=== PATIENT | male | born 1940 | race Caucasian/White ===

== ENCOUNTER 2018-06-24 06:10 | Day surgery (SDC) | payer OTHER, MEDICARE ==
[2018-06-24] MEDS ORDERED: Ringers Lactate 1,000 ML IV ONE (06:39)
[2018-06-24] MEDS ORDERED: LIDOCAINE 1% MPF 2 ML AMPULE ONE (07:49)
[2018-06-24] MEDS ORDERED: PROPOFOL 200 MG/20 ML VIAL IV ONE (07:49)
--- NOTE | 2018-06-24 08:21 | ENDO RPT ---
[address], [address] COLONOSCOPY PROCEDURE REPORT EXAM DATE: 06/24/2018 PATIENT NAME: Jose David Rangel MR #: [id number] BIRTHDATE: 1940 ATTENDING: Yonathan Oro Dr STATUS: outpatient TOOL/DIE MAKER: Theresa Coleman and Abby Washington RN INDICATIONS: The patient is a 78 yr old Male here for a colonoscopy due to personal history of colon polyps PROCEDURE PERFORMED: Colonoscopy MEDICATIONS: Per Anesthesia. ESTIMATED BLOOD LOSS: None CONSENT: The patient understands the risks and benefits of the procedure and understands that these risks include, but are not limited to: sedation, allergic reaction, infection, perforation and/or bleeding. Alternative means of evaluation and treatment include, among others: physical exam, x-rays, and/or surgical intervention. The patient elects to proceed with this endoscopic procedure. DESCRIPTION OF PROCEDURE: During intra-op preparation period all mechanical medical equipment was checked for proper function. Hand hygiene and appropriate measures for infection prevention was taken. Procedure, possible complications, alternatives including, but not limited to possibility of bleeding, perforation, tear, infection, sepsis, need for surgery, need for blood transfusion, were explained to the patient. After the risks, benefits and alternatives of the procedure were thoroughly explained, Informed consent was verified, confirmed and timeout was successfully executed by the treatment team. The patient was placed in the left lateral position. A digital rectal exam was performed and revealed a possible small nodule on the right lobe of the prostate. After appropriate level of anesthesia, the scope was passed. The [id number] ([id number]) endoscope was introduced through the anus and advanced to the cecum. The quality of the prep was poor. The instrument was then slowly withdrawn as the colon was fully examined. Scope withdrawal time was 7 minutes. COLON FINDINGS: Small internal hemorrhoids were found. Retroflexed views revealed small hemorrhoids. The scope was then completely withdrawn from the patient and the procedure terminated. ADVERSE EVENTS: There were no complications. IMPRESSIONS: 1. Small internal hemorrhoids 2. Intubation to cecum 3. Possible small nodule on the right lobe of the prostate RECOMMENDATIONS: 1. fiber rich diet 2. urology f/u RECALL: None scheduled due to age (78 y.o.) Yonathan Oro Dr eSigned: Yonathan Oro Dr 06/24/2018 8:09 AM cc: CPT CODES: ICD9 CODES: 600.1 Nodular prostate PATIENT NAME: Jose David Rangel MR#: [id number]
--- OUTSIDE RECORDS SUMMARY | 2018-06-24 08:24 | XMS REPORT | Clinical Summary ---
:1940 Author Organization [facility] Address [address] [place] [address] Phone Care Team Providers Name Role Phone Unavailable Primary Care Provider Unavailable Allergies Active Allergy Reactions Severity Noted Date Comments Codeine 09/18/2016 Stomach cramps Current Medications Prescription Sig. Disp. Refills Start Date End Date Status clopidogrel (PLAVIX) 75 Take 75 mg by mouth Active mg tablet daily. digoxin (LANOXIN) 0.125 Take 125 mcg by Active MG tablet mouth daily. carvedilol (COREG) 6.25 Take 6.25 mg by Active MG tablet mouth 2 (two) times daily with breakfast and dinner. pravastatin (PRAVACHOL) Take 80 mg by mouth Active 80 MG tablet daily. sacubitril-valsartan Take 1 tablet by Active (ENTRESTO) 24-26 mg Tab mouth 2 (two) times daily. omeprazole (PRILOSEC) 20 Take 20 mg by mouth Active MG capsule daily. aspirin 81 MG EC tablet Take 81 mg by mouth Active daily. Active Problems Problem Noted Date Cardiomyopathy (HCC) 09/19/2016 Social History Tobacco Use Types Packs/Day Years Used Date Former Smoker Quit: 10/13/1973 Alcohol Use Drinks/Week oz/Week Comments No ocassional Sex Assigned at Date Recorded Not on file Last Filed Vital Signs Not on file Plan of Treatment Not on file Implants Implanted Type Area City Route Driver Device Expiration Model / Identifier Date Serial / Lot Lead [id number] Df4 Active Sc Sprint 55cm Pacemaker Lead N/A: MEDTRONIC [id number] / Implanted: Qty: 1 on 09/19/2016 by Sly Nieto MD Heart [id number] / [id number] Icd-Vr [id number] Visia Mri Af Us Df4 Pacemakers N/A: [employer]TRONIC 01/07/2018 [id number] / Implanted: Qty: 1 on 09/19/2016 by Sly Nieto MD Chest [id number] / Wall [id number] Results Not on fileafter 06/23/2017
== END 2018-06-24 08:41 | disposition home or self-care (01) ==
LOC: OR 06:10
PROVIDERS: ATTEND Internal Medicine Gastroenterology
PROC: 0DJD8ZZ Inspection of Lower Intestinal Tract, Via Natural or Artificial Opening Endoscopic (ICD-10-PCS; principal; 2018-06-24 07:30)
DX: K64.8 Other hemorrhoids (principal); Z86.010 Personal history of colon polyps; I10 Essential (primary) hypertension; I25.10 Atherosclerotic heart disease of native coronary artery without angina pectoris; K21.9 Gastro-esophageal reflux disease without esophagitis; Z91.011 Allergy to milk products; Z88.6 Allergy status to analgesic agent; Z95.810 Presence of automatic (implantable) cardiac defibrillator; Z95.1 Presence of aortocoronary bypass graft; Z87.891 Personal history of nicotine dependence; Z80.1 Family history of malignant neoplasm of trachea, bronchus and lung; Z80.51 Family history of malignant neoplasm of kidney; Z82.3 Family history of stroke
CPT/HCPCS: 45378; J2001

== ENCOUNTER 2018-12-11 14:56 | Emergency (ER) | payer OTHER, MEDICARE ==
--- OUTSIDE RECORDS SUMMARY | 2018-12-11 14:58 | XMS REPORT | Clinical Summary ---
:1940 Author Organization [facility] Address [address] [place] [address] Care Team Providers Name Role Phone Stuart Clemens MD Primary Care Provider Allergies Active Allergy Reactions Severity Noted Date Comments Codeine 09/18/2016 Stomach cramps Medications Medication Sig Dispensed Refills Start Date End Date Status clopidogrel (PLAVIX) Take 75 mg by mouth 0 Active 75 mg tablet daily. digoxin (LANOXIN) Take 125 mcg by 0 Active 0.125 MG tablet mouth daily. carvedilol (COREG) Take 6.25 mg by 0 Active 6.25 MG tablet mouth 2 (two) times daily with breakfast and dinner. pravastatin Take 80 mg by mouth 0 Active (PRAVACHOL) 80 MG daily. tablet sacubitril-valsartan Take 1 tablet by 0 Active (ENTRESTO) 24-26 mg mouth 2 (two) times Tab daily. omeprazole (PRILOSEC) Take 20 mg by mouth 0 Active 20 MG capsule daily. aspirin 81 MG EC Take 81 mg by mouth 0 Active tablet daily. Active Problems Problem Noted Date Cardiomyopathy 09/19/2016 Social History Tobacco Use Types Packs/Day Years Used Date Former Smoker Quit: 10/13/1973 Alcohol Use Drinks/Week oz/Week Comments No ocassional Sex Assigned at Date Recorded Not on file Job Start Date Occupation Industry Not on file Not on file Not on file Travel History Travel Start Travel End No recent travel history available. Last Filed Vital Signs Not on file Plan of Treatment Not on file Implants Implanted Type Area Operations Vice President Device Shelf Model / Identifier Expiration Serial / Date Lot Lead [id number] Df4 Active Sc Sprint 55cm Pacemaker Lead N/A: [employer] [id number] / Implanted: Qty: 1 on 09/19/2016 by Sly Nieto MD Heart [id number] / [id number] Icd-Vr [id number] Visia Mri Af Us Df4 Pacemakers N/A: [employer] 01/07/2018 [id number] / Implanted: Qty: 1 on 09/19/2016 by Sly Nieto MD Chest [id number] / Wall [id number] Results Not on fileafter 12/10/2017 Insurance Payer Benefit Plan / Group Subscriber ID Type Phone Address MEDICARE MEDICARE A B xxxxxxxxxx Medicare MCR SUPPLEMENT/INDIVIDUAL AARP/[facility] xxxxxxxxxxx [facility] [place] [address] Advance Directives For more information, please contact:[address] [phone] Code Status Date Activated Date Inactivated Comments Full Code 09/19/2016 10:28 AM 09/20/2016 1:24 PM This code status was determined by: Patient
[2018-12-11] MEDS ORDERED: SILVER NITRATE 1 APPL TOP ONE (15:40)
--- NOTE | 2018-12-11 15:47 | ER ---
Nurse's Notes [facility] Name: Jose David Rangel Age: 78 yrs Sex: Male : 1940 Arrival Date: 12/11/2018 Time: 14:59 Bed 25 Private MD: Stuart Clemens Diagnosis: Abrasion of left upper arm Presentation: 12/11 15:02 Presenting complaint: Patient states: i had a biopsy on my L upper arm and its still hj bleeding till today; reports taking blood thinners- aspirin 81 mg and plavix;. Transition of care: patient was not received from another setting of care. Onset of symptoms was December 11, 2018. Risk Assessment: Do you want to hurt yourself or someone else? Patient reports no desire to harm self or others. Initial Sepsis Screen: Does the patient meet any 2 criteria? No. Patient's initial sepsis screen is negative. Does the patient have a suspected source of infection? No. Patient's initial sepsis screen is negative. Care prior to arrival: None. 15:02 Method Of Arrival: Ambulatory 15:02 Acuity: ANALILIA 4 hj Triage Assessment: 15:05 General: Appears in no apparent distress. uncomfortable, Behavior is calm, cooperative, hj appropriate for age. Pain: Complains of pain in left bicep. Historical: - Allergies: 15:05 Codeine; hj - Home Meds: 15:05 Aspirin Oral [Active]; Plavix Oral [Active]; hj 15:05 Digoxin Oral [Active]; hj - PMHx: 15:05 Hypertension; Myocardial infarction; hj - PSHx: 15:05 CABG; Heart stents; Defibrillator; hj - Immunization history:: Adult Immunizations up to date. - Social history:: Smoking status: Patient/guardian denies using tobacco, Patient/guardian denies using alcohol. - Ebola Screening: : Patient negative for fever greater than or equal to 101.5 degrees Fahrenheit, and additional compatible Ebola Virus Disease symptoms Patient denies exposure to infectious person Patient denies travel to an Ebola-affected area in the 21 days before illness onset. Screenin:05 Abuse screen: Denies threats or abuse. Denies injuries from another. Nutritional hj screening: No deficits noted. Tuberculosis screening: No symptoms or risk factors identified. Fall Risk None identified. Assessment: 15:26 General: Appears in no apparent distress. comfortable, well groomed, well developed, tl3 well nourished, Behavior is calm, cooperative, appropriate for age. Pain: Denies pain. Neuro: Level of Consciousness is awake, alert, Oriented to person, place, time, situation, Appropriate for age. Cardiovascular: Patient's skin is warm and dry. Respiratory: Airway is patent Respiratory effort is even, unlabored, Respiratory pattern is regular, symmetrical. GI: No signs and/or symptoms were reported involving the gastrointestinal system. : No signs and/or symptoms were reported regarding the genitourinary system. EENT: No signs and/or symptoms were reported regarding the EENT system. Derm: Wound noted left arm and left bicep Other: pt had biopsy yesterday, site continues to bleed. 16:38 Reassessment: Patient appears in no apparent distress at this time. No changes from tl3 previously documented assessment. Patient and/or family updated on plan of care and expected duration. Pain level reassessed. Patient is alert, oriented x 3, equal unlabored respirations, skin warm/dry/pink. pt being discharged. Vital Signs: 15:06 BP 142 / 66; Pulse 72; Resp 18; Temp 98.6(O); Pulse Ox 96% on R/A; Weight 73.48 kg; Height 5 ft. 4 in. (162.56 cm); Pain 5/10; 16:38 BP 136 / 84; Pulse 76; Resp 18; Pulse Ox 100% on R/A; tl3 15:06 Body Mass Index 27.81 (73.48 kg, 162.56 cm) ED Course: 14:59 Patient arrived in ED. mr 15:00 Stuart Clemens DO is Private Physician. mr 15:04 Triage completed. hj 15:06 Arm band placed on right wrist. hj 15:06 Patient has correct armband on for positive identification. Bed in low position. Call light in reach. Side rails up X 1. Adult w/ patient. 15:24 Blanca Levine FNP is PHCP. nh 15:24 Samir Crane MD is Attending Physician. nh 15:26 Shannan Myles, RN is Primary Nurse. tl3 16:38 No provider procedures requiring assistance completed. Patient did not have IV access tl3 during this emergency room visit. Administered Medications: No medications were administered Outcome: 15:46 Discharge ordered by . wv 16:38 Discharged to home ambulatory. tl3 16:38 Condition: stable 16:38 Discharge instructions given to patient, Instructed on discharge instructions, follow up and referral plans. Demonstrated understanding of instructions, follow-up care. 16:41 Patient left the ED. tl3 Signatures: Blanca Levine, DATABASE MODELER DATABASE MODELER Tanya Walsh Neno Pena RN RN Shannan Myles RN RN tl3 Corrections: (The following items were deleted from the chart) 15:08 15:06 Pulse 72bpm; Resp 18bpm; Pulse Ox 96% RA; Temp 98.6F Oral; 73.48 kg; Height 5 ft. hj 4 in.; BMI: 27.8; Pain 5/10; hj
--- NOTE | 2018-12-11 15:47 | EDPHYS ---
Physician Documentation [facility] Name: Jose David Rangel Age: 78 yrs Sex: Male : 1940 Arrival Date: 12/11/2018 Time: 14:59 Bed 25 Private MD: Stuart Clemens ED Physician Samir Crane HPI: 12/11 15:40 This 78 yrs old Male presents to ER via Ambulatory with complaints of Wound nh bleeding. 15:40 Onset: The symptoms/episode began/occurred acutely, just prior to arrival. Modifying nh factors: The patient symptoms are alleviated by nothing, the patient symptoms are aggravated by nothing. The patient has not experienced similar symptoms in the past. Patient had biopsy yesterday and is on blood thinners. Wound will not stop bleeding. . Historical: - Allergies: 15:05 Codeine; hj - Home Meds: 15:05 Aspirin Oral [Active]; Plavix Oral [Active]; hj 15:05 Digoxin Oral [Active]; hj - PMHx: 15:05 Hypertension; Myocardial infarction; hj - PSHx: 15:05 CABG; Heart stents; Defibrillator; hj - Immunization history:: Adult Immunizations up to date. - Social history:: Smoking status: Patient/guardian denies using tobacco, Patient/guardian denies using alcohol. - Ebola Screening: : Patient negative for fever greater than or equal to 101.5 degrees Fahrenheit, and additional compatible Ebola Virus Disease symptoms Patient denies exposure to infectious person Patient denies travel to an Ebola-affected area in the 21 days before illness onset. ROS: 15:40 Constitutional: Negative for fever, chills, and weight loss, Eyes: Negative for injury, nh pain, redness, and discharge, ENT: Negative for injury, pain, and discharge, Neck: Negative for injury, pain, and swelling, Cardiovascular: Negative for chest pain, palpitations, and edema, Respiratory: Negative for shortness of breath, cough, wheezing, and pleuritic chest pain, Abdomen/GI: Negative for abdominal pain, nausea, vomiting, diarrhea, and constipation, Back: Negative for injury and pain, : Negative for injury, bleeding, discharge, and swelling, MS/Extremity: Negative for injury and deformity, Neuro: Negative for headache, weakness, numbness, tingling, and seizure. 15:40 Skin: Positive for bleeding. Exam: 15:40 Constitutional: This is a well developed, well nourished patient who is awake, alert, nh and in no acute distress. Head/Face: Normocephalic, atraumatic. Eyes: Pupils equal round and reactive to light, extra-ocular motions intact. Lids and lashes normal. Conjunctiva and sclera are non-icteric and not injected. Cornea within normal limits. Periorbital areas with no swelling, redness, or edema. ENT: Nares patent. No nasal discharge, no septal abnormalities noted. Tympanic membranes are normal and external auditory canals are clear. Oropharynx with no redness, swelling, or masses, exudates, or evidence of obstruction, uvula midline. Mucous membranes moist. Neck: Trachea midline, no thyromegaly or masses palpated, and no cervical lymphadenopathy. Supple, full range of motion without nuchal rigidity, or vertebral point tenderness. No Meningismus. Chest/axilla: Normal chest wall appearance and motion. Nontender with no deformity. No lesions are appreciated. Cardiovascular: Regular rate and rhythm with a normal S1 and S2. No gallops, murmurs, or rubs. Normal PMI, no JVD. No pulse deficits. Respiratory: Lungs have equal breath sounds bilaterally, clear to auscultation and percussion. No rales, rhonchi or wheezes noted. No increased work of breathing, no retractions or nasal flaring. Abdomen/GI: Soft, non-tender, with normal bowel sounds. No distension or tympany. No guarding or rebound. No evidence of tenderness throughout. Back: No spinal tenderness. No costovertebral tenderness. Full range of motion. MS/ Extremity: Pulses equal, no cyanosis. Neurovascular intact. Full, normal range of motion. Neuro: Awake and alert, GCS 15, oriented to person, place, time, and situation. Cranial nerves II-XII grossly intact. Motor strength 5/5 in all extremities. Sensory grossly intact. Cerebellar exam normal. Normal gait. Psych: Awake, alert, with orientation to person, place and time. Behavior, mood, and affect are within normal limits. 15:40 Skin: injury, Patient has wound to left upper arm from biopsy performed yesterday. It is still oozing blood. Vital Signs: 15:06 BP 142 / 66; Pulse 72; Resp 18; Temp 98.6(O); Pulse Ox 96% on R/A; Weight 73.48 kg; Height 5 ft. 4 in. (162.56 cm); Pain 5/10; 16:38 BP 136 / 84; Pulse 76; Resp 18; Pulse Ox 100% on R/A; tl3 15:06 Body Mass Index 27.81 (73.48 kg, 162.56 cm) MDM: 15:24 Patient medically screened. ne 15:40 Data reviewed: vital signs, nurses notes, I have discussed the patient's ne presentation/case with the attending Emergency Department Physician; and as a result, I will discharge patient. Counseling: I had a detailed discussion with the patient and/or guardian regarding: the historical points, exam findings, and any diagnostic results supporting the discharge/admit diagnosis, the need for outpatient follow up, to return to the emergency department if symptoms worsen or persist or if there are any questions or concerns that arise at home. Administered Medications: No medications were administered Disposition: 12/11/18 15:46 Discharged to Home. Impression: Abrasion of left upper arm. - Condition is Stable. - Discharge Instructions: Wound Care. - Medication Reconciliation Form, Thank You Letter, Antibiotic Education, Prescription Opioid Use form. - Follow up: Private Physician; When: 48 Hours; Reason: Recheck today's complaints. - Problem is new. - Symptoms are resolved. Signatures: Blanca Levine, GEOPHYSICAL DATA TECHNICIAN GEOPHYSICAL DATA TECHNICIAN ne Neno Pena RN RN Shannan Myles RN RN tl3 Corrections: (The following items were deleted from the chart) 16:41 15:46 12/11/2018 15:46 Discharged to Home. Impression: Abrasion of left upper arm. tl3 Condition is Stable. Forms are Medication Reconciliation Form, Thank You Letter, Antibiotic Education, Prescription Opioid Use. Follow up: Private Physician; When: 48 Hours; Reason: Recheck today's complaints. Problem is new. Symptoms are resolved. nh
== END 2018-12-11 16:41 | disposition home or self-care (01) ==
LOC: ER 14:56
DX: S40.812A Abrasion of left upper arm, initial encounter (principal); I10 Essential (primary) hypertension; I25.2 Old myocardial infarction; Z79.01 Long term (current) use of anticoagulants; Z79.82 Long term (current) use of aspirin; Z88.5 Allergy status to narcotic agent; Z95.1 Presence of aortocoronary bypass graft; Z95.810 Presence of automatic (implantable) cardiac defibrillator
CPT/HCPCS: 99281

== ENCOUNTER 2020-06-04 12:34 | Emergency (ER) | payer OTHER, MEDICARE ==
--- OUTSIDE RECORDS SUMMARY | 2020-06-04 12:36 | XMS REPORT | Clinical Summary ---
:1940 Author Organization [facility] Address [address] [place] [address] Care Team Providers Name Role Phone Jun Clemens MD Primary Care Provider Allergies Active [...] Packs/Day Years Used Date Former Smoker Quit: 10/13/18 75 Alcohol Use Drinks/Week oz/Week Comments No ocassional Sex Assigned at Date Recorded Not on file Job Start Date Occupation Industry Not on file Not on file Not on file Travel History Travel Start Travel End No recent travel history available. Last Filed Vital Signs Not on file Plan of Treatment Not on file Implants Implanted Type Area Csr Technician Device Shelf Model / Identifier Expiration Serial / Date Lot Lead [id number] Df4 Active Sc Sprint 55cm Pacemaker Lead N/A: [employer] 2018 [id number] / Implanted: Qty: 1 on 09/19/2016 by Sly Nieto MD art [id number] / [id number] Icd-Vr [id number] Visia Mri Af Us Df4 Pacemakers N/A: [employer] 01/07/2018 [id number] / Implanted: Qty: 1 on 09/19/2016 by Sly Nieto MD est [id number] / Wall [id number] Results Not on fileafter 06/04/2019 Insurance Payer Benefit Plan / Group Subscriber ID Type Phone A ddress MEDICARE MEDICARE A B xxxxxxxxxx Medicare MCR SUPPLEMENT/INDIVIDUAL AARP/[facility] xxxxxxxxxxx [facility] Advance Directives For more information, please contact:[address] [phone] Code Status Date Activated Date Inactivated Comments Full Code 09/19/2016 10:28 AM 09/20/2016 1:24 PM This code status was determined by: Patient
--- NOTE | 2020-06-04 15:06 | RAD REPORT ---
EXAM DESCRIPTION: RAD - Chest Single View - 06/04/2020 2:20 pm CLINICAL HISTORY: Cough;SOB COMPARISON: October 2017 TECHNIQUE: AP portable chest image was obtained 06/04/2020 2:20 pm . FINDINGS: Interstitial thickening is present. There are scattered patchy alveolar opacities present. No focal dense consolidation or mass. Cardiomegaly is present. Vascular engorgement in place. Defibr illator remains in place. CABG surgical changes seen. No measurable pleural effusion and no pneumotho rax. No acute bony abnormality seen. No acute aortic findings suspected. IMPRESSION: Mild to moderate CHF/volume overload pattern.
[2020-06-04 15:07] LABS: Protime INR 1.92
[2020-06-04 15:16] LABS: Absolute Lymphocytes (CBC) 0.9 K/uL (0.7-4.9); Basophils % 0.4 % (0-1.3); Hematocrit 38.6 % (39.6-49.0); Lymphocytes % 12.9 % (15.3-44.8); MPV 11.1 fL (7.6-11.3); RBC Red Blood Cell Count 3.99 M/uL (4.33-5.43)
[2020-06-04 15:20] LABS: Albumin 3.6 g/dL (3.4-5.0); Bilirubin Direct 0.4 mg/dL (0-0.2); Potassium 4.3 mmol/L (3.5-5.1); Protein, Total 6.9 g/dL (6.4-8.2); Troponin (Emerg Dept Use Only) 0.03 ng/mL (0.0-0.045)
--- NOTE | 2020-06-04 16:01 | EDPHYS ---
Physician Documentation [facility] Name: Jose David Rangel Age: 80 yrs Sex: Male : 1940 Arrival Date: 06/04/2020 Time: 12:35 Bed 6 Private MD: ED Physician Everton Guy HPI: 06/04 13:59 This 80 yrs old Male presents to ER via Wheelchair with complaints of pm1 Breathing Difficulty. 13:59 The patient has shortness of breath with light activity. Onset: The symptoms/episode pm1 began/occurred 3 week(s) ago. Duration: The symptoms are continuous. The patient's shortness of breath is aggravated by light activity, is alleviated by rest. Associated signs and symptoms: Pertinent positives: productive cough, Pertinent negatives: chest pain, dizziness, fever, nausea, vomiting. The patient has been recently seen by a physician: Seen by his six sigma black belt engineer for the same complaint. 15:36 Patient is not currently taking any diuretics and has been drinking 6 bottled beaver pm1 per day. Historical: - Allergies: 13:00 Codeine; jl7 - Home Meds: 13:00 Digoxin Oral [Active]; Aspirin Oral [Active]; Eliquis oral oral [Active]; pravastatin jl7 oral oral [Active]; carvedilol oral oral [Active]; - PMHx: 13:00 Hypertension; Myocardial infarction; Hyperlipidemia; jl7 - PSHx: 13:00 CABG; Heart stents; Defibrillator; jl7 - Immunization history:: Adult Immunizations up to date. - Social history:: Smoking status: Patient denies any tobacco usage or history of. ROS: 13:59 Constitutional: Negative for fever, chills, and weight loss, Eyes: Negative for injury, pm1 pain, redness, and discharge, ENT: Negative for injury, pain, and discharge, Neck: Negative for injury, pain, and swelling, Cardiovascular: Negative for chest pain, palpitations, and edema. 13:59 Abdomen/GI: Negative for abdominal pain, nausea, vomiting, diarrhea, and constipation, Back: Negative for injury and pain, MS/Extremity: Negative for injury and deformity, Skin: Negative for injury, rash, and discoloration, Neuro: Negative for headache, weakness, numbness, tingling, and seizure. 13:59 Respiratory: Positive for cough, shortness of breath, Negative for wheezing. Exam: 13:59 Constitutional: This is a well developed, well nourished patient who is awake, alert, pm1 and in no acute distress. Head/Face: Normocephalic, atraumatic. Eyes: Pupils equal round and reactive to light, extra-ocular motions intact. Lids and lashes normal. Conjunctiva and sclera are non-icteric and not injected. Cornea within normal limits. Periorbital areas with no swelling, redness, or edema. ENT: Nares patent. No nasal discharge, no septal abnormalities noted. Tympanic membranes are normal and external auditory canals are clear. Oropharynx with no redness, swelling, or masses, exudates, or evidence of obstruction, uvula midline. Mucous membranes moist. Neck: Trachea midline, no thyromegaly or masses palpated, and no cervical lymphadenopathy. Supple, full range of motion without nuchal rigidity, or vertebral point tenderness. No Meningismus. Chest/axilla: Normal chest wall appearance and motion. Nontender with no deformity. No lesions are appreciated. Cardiovascular: Regular rate and rhythm with a normal S1 and S2. No gallops, murmurs, or rubs. Normal PMI, no JVD. No pulse deficits. 13:59 Back: No spinal tenderness. No costovertebral tenderness. Full range of motion. 13:59 Skin: Warm, dry with normal turgor. Normal color with no rashes, no lesions, and no evidence of cellulitis. MS/ Extremity: Pulses equal, no cyanosis. Neurovascular intact. Full, normal range of motion. 13:59 Respiratory: the patient does not display signs of respiratory distress, Respirations: normal, Breath sounds: decreased breath sounds, are located in both bases. 13:59 Abdomen/GI: Inspection: abdomen appears normal, Palpation: abdomen is soft and non-tender, in all quadrants. 13:59 Neuro: Exam negative for acute changes, Orientation: is normal, Mentation: is normal, Motor: is normal, moves all fours, Gait: is steady, at a normal pace, without difficulty. Vital Signs: 12:55 BP 147 / 86; Pulse 73; Resp 17; Temp 98; Pulse Ox 98% ; jl7 14:00 BP 136 / 82; Pulse 82; Resp 17; Pulse Ox 97% ; bp 15:00 BP 143 / 80; Pulse 60; Resp 16; Pulse Ox 96% ; bp 16:00 BP 143 / 67; Pulse 72; Resp 16; Pulse Ox 99% ; bp MDM: 13:57 Refusal of service: The patient/guardian displays adequate decision making capability pm1 and despite a detailed discussion of alternatives, benefits, risks, and consequences refuses: patient refuses covid swab, flu, swab, strep swab, blood work and ECG. He does not want any swabs, especially any in the nose. He refused the EKG and blood work because he said that he just got them done with his six sigma black belt engineer. He just wants a chest x-ray. 14:17 Data reviewed: vital signs. Data interpreted: Pulse oximetry: on room air is 98 %. pm1 Interpretation: normal. 15:46 Physician consultation: Raghav Delgado MD was called at 15:46. pm1 15:57 Physician consultation: Dynamics Ax Developer Miguel Covering for Dr. Raghav Delgado. Informed pm1 that the patient does not want to stay in the hospital and would rather be treated outpatient. Patient is not currently taking any diuretics. Agrees with plan to discharge the patient home with Lasix and can follow up with him in 2-3 days in the office. 15:57 Counseling: I had a detailed discussion with the patient and/or guardian regarding: the pm1 historical points, exam findings, and any diagnostic results supporting the discharge/admit diagnosis, lab results, radiology results, the need for outpatient follow up, to return to the emergency department if symptoms worsen or persist or if there are any questions or concerns that arise at home. 06/04 14:38 Order name: Basic Metabolic Panel; Complete Time: 15:36 pm1 06/04 14:38 Order name: CBC with Diff pm1 06/04 14:38 Order name: LFT's; Complete Time: 15:36 pm1 06/04 14:38 Order name: Magnesium; Complete Time: 15:36 pm1 06/04 14:38 Order name: NT PRO-BNP; Complete Time: 15:36 pm1 06/04 14:38 Order name: PT-INR; Complete Time: 15:36 pm1 06/04 13:57 Order name: Chest Single View XRAY; Complete Time: 15:11 pm1 06/04 14:38 Order name: Troponin (emerg Dept Use Only); Complete Time: 15:36 pm1 06/04 14:38 Order name: EKG; Complete Time: 14:39 pm1 06/04 14:38 Order name: Cardiac monitoring; Complete Time: 14:59 pm1 06/04 14:38 Order name: EKG - Nurse/Tech; Complete Time: 14:59 pm1 06/04 14:38 Order name: IV Saline Lock; Complete Time: 14:59 pm1 06/04 14:38 Order name: Labs collected and sent; Complete Time: 14:59 pm1 06/04 14:38 Order name: O2 Per Protocol; Complete Time: 14:44 pm1 06/04 14:38 Order name: O2 Sat Monitoring; Complete Time: 14:44 pm1 Administered Medications: 16:00 Drug: Lasix 20 mg Route: IVP; Site: right antecubital; bp Disposition: 06/05 12:03 Co-signature as Attending Physician, Everton Guy MD I agree with the assessment and libra plan of care. Disposition: 06/04/20 16:01 Discharged to Home. Impression: Congestive heart failure, Volume overload. - Condition is Stable. - Discharge Instructions: Heart Failure. - Prescriptions for Lasix 20 mg Oral Tablet - take 1 tablet by ORAL route once daily; 20 tablet. - Medication Reconciliation Form, Thank You Letter, Antibiotic Education, Prescription Opioid Use form. - Follow up: Emergency Department; When: As needed; Reason: Worsening of condition. Follow up: Private Physician; When: 2 - 3 days; Reason: Recheck today's complaints, Continuance of care, Re-evaluation by your physician. - Problem is new. - Symptoms have improved. Signatures: Dispatcher [employer] Everton Almanza MD MD cha Calderon, Audri, RN RN aa5 Tomas Apodaca, MAYE SHANK STITCHER pm1 Brittanie Morgan RN RN jl7 Jostin Ge RN RN bp Corrections: (The following items were deleted from the chart) 06/04 13:59 13:46 Patient medically screened. pm1 pm1 16:31 16:01 06/04/2020 16:01 Discharged to Home. Impression: Congestive heart failureVolume aa5 overload. Condition is Stable. Forms are Medication Reconciliation Form, Thank You Letter, Antibiotic Education, Prescription Opioid Use. Follow up: Emergency Department; When: As needed; Reason: Worsening of condition. Follow up: Private Physician; When: 2 - 3 days; Reason: Recheck today's complaints, Continuance of care, Re-evaluation by your physician. Problem is new. Symptoms have improved. pm1
--- NOTE | 2020-06-04 16:01 | ER ---
Nurse's Notes [facility] Name: Jose David Rangel Age: 80 yrs Sex: Male : 1940 Arrival Date: 06/04/2020 Time: 12:35 Bed 6 Private MD: Diagnosis: Volume overload;Congestive heart failure Presentation: 06/04 12:55 Chief complaint: Chief complaint: Patient states: Worsening shortness of breath x 3 jl7 weeks, denies fever, denies cough. Coronavirus screen: Client denies travel out of the [place] in the last 14 days. shortness of breath, Client presents with at least one sign or symptom that may indicate coronavirus-19. Standard/surgical mask placed on the client. Provider contacted for isolation considerations. Ebola Screen: No symptoms or risks identified at this time. Initial Sepsis Screen: Does the patient meet any 2 criteria? No. Patient's initial sepsis screen is negative. Does the patient have a suspected source of infection? No. Patient's initial sepsis screen is negative. Risk Assessment: Do you want to hurt yourself or someone else? Patient reports no desire to harm self or others. Onset of symptoms was May 13, 2020. Care prior to arrival: None. Transition of care: patient was not received from another setting of care. 12:55 Method Of Arrival: Wheelchair jl7 12:55 Acuity: ANALILIA 3 jl7 Triage Assessment: 13:00 General: Appears in no apparent distress. uncomfortable, Behavior is calm, cooperative, jl7 appropriate for age. Pain: Denies pain. Neuro: Level of Consciousness is awake, alert, obeys commands, Oriented to person, place, time, situation. Cardiovascular: Patient's skin is warm and dry. Respiratory: Reports shortness of breath at rest Airway is patent Respiratory effort is even, unlabored, Respiratory pattern is regular, symmetrical, Onset: The symptoms/episode began/occurred gradually, the patient has mild shortness of breath. Derm: Skin is pink, warm \T\ dry. Historical: - Allergies: 13:00 Codeine; jl7 - Home Meds: 13:00 Digoxin Oral [Active]; Aspirin Oral [Active]; Eliquis oral oral [Active]; pravastatin jl7 oral oral [Active]; carvedilol oral oral [Active]; - PMHx: 13:00 Hypertension; Myocardial infarction; Hyperlipidemia; jl7 - PSHx: 13:00 CABG; Heart stents; Defibrillator; jl7 - Immunization history:: Adult Immunizations up to date. - Social history:: Smoking status: Patient denies any tobacco usage or history of. Screenin:05 Abuse screen: Denies threats or abuse. Denies injuries from another. Nutritional bp screening: No deficits noted. Tuberculosis screening: No symptoms or risk factors identified. Fall Risk None identified. Assessment: 13:00 General: SEE TRIAGE NOTE. bp 13:00 Cardiovascular: Rhythm is sinus rhythm. Respiratory: Airway is patent Breath sounds are bp coarse bilaterally. 14:30 Reassessment: PT NOW REQUESTING PREVIOUSLY DECLINED W/U. bp 16:00 Reassessment: PT DIURESING WELL. VS STABLE. bp 16:30 Reassessment: Patient is alert, oriented x 3, equal unlabored respirations, skin aa5 warm/dry/pink. Vital Signs: 12:55 BP 147 / 86; Pulse 73; Resp 17; Temp 98; Pulse Ox 98% ; jl7 14:00 BP 136 / 82; Pulse 82; Resp 17; Pulse Ox 97% ; bp 15:00 BP 143 / 80; Pulse 60; Resp 16; Pulse Ox 96% ; bp 16:00 BP 143 / 67; Pulse 72; Resp 16; Pulse Ox 99% ; bp ED Course: 12:35 Patient arrived in ED. ag5 12:57 Triage completed. jl7 13:00 Arm band placed on right wrist. Patient placed in waiting room, in a wheelchair, in jl7 view of staff members, Patient notified of wait time. 13:43 Tomas Apodaca NP is PHCP. pm1 13:43 Everton Guy MD is Attending Physician. pm1 14:04 Jostin Ge, MINNA is Primary Nurse. bp 14:05 Patient has correct armband on for positive identification. Bed in low position. Call bp light in reach. Side rails up X2. 14:20 Chest Single View XRAY In Process Unspecified. EDMS 14:55 Initial lab(s) drawn, by me, sent to lab. Inserted saline lock: 20 gauge in right kj1 antecubital area, using aseptic technique. Blood collected. 16:30 No provider procedures requiring assistance completed. IV discontinued, intact, aa5 bleeding controlled, No redness/swelling at site. Pressure dressing applied. Administered Medications: 16:00 Drug: Lasix 20 mg Route: IVP; Site: right antecubital; bp Outcome: 16:01 Discharge ordered by . pm1 16:30 Discharged to home ambulatory, with significant other. aa5 16:30 Condition: stable 16:30 Discharge instructions given to patient, Instructed on discharge instructions, follow up and referral plans. medication usage, Demonstrated understanding of instructions, follow-up care, medications, Prescriptions given X 1. 16:31 Patient left the ED. aa5 Signatures: Dispatcher [employer] EDMS Jessica Smith RN RN aa5 Tomas Apodaca, MAYE ASIAN STUDIES PROGRAM CHAIR pm1 Brittanie Morgan RN RN jl7 Jostin Ge RN RN Dilshad House ag5 Ibeth Kenney kj1
[2020-06-04] MEDS ORDERED: FUROSEMIDE 20 MG/ 2ML VIAL ONE (16:18)
[2020-06-04 17:08] LABS: Platelet Estimate DECR; Urine White Blood Cell Casts OK
[2020-06-04 17:09] LABS: Blood Morphology Comment NOT SEEN (NOT SEEN)
== END 2020-06-04 16:31 | disposition home or self-care (01) ==
LOC: ER 12:34
DX: I50.9 Heart failure, unspecified (principal); E87.70 Fluid overload, unspecified; I10 Essential (primary) hypertension; E78.5 Hyperlipidemia, unspecified; Z95.1 Presence of aortocoronary bypass graft; Z95.818 Presence of other cardiac implants and grafts; Z79.01 Long term (current) use of anticoagulants; Z79.82 Long term (current) use of aspirin; Z88.5 Allergy status to narcotic agent
CPT/HCPCS: 85025; 80048; 36415; 83735; 85610; 80076; 84484; 83880; 71045; J1940; 96374; 99284

== ENCOUNTER 2020-07-03 01:22 | Emergency (ER) | payer OTHER, MEDICARE ==
--- OUTSIDE RECORDS SUMMARY | 2020-07-03 01:23 | XMS REPORT | Clinical Summary ---
:1940 Author Organization [facility] Address [address] [place] [address] Care Team Providers Name Role Phone Jun [...] Not on file Implants Implanted Type Area Engine Designer Device Shelf Model / Identifier Expiration Serial / Date Lot Lead [id number] Df4 Active Sc Sprint 55cm Pacemaker Lead N/A: MEDT RONIC 2018 [id number] / Implanted: Qty: 1 on 09/19/2016 by Sly Nieto MD art [id number] / [id number] Icd-Vr [id number] Visia Mri Af Us Df4 Pacemakers N/A: MED[employer]ONIC 01/07/2018 [id number] / Implanted: Qty: 1 on 09/19/2016 by Sly Nieto MD est [id number] / Wall [id number] Results Not on fileafter 07/03/2019 Insurance Payer Benefit Plan / Group Subscriber ID Type Phone A ddress MEDICARE MEDICARE A B xxxxxxxxxx Medicare MCR SUPPLEMENT/INDIVIDUAL AARP/[facility] xxxxxxxxxxx [facility] Advance Directives For more information, please contact:[address] [phone] Code Status Date Activated Date Inactivated Comments Full Code 09/19/2016 10:28 AM 09/20/2016 1:24 PM This code status was determined by: Patient
[2020-07-03] MEDS ORDERED: PANTOPRAZOLE 40 MG INJ ONE ×2 (01:58→05:05)
[2020-07-03 02:02] LABS: Absolute Lymphocytes (CBC) 1.2 K/uL (0.7-4.9); Basophils % 0.5 % (0-1.3); Lymphocytes % 14.2 % (15.3-44.8); MPV 10.7 fL (7.6-11.3); RBC Red Blood Cell Count 1.65 M/uL (4.33-5.43)
[2020-07-03 02:05] LABS: Hematocrit 15.3 % (39.6-49.0)
[2020-07-03 02:06] LABS: Protime INR 2.43
[2020-07-03 02:16] LABS: Albumin 3.1 g/dL (3.4-5.0); Bilirubin Direct 0.2 mg/dL (0-0.2); Bilirubin Total 0.6 mg/dL (0.2-1.0); Potassium 3.9 mmol/L (3.5-5.1); Protein, Total 5.8 g/dL (6.4-8.2); Troponin (Emerg Dept Use Only) 0.06 ng/mL (0.0-0.045)
[2020-07-03] MEDS ORDERED: NA CHLORIDE 0.9% 500 ML ONE (03:51)
[2020-07-03] MEDS ORDERED: NA CHLORIDE 0.9% 250 ML ONE (05:05)
--- NOTE | 2020-07-03 06:05 | EDPHYS ---
Physician Documentation [facility] Name: Jose David Rangel Age: 80 yrs Sex: Male : 1940 Arrival Date: 07/03/2020 Time: 01:25 Bed 4 Private MD: Stuart Clemens ED Physician Kendall Gifford HPI: 07/03 01:57 This 80 yrs old Male presents to ER via EMS with complaints of Rectal mh7 Bleeding. 01:57 The patient presents to the emergency department with bleeding from the rectum/anus, mh7 that is moderate. Onset: The symptoms/episode began/occurred 1 week(s) ago. Context: the patient none. Modifying factors: The symptoms are alleviated by nothing, The symptoms are aggravated by bowel movement. Associate signs and symptoms: Pertinent positives: abdominal pain in the suprapubic area, lower GI bleeding, bright red, vomiting, Pertinent negatives: constipation, diarrhea, dysuria, fever. Historical: - Allergies: 01:25 Codeine; jb4 - Home Meds: 01:25 Aspirin Oral [Active]; Aspirin Oral [Active]; carvedilol Oral [Active]; Digoxin Oral jb4 [Active]; Eliquis Oral [Active]; Plavix Oral [Active]; pravastatin Oral [Active]; - PMHx: 01:25 Hyperlipidemia; Hypertension; Myocardial infarction; jb4 - PSHx: 01:25 CABG; Heart stents; Defibrillator; jb4 - Immunization history:: Adult Immunizations up to date. - Social history:: Smoking status: Patient denies any tobacco usage or history of. Patient/guardian denies using alcohol, street drugs. ROS: 01:57 Constitutional: Negative for fever, chills, and weight loss, Eyes: Negative for injury, mh7 pain, redness, and discharge, ENT: Negative for injury, pain, and discharge, Neck: Negative for injury, pain, and swelling, Cardiovascular: Negative for chest pain, palpitations, and edema, Respiratory: Negative for shortness of breath, cough, wheezing, and pleuritic chest pain, Back: Negative for injury and pain, : Negative for injury, bleeding, discharge, and swelling, MS/Extremity: Negative for injury and deformity, Skin: Negative for injury, rash, and discoloration, Neuro: Negative for headache, weakness, numbness, tingling, and seizure, Psych: Negative for depression, anxiety, suicide ideation, homicidal ideation, and hallucinations, Allergy/Immunology: Negative for hives, rash, and allergies, Endocrine: Negative for neck swelling, polydipsia, polyuria, polyphagia, and marked weight changes, Hematologic/Lymphatic: Negative for swollen nodes, abnormal bleeding, and unusual bruising. Exam: 01:57 Head/Face: Normocephalic, atraumatic. mh7 01:57 Neck: Trachea midline, no thyromegaly or masses palpated, and no cervical lymphadenopathy. Supple, full range of motion without nuchal rigidity, or vertebral point tenderness. No Meningismus. Chest/axilla: Normal chest wall appearance and motion. Nontender with no deformity. No lesions are appreciated. Cardiovascular: Regular rate and rhythm with a normal S1 and S2. No gallops, murmurs, or rubs. Normal PMI, no JVD. No pulse deficits. Respiratory: Lungs have equal breath sounds bilaterally, clear to auscultation and percussion. No rales, rhonchi or wheezes noted. No increased work of breathing, no retractions or nasal flaring. 01:57 Back: No spinal tenderness. No costovertebral tenderness. Full range of motion. 01:57 MS/ Extremity: Pulses equal, no cyanosis. Neurovascular intact. Full, normal range of motion. Neuro: Awake and alert, GCS 15, oriented to person, place, time, and situation. Cranial nerves II-XII grossly intact. Motor strength 5/5 in all extremities. Sensory grossly intact. Cerebellar exam normal. Normal gait. Psych: Awake, alert, with orientation to person, place and time. Behavior, mood, and affect are within normal limits. 01:57 Constitutional: The patient appears in no acute distress, alert, awake, uncomfortable. 01:57 Eyes: Periorbital structures: appear normal, Pupils: equal, round, and reactive to light and accomodation, Extraocular movements: intact throughout, Conjunctiva: pale, bilaterally, Corneas: Sclera: no appreciated abnormality, Lids and lashes: appear normal. 01:57 Abdomen/GI: Inspection: abdomen appears normal, Bowel sounds: normal, in all quadrants, Palpation: abdomen is soft and non-tender, in all quadrants, Rectal exam: rectal tone normal, Stool: grossly bloody, guaiac positive, hemorrhoid(s), are not appreciated, mass, is not appreciated, swelling, is not appreciated, tenderness, is not appreciated, Indicators: McBurney's point is not tender, Almonte's sign is negative, Rovsing's sign is negative, Obturator sign is negative, Psoas sign is negative, Liver: no appreciated palpable abnormalities, Hernia: not appreciated. 01:57 Skin: pale. Vital Signs: 01:25 BP 111 / 58; Pulse 74; Resp 16; Temp 98.0(TE); Pulse Ox 100% on R/A; Weight 72.57 kg jb4 (R); Height 5 ft. 4 in. (162.56 cm) (R); Pain 9/10; 02:00 BP 117 / 75; Pulse 71; Resp 18; Pulse Ox 100% on R/A; mg2 03:43 BP 105 / 53; Pulse 73; Resp 18; Pulse Ox 100% on R/A; mg2 04:45 BP 113 / 52; Pulse 72; Resp 18; Pulse Ox 100% on R/A; sg 05:30 BP 120 / 43; Pulse 73; Resp 18; Pulse Ox 100% on R/A; sg 06:02 BP 121 / 90; Pulse 72; Resp 18; Pulse Ox 100% on R/A; mg2 06:15 BP 123 / 73; Pulse 75; Resp 18; Temp 98.2; Pulse Ox 100% on R/A; sg 07:00 BP 127 / 61; Pulse 77; Resp 13; Temp 98.2; Pulse Ox 100% ; bp 01:25 Body Mass Index 27.46 (72.57 kg, 162.56 cm) [facility] MDM: 01:[address] [facility] 06:01 Differential diagnosis: hemorrhoids, fissure, Rectal Bleeding, GI Bleeding. Data [facility] reviewed: vital signs, nurses notes, EMS record, lab test result(s), cardiac enzymes, CBC, electrolytes, urinalysis, EKG, radiologic studies, CT scan, plain films. Data interpreted: Pulse oximetry: on room air is 100 %. Interpretation: normal. Counseling: I had a detailed discussion with the patient and/or guardian regarding: the historical points, exam findings, and any diagnostic results supporting the discharge/admit diagnosis, lab results, radiology results, the need to transfer to another facility, for higher level of care, [facility] does not immediately have the required specialist. Response to treatment: the patient's symptoms have markedly improved after treatment. 07/03 01:43 Order name: CBC with Diff; Complete Time: 02:10 [facility] 07/03 01:43 Order name: Basic Metabolic Panel; Complete Time: 02:29 [facility] 07/03 01:43 Order name: Protime (+inr); Complete Time: 02: [facility] 07/03 01:43 Order name: Ptt, Activated; Complete Time: 02: [facility] 07/03 01:43 Order name: LFT's; Complete Time: 02:29 [facility] 07/03 01:43 Order name: Troponin (emerg Dept Use Only); Complete Time: 02: [facility] 07/03 01:43 Order name: Type And Screen [facility] 07/03 02:35 Order name: Packed RBC Leukored [facility] 07/03 03:28 Order name: ABO/RH no charge; Complete Time: 03:31 [facility] 07/03 05:59 Order name: SARS-COV-2 RT PCR [facility] 07/03 01:43 Order name: EKG - Nurse/Tech; Complete Time: 01:51 [facility] 07/03 01:44 Order name: Saline Lock; Complete Time: 01:46 [facility] 07/03 02:10 Order name: Transfuse; Complete Time: 04:48 [facility] 07/03 02:14 Order name: CT Abd/Pelvis - Without Contrast [facility] 07/03 02:29 Order name: Chest Single View XRAY [facility] 07/03 07:32 Order name: EKG Electrocardiogram [facility] 07/03 07:32 Order name: EKG Electrocardiogram [facility] Administered Medications: 01:59 Drug: ProTONIX 80 mg Route: IVP; Site: right wrist; mg2 02:25 Follow up: Response: No adverse reaction jb4 05:17 Drug: ProTONIX 8 mg/hr Route: IV; Rate: 25 ml/hr; Site: right wrist; mg2 07:23 Follow up: IV Status: Infusion continued upon transfer bp Disposition: 07/03/20 06:04 Transfer ordered to [facility]. Diagnosis is Lower Gastrointestinal Bleeding. - Reason for transfer: Higher level of care. - Accepting physician is Dr. Bowling. - Condition is Serious. - Problem is new. - Symptoms have improved. Signatures: Dispatcher [employer] EDUT Javier Renteria, RN RN Braulio Guerra RN RN jb4 Tripp Zhao RN RN [facility] [place] Kendall Gifford MD MD 7 Jostin Ge RN bp Corrections: (The following items were deleted from the chart) 02:35 02:10 PACKED RBC LEUKORED -1+BB.LAB.BRZ ordered. EDMS EDMS 02:35 02:11 ABO/RH typing ordered. EDMS EDMS 02:35 02:11 Antibody Screen ordered. EDMS EDMS 05:59 04:57 CORONAVIRUS ordered. EDMS EDMS 07:57 06:04 07/03/2020 06:04 Transfer ordered to [facility]. Diagnosis is Lower em Gastrointestinal Bleeding. Reason for transfer: Higher level of care. Accepting physician is Dr. Bowling. Condition is Serious. Problem is new. Symptoms have improved. mh7
--- NOTE | 2020-07-03 06:05 | ER ---
Nurse's Notes [facility] Name: Jose David Rangel Age: 80 yrs Sex: Male : 1940 Arrival Date: 07/03/2020 Time: 01:25 Bed 4 Private MD: Stuart Clemens Diagnosis: Lower Gastrointestinal Bleeding Presentation: 07/03 01:25 Chief complaint: EMS states: PT reports bright bloody bowel movements for 1 week. Is jb4 currently taking Eliquis. Also reports vomiting and abdominal pain below the umbilicus that is 9/10. 01:25 Coronavirus screen: Client denies travel out of the [place] in the last 14 days. At this jb4 time, the client does not indicate any symptoms associated with coronavirus-19. Ebola Screen: No symptoms or risks identified at this time. Initial Sepsis Screen: Does the patient meet any 2 criteria? No. Patient's initial sepsis screen is negative. Does the patient have a suspected source of infection? No. Patient's initial sepsis screen is negative. Risk Assessment: Do you want to hurt yourself or someone else? Patient reports no desire to harm self or others. Onset of symptoms was July 03, 2020. Transition of care: patient was not received from another setting of care. 01:25 Method Of Arrival: EMS: [facility] 4 01:25 Acuity: ANALILIA 3 jb4 Historical: - Allergies: :25 Codeine; jb4 - Home Meds: 01:25 Aspirin Oral [Active]; Aspirin Oral [Active]; carvedilol Oral [Active]; Digoxin Oral jb4 [Active]; Eliquis Oral [Active]; Plavix Oral [Active]; pravastatin Oral [Active]; - PMHx: 01:25 Hyperlipidemia; Hypertension; Myocardial infarction; jb4 - PSHx: 01:25 CABG; Heart stents; Defibrillator; jb4 - Immunization history:: Adult Immunizations up to date. - Social history:: Smoking status: Patient denies any tobacco usage or history of. Patient/guardian denies using alcohol, street drugs. Screenin:00 Abuse screen: Denies threats or abuse. Denies injuries from another. Nutritional mg2 screening: No deficits noted. Tuberculosis screening: No symptoms or risk factors identified. Fall Risk IV access (20 points). Assessment: 02:00 General: Appears in no apparent distress. comfortable, Behavior is calm, cooperative. mg2 Pain: Complains of pain in abdomen. Neuro: Level of Consciousness is awake, alert, obeys commands, Oriented to person, place, time, situation. Cardiovascular: Capillary refill < 3 seconds Patient's skin is warm and dry. Respiratory: Airway is patent Respiratory effort is even, unlabored, Respiratory pattern is regular, symmetrical. GI: Rectal exam: Bleeding noted. : No signs and/or symptoms were reported regarding the genitourinary system. EENT: No signs and/or symptoms were reported regarding the EENT system. Derm: Skin is intact, is healthy with good turgor, Skin is normal, pale. Musculoskeletal: Circulation, motion, and sensation intact. Capillary refill < 3 seconds. 03:00 Reassessment: Patient appears in no apparent distress at this time. Patient and/or mg2 family updated on plan of care and expected duration. Pain level reassessed. 03:43 Reassessment: Patient appears in no apparent distress at this time. signed the [facility] informed consent for blood transfusion. 04:00 Reassessment: Patient appears in no apparent distress at this time. Patient and/or mg2 family updated on plan of care and expected duration. Pain level reassessed. 06:00 Reassessment: 2nd unit of PRBC infusing at this time. sg 06:19 Reassessment: Reassessment: patient has to be transferred to [facility]. mg2 06:31 Reassessment: report given to MINNA Moore of [facility] -ICU 7. mg2 06:34 Reassessment: [id number] (Lolly). mg2 07:00 Reassessment: RECD REPORT FROM YANNICK BUITRAGO. 80YO WM P/W RECTAL BLEEDING, TRANSFER IN bp PROCESS FOR CLEAR GUEVARA 2/2 GIB. 07:22 Reassessment: [facility] FOR TRANSPORT. bp Vital Signs: 01:25 BP 111 / 58; Pulse 74; Resp 16; Temp 98.0(TE); Pulse Ox 100% on R/A; Weight 72.57 kg jb4 (R); Height 5 ft. 4 in. (162.56 cm) (R); Pain 9/10; 02:00 BP 117 / 75; Pulse 71; Resp 18; Pulse Ox 100% on R/A; mg2 03:43 BP 105 / 53; Pulse 73; Resp 18; Pulse Ox 100% on R/A; mg2 04:45 BP 113 / 52; Pulse 72; Resp 18; Pulse Ox 100% on R/A; sg 05:30 BP 120 / 43; Pulse 73; Resp 18; Pulse Ox 100% on R/A; sg 06:02 BP 121 / 90; Pulse 72; Resp 18; Pulse Ox 100% on R/A; mg2 06:15 BP 123 / 73; Pulse 75; Resp 18; Temp 98.2; Pulse Ox 100% on R/A; sg 07:00 BP 127 / 61; Pulse 77; Resp 13; Temp 98.2; Pulse Ox 100% ; bp 01:25 Body Mass Index 27.46 (72.57 kg, 162.56 cm) jb4 ED Course: 01:25 Patient arrived in ED. jb4 01:25 Stuart Clemens DO is Private Physician. jb4 01:25 Arm band placed on right wrist. jb4 01:32 Kendall Gifford MD is Attending Physician. mh7 01:33 Triage completed. jb4 01:48 Braulio Brian, MINNA is Primary Nurse. jb4 01:59 No provider procedures requiring assistance completed. Maintain EMS IV. Site clean \T\ mg2 dry. Gauge \T\ site: 20 \T\ R wrist. 02:01 Patient has correct armband on for positive identification. mg2 02:05 Notified ED physician of a critical lab result(s). HGB 4.8, HCT 15.3 Dr Gifford notified.bb 02:27 Tripp Zhao, RN is Primary Nurse. mg2 02:43 CT Abd/Pelvis - Without Contrast In Process Unspecified. EDMS 02:54 Chest Single View XRAY In Process Unspecified. EDMS 03:16 Initiated transfer to [facility]. Spoke with Shari Cordero pt. diagnosis GI ar5 Bleed needing GI and ICU bed. 03:24 Inserted saline lock: 20 gauge in left hand, using aseptic technique. Blood collected. mg2 04:16 Dr. Gifford spoke with hospitalist \T\ [facility]. ar5 04:42 per Shari Cordero declined pt. [facility] and all other phelps do not have bed ar5 availability. 04:45 Initiated transfer to [facility] with Irene Snow. ar5 04:59 COVID 19 swab sent to lab per hospital policy, pt tolerated swab well. sg 05:10 Pt. declined \T\ [facility] due to bed availability per Desi Snow. ar5 05:12 Initiated transfer to [facility] spoke with Heather. ar5 05:15 Pt. declined \T\ [facility] due to bed availability per Heather. ar5 05:19 Initiated transfer to [facility] spoke with Hannah. ar5 05:52 Dr. Gifford spoke with Intisivist Dr. Bowling. ar5 06:13 Acceptance given by Hannah Granda. Accepting physician Dr. Bowling. Pt going to [facility] Clear ar5 [place] ICU 4C 4046. Call report [phone]. 06:20 [facility] will be here in 45 minutes to an hour. ar5 06:31 Patient transferred, IV remains in place. mg2 Administered Medications: 01:59 Drug: ProTONIX 80 mg Route: IVP; Site: right wrist; mg2 02:25 Follow up: Response: No adverse reaction jb4 05:17 Drug: ProTONIX 8 mg/hr Route: IV; Rate: 25 ml/hr; Site: right wrist; mg2 07:23 Follow up: IV Status: Infusion continued upon transfer bp Outcome: 06:04 ER care complete, transfer ordered by . [facility] 07:22 [facility] Transfer form bp completed. 07:22 Condition: stable 07:22 Instructed on the need for transfer. 07:57 Patient left the ED. em Signatures: Dispatcher [employer] Lj Mariscal RN RN sg Javier Renteria, RN RN em Jessica Booker RN RN Braulio Light RN RN jb4 Jostin Ge RN RN bp Tripp Zhao, MINNA BUITRAGO mg2 Apple Ferrara ar5 Kendall Gifford MD MD 7 Corrections: (The following items were deleted from the chart) 03:45 02:00 Derm: Skin is intact, is healthy with good turgor, Skin is pink, warm \T\ dry. mg2 normal, mg2 05:48 05:27 Initiated transfer to [facility]. Spoke with Shari Cordero pt. diagnosis ar5 GI Bleed needing GI and ICU bed ar5 06:12 05:57 Pt. declined \T\ [facility] due to bed availability per Heather ar5 ar5 06:20 06:19 Reassessment: mg2 mg2 07:21 07:00 BP 127 / 61; Pulse 77bpm; Resp 31bpm; Pulse Ox 100%; Temp 98.2F; bp bp
[2020-07-03 08:16] VITALS: O2SAT 100
[2020-07-03 08:24] VITALS: TEMP 98.2
[2020-07-03 08:25] VITALS: BP 127/61
--- NOTE | 2020-07-03 08:32 | RAD REPORT ---
EXAM DESCRIPTION: RAD - Chest Single View - 07/03/2020 2:54 am CLINICAL HISTORY: CONGESTION Chest pain. COMPARISON: Chest Single View dated 06/04/2020; Chest Pa And Lat (2 Views) dated 10/28/2017; CHEST SIN GLE VIEW dated 01/09/2010; CHEST PA AND LAT 2 VIEW dated 07/22/2005 FINDINGS: Portable technique limits examination quality. The lungs are grossly clear. The heart is significantly enlarged with changes of a prior CABG noted. Single lead pacer/defibrillator device is present.
--- NOTE | 2020-07-03 14:58 | RAD REPORT ---
EXAM DESCRIPTION: Abdomen Pelvis Wo Contrast CLINICAL HISTORY: ABD PAIN COMPARISON: None. TECHNIQUE: CT ABDOMEN PELVIS WITHOUT IV CONTRAST on 07/03/2020 2:14 AM CDT This exam was performed according to our departmental dose-optimization program, which includes autom ated exposure control, adjustment of the mA and/or kV according to patient size and/or use of iterati ve reconstruction technique. FINDINGS: The heart is enlarged. Abdomen: The liver is normal in appearance. There is no biliary dilatation. There are multiple gallst ones in the gallbladder. The pancreas and spleen are normal in appearance. There is a punctate mid po le right renal calculus without hydronephrosis. Adrenal glands are normal. There are several tiny cys ts in the left kidney along with a punctate lower pole calculus. Abdominal aorta is densely calcified without aneurysm. There is no free air. There is no retroperiton eal adenopathy. Pelvis: There is no bowel obstruction. Urinary bladder wall is thickened measuring 9 mm. There is no free fluid. Appendix is not clearly seen. Skeleton: There are no acute osseous findings. No suspicious bony lesions. IMPRESSION: Minimal bilateral nephrolithiasis without hydronephrosis. No definite acute inflammatory process. Electronically signed by: Thomas Sarabia MD 07/03/2020 2:57 AM CDT Due to temporary technical issues with the PACS/Fluency reporting system, reports are being signed by the in house radiologist without review as a courtesy to ensure prompt reporting. The interpreting r adiologist is fully responsible for the content of the report.
== END 2020-07-03 07:57 | disposition short-term general hospital (02) ==
LOC: ER 01:22
DX: K92.2 Gastrointestinal hemorrhage, unspecified (principal); Z88.6 Allergy status to analgesic agent; E78.5 Hyperlipidemia, unspecified; I10 Essential (primary) hypertension; I25.2 Old myocardial infarction; Z20.828 Contact with and (suspected) exposure to other viral communicable diseases
CPT/HCPCS: 96365; 93005 ×2; 85025; 80048; 36415; 86900; 86850; 85610; 86901; 80076; 85730; 84484; 74176; 71045; 99285; 96366; U0003; C9113 ×2; P9016 ×2; J7050 ×2

== ENCOUNTER 2021-06-18 11:06 | Emergency (ER) | payer OTHER, MEDICARE ==
--- OUTSIDE RECORDS SUMMARY | 2021-06-18 11:08 | XMS REPORT | Continuity of Care Document ---
:1940 Author Organization [facility] t Address [address] [place] [address] Care Team Providers Name Role Phone Sarath KELLEY, Jun Primary Care Physician Payers Payer Name Policy Type Policy Number Effective Date Expiration Date S ource Problems Condition Condition Condition Status Onset Resolution Last Treating Co mments Source Name Details Category Date Date Treatment Clinician Date Cardiomyop Cardiomyop Disease Active 2015-[address] [facility] 11[facility]20 [facility] Allergies, Adverse Reactions, Alerts Allergy Allergy Status Severity Reaction(s) Onset Inactive Treating Comm ents Source Name Type Date Date Clinician Gabriela Tai Active 2015-[address] [facility] ty to 2-07 cramps [facility] - adverse 00:00: [facility] reaction 00 Center s Social History Social Habit Start Date Stop Date Quantity Comments Source Sex Assigned At [facility] Alcohol intake 2016-09-20 2016-09-20 Current [facility] es - 00:00:00 00:00:00 non-drinker of Medical Ce nter alcohol (finding) Alcohol Comment 2016-09-19 2016-09-19 ocassional [facility] - 00:00:00 00:00:00 [facility] History of 1973-10-13 Current smoker [facility] es - tobacco use 00:00:00 [facility] Smoking Status Start Date Stop Date Source Former smoker 2016-09-20 00:00:00 2016-09-20 00:00:[address] [facility] Medications Ordered Filled Start Stop Current Ordering Indication Dosage Frequency Signature Comments Components Source Medication Medication Date Date Medication? Clinician (SIG) Name Name clopidogrel 2015-10 Yes 75mg QD Take [address] (PLAVIX) 75 2-09 by mouth [facility] - mg tablet 11:24: daily. Medica l [address] [place] digoxin 2015-10 Yes 125ug QD Take 125 [facility] (LANOXIN) 2-09 mcg by [facility] - 0.125 MG 11:24: mouth Medical tablet 20 daily. [place] carvedilol 2015-10 Yes 6.25mg Take 6.[address] (COREG) 2-09 mg by [facility] - 6.25 MG 11:24: mouth 2 Medical tablet 20 (two) Center times daily with breakfast and dinner. pravastatin 2015-10 Yes 80mg QD Take [address] (PRAVACHOL) 2-09 by [facility] - 80 MG 11:24: daily. Medical tablet [address] [place] sacubitril- 2015-10 Yes 1{tbl} Q.5D Take [address] valsartan 2-09 tablet by kes - (ENTRESTO) 11:24: mouth 2 Medi alexandra 24-26 mg 20 (two) Center Tab times daily. omeprazole 2015-10 Yes 20mg QD Take [address] (PRILOSEC) 2-09 by mouth [facility] - 20 MG 11:24: daily. Medical capsule [address] [place] aspirin 81 2015-10 Yes 81mg QD Take [address] MG EC 2-09 by mouth [facility] - tablet 11:24: daily. [address] Procedures This patient has no known procedures. Encounters Start End Encounter Admission Attending Care Care Encounter Source Date/Time Date/Time Type Type Clinicians Facility Department ID 2020-07-03 [facility] [id number] [facility] 00:00:00 Encounter [facility] Results This patient has no known results.
[2021-06-18] MEDS ORDERED: LIDOCAINE 1% 20 ML MDV ONE (12:56)
[2021-06-18] MEDS ORDERED: MORPHINE 4 MG/ML SYR ONE (13:11)
[2021-06-18] MEDS ORDERED: TETANUS & DIPHTHERIA TOX,ADULT 0.5 ML VIAL ONE (13:12)
[2021-06-18] MEDS ORDERED: ONDANSETRON 4 MG (ODT) TAB ONE (13:12)
[2021-06-18] MEDS ORDERED: BUPIVACAINE 0.5% PF 10 ML VIAL ONE (13:23)
--- NOTE | 2021-06-18 13:33 | RAD REPORT ---
EXAM DESCRIPTION: RAD - Hand Right 3 View - 06/18/2021 1:24 pm CLINICAL HISTORY: Laceration COMPARISON: No comparisons FINDINGS: Soft tissue swelling is present affecting the second through fourth fingers. No acute frac ture or foreign body is seen.
[2021-06-18] MEDS ORDERED: DERMABOND SKIN ADHESIVE TOP ONE ×2 (14:30→14:49)
--- NOTE | 2021-06-18 14:40 | ER ---
Nurse's Notes [facility] Name: Jose David Rangel Age: 81 yrs Sex: Male : 1940 Arrival Date: 06/18/2021 Time: 11:08 Bed 26 Private MD: Diagnosis: Laceration without foreign body of right middle finger without damage to nail;Laceration without foreign body of right ring finger without damage to nail Presentation: 06/18 11:33 Chief complaint: Patient states: Edger rolled over R hand 3rd, 4th, and 5th digits. 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 Bleeding controlled with napkin. Coronavirus screen: Vaccine status: Patient reports receiving the 1st dose of the Covid vaccine. At this time, the client does not indicate any symptoms associated with coronavirus-19. Ebola Screen: Patient denies travel to an Ebola-affected area in the 21 days before illness onset. Complicating Factors: There are no complicating factors for this patient. Initial Sepsis Screen: Does the patient meet any 2 criteria? No. Patient's initial sepsis screen is negative. Does the patient have a suspected source of infection? Yes: Skin breakdown/wound. Risk Assessment: Do you want to hurt yourself or someone else? Patient reports no desire to harm self or others. Onset of symptoms was June 18, 2021. 11:33 Method Of Arrival: Ambulatory ll1 11:33 Acuity: ANALILIA 3 ll1 Historical: - Allergies: 11:35 Codeine; ll1 - PMHx: 11:35 Hyperlipidemia; Hypertension; Myocardial infarction; ll1 - PSHx: 11:35 colonscopy; ll1 - Immunization history:: Client reports receiving the Chon \T\ Chon single-dose vaccine. Last tetanus immunization: unknown, Flu vaccine is up to date. - Social history:: Smoking status: Patient denies any tobacco usage or history of. Screenin:20 Abuse screen: Denies threats or abuse. Denies injuries from another. Nutritional ld1 screening: No deficits noted. Tuberculosis screening: No symptoms or risk factors identified. Fall Risk None identified. Assessment: 12:20 General: Appears in no apparent distress. comfortable, Behavior is calm, cooperative, ld1 appropriate for age. 12:20 Pain: Complains of pain in right hand Pain does not radiate. Pain currently is 8 out of ld1 10 on a pain scale. Quality of pain is described as stabbing, Pain began 4 hours ago. Is continuous. Neuro: Level of Consciousness is awake, alert, obeys commands, Oriented to person, place, time, situation, Appropriate for age. Cardiovascular: Capillary refill < 3 seconds Patient's skin is warm and dry. Respiratory: Airway is patent Respiratory effort is even, unlabored, Respiratory pattern is regular, symmetrical. GI: Abdomen is flat, non-distended. : No signs and/or symptoms were reported regarding the genitourinary system. EENT: No signs and/or symptoms were reported regarding the EENT system. Derm: No signs and/or symptoms reported regarding the dermatologic system. Musculoskeletal: No signs and/or symptoms reported regarding the musculoskeletal system. Injury Description: Laceration sustained to right hand is clean, bleeding moderately. Vital Signs: 11:33 Resp 16; Temp 97.9; Weight 74.84 kg; Height 5 ft. 4 in. (162.56 cm); Pain 8/10; ll1 11:37 BP 147 / 63; ll1 11:39 Pulse Ox 97% ; ll1 12:20 BP 152 / 71; Pulse 69; Resp 18; Pulse Ox 97% on R/A; ld1 14:08 BP 154 / 74; Pulse 67; Resp 18; Pulse Ox 97% on R/A; ld1 11:33 Body Mass Index 28.32 (74.84 kg, 162.56 cm) ll1 ED Course: 11:08 Patient arrived in ED. as 11:35 Triage completed. ll1 11:36 Arm band placed on. ll1 12:20 Patient has correct armband on for positive identification. Bed in low position. Call ld1 light in reach. Side rails up X2. Pulse ox on. NIBP on. Door closed. Noise minimized. Warm blanket given. 12:20 Assist provider with laceration repair on right hand using sutures. Set up tray. ld1 Performed by Tomas Apodaca NP Patient tolerated well. 12:36 Tomas Apodaca NP is PHCP. pm1 12:36 Everton Guy MD is Attending Physician. pm1 13:24 Hand Right 3 View XRAY In Process Unspecified. EDMS 14:32 Erendira Strickland RN is Primary Nurse. ld1 14:39 Tarun Celis MD is Referral Physician. pm1 15:03 Patient did not have IV access during this emergency room visit. ld1 Administered Medications: 12:59 Drug: Tetanus-Diphtheria Toxoid Adult 0.5 ml {Personal Development Mentor: [employer]. Exp: ld1 03/18/2022. Lot #: [id number]. } Route: IM; Site: left deltoid; 13:01 Follow up: Response: No adverse reaction ld1 13:01 Drug: morphine 4 mg Route: IM; Site: right deltoid; ld1 13:01 Follow up: Response: No adverse reaction ld1 13:01 Drug: Ondansetron 4 mg Route: PO; ld1 13:01 Follow up: Response: No adverse reaction ld1 14:30 Drug: Lidocaine (1 %) 5 ml {Note: by PA. Braulio} Volume: 5 ml; Route: ld1 Infiltration; 14:30 Drug: Marcaine (bupivacaine) (0.25 %) 5 ml {Note: by PA. Braulio} Route: ld1 Infiltration; Outcome: 14:40 Discharge ordered by MD. pm1 15:03 Discharged to home via wheelchair, with family. ld1 15:03 Condition: stable 15:03 Discharge instructions given to patient, Instructed on discharge instructions, follow up and referral plans. medication usage, Demonstrated understanding of instructions, follow-up care, medications. 15:03 Patient left the ED. ld1 Signatures: Dispatcher [employer] EDMS Zhanna Valdez Patrick, NP CHIEF SUBSTATION OPERATOR pm1 Yashira Steele RN RN 1 Erendira Strickland RN RN ld1 Corrections: (The following items were deleted from the chart) 11:36 11:35 PSHx: None; ll1 ll1
--- NOTE | 2021-06-18 14:40 | EDPHYS ---
Physician Documentation [facility] Name: Jose David Rangel Age: 81 yrs Sex: Male : 1940 Arrival Date: 06/18/2021 Time: 11:08 Bed 26 Private MD: ED Physician Everton Guy HPI: 06/18 12:41 This 81 yrs old Male presents to ER via Ambulatory with complaints of pm1 Laceration - fingers. 12:41 The patient or guardian reports a laceration. The complaints affect the right little pm1 finger, right ring finger and right middle finger. Context: The problem was sustained at home, outdoors, resulted from Laceration from edger. Onset: The symptoms/episode began/occurred just prior to arrival. Modifying factors: The symptoms are alleviated by pressure to area. Associated signs and symptoms: Pertinent negatives: cyanosis distally, decreased sensation distally, numbness distally, tingling distally. Severity of symptoms: in the emergency department the symptoms have improved. The patient has not experienced similar symptoms in the past. The patient has not recently seen a physician. Patient was edging the lawn. He taped the safety to have it run continuously. He bent down to remove a weed with his right hand while the edger was behind him, and the edger came up behind him and cut his right hand. Historical: - Allergies: 11:35 Codeine; ll1 - PMHx: 11:35 Hyperlipidemia; Hypertension; Myocardial infarction; ll1 - PSHx: 11:35 colonscopy; ll1 - Immunization history:: Client reports receiving the Chon \T\ Chon single-dose vaccine. Last tetanus immunization: unknown, Flu vaccine is up to date. - Social history:: Smoking status: Patient denies any tobacco usage or history of. ROS: 12:41 Constitutional: Negative for fever, chills, and weight loss, Cardiovascular: Negative pm1 for chest pain, palpitations, and edema, Respiratory: Negative for shortness of breath, cough, wheezing, and pleuritic chest pain, Abdomen/GI: Negative for abdominal pain, nausea, vomiting, diarrhea, and constipation. 12:41 MS/extremity: Positive for laceration, of the right middle finger and right ring finger and right little finger, Negative for decreased range of motion, deformity. 12:41 Skin: Positive for laceration(s), of the right middle finger and right ring finger and right little finger. 12:41 Neuro: Negative for numbness, tingling, weakness. 12:41 All other systems are negative. Exam: 12:41 Constitutional: This is a well developed, well nourished patient who is awake, alert, pm1 and in no acute distress. Head/Face: Normocephalic, atraumatic. 12:41 Cardiovascular: Exam negative for acute changes, Rate: normal, Rhythm: regular, Pulses: no pulse deficits are appreciated. 12:41 Respiratory: Exam negative for acute changes, respiratory distress, shortness of breath. 12:41 Musculoskeletal/extremity: Extremities: grossly normal except: Laceration to right hand. 12:41 Skin: Appearance: normal except for affected area, injury, laceration(s), that can be pm1 described as 1.5 cm linear laceration to right middle finger distal palmar aspect. 2 cm irregularly shaped laceration to right ring finger distal palmar aspect. 1 cm superficial abrasion present to palmar aspect distal right pinky finger. 12:41 Neuro: Exam negative for acute changes, Orientation: is normal, Mentation: is normal, Motor: moves all fours, Full range of motion intact to right hand and fingers. Vital Signs: 11:33 Resp 16; Temp 97.9; Weight 74.84 kg; Height 5 ft. 4 in. (162.56 cm); Pain 8/10; ll1 11:37 BP 147 / 63; ll1 11:39 Pulse Ox 97% ; ll1 12:20 BP 152 / 71; Pulse 69; Resp 18; Pulse Ox 97% on R/A; ld1 14:08 BP 154 / 74; Pulse 67; Resp 18; Pulse Ox 97% on R/A; ld1 11:33 Body Mass Index 28.32 (74.84 kg, 162.56 cm) ll1 Laceration: 14:34 Wound Repair of 1.5cm ( 0.6in ) subcutaneous laceration to palmar aspect of distal pm1 phalanx of right middle finger. Linear shaped.. Distal neuro/vascular/tendon intact. Anesthesia: Digital block administered with 2 mls of Lido/Marcaine. Wound prep: Extensive cleansing with betadine with hibiclenz by me, Wound irrigation with saline by me, Wound explored extensively, Copious irrigation. Skin closed with 4 4-0 Prolene using simple sutures and sterile technique. Dressed with 4x4's. Patient tolerated well. 14:34 Wound Repair of 2cm ( 0.8in ) subcutaneous laceration to palmar aspect of distal pm1 phalanx of right ring finger. Irregularly shaped.. Distal neuro/vascular/tendon intact. Anesthesia: Local anesthetic administered with 2 mls of Lido/Marcaine. Wound prep: Extensive cleansing with betadine with hibiclenz by me, Wound irrigation with saline by me, Wound explored extensively, Copious irrigation. Skin closed with 6 4-0 Prolene using simple sutures and sterile technique. Dressed with 4x4's. Patient tolerated well. MDM: 12:36 Patient medically screened. pm1 14:38 Data reviewed: vital signs. Data interpreted: Pulse oximetry: on room air is 97 %. pm1 Interpretation: normal. Counseling: I had a detailed discussion with the patient and/or guardian regarding: the historical points, exam findings, and any diagnostic results supporting the discharge/admit diagnosis, radiology results, the need for outpatient follow up, a hand specialist, to return to the emergency department if symptoms worsen or persist or if there are any questions or concerns that arise at home. 06/18 12:41 Order name: Hand Right 3 View XRAY; Complete Time: 14:34 pm1 06/18 12:42 Order name: Dressing - Wound; Complete Time: 15:02 pm1 06/18 12:42 Order name: Gloves, Sterile; Complete Time: 13:01 pm1 06/18 12:42 Order name: Prolene, Sutures; Complete Time: 13:01 pm1 06/18 12:42 Order name: Setup Suture Tray; Complete Time: 13:01 pm1 Administered Medications: 12:59 Drug: Tetanus-Diphtheria Toxoid Adult 0.5 ml {[employer]: [employer]. Exp: ld1 03/18/2022. Lot #: [id number]. } Route: IM; Site: left deltoid; 13:01 Follow up: Response: No adverse reaction ld1 13:01 Drug: morphine 4 mg Route: IM; Site: right deltoid; ld1 13:01 Follow up: Response: No adverse reaction ld1 13:01 Drug: Ondansetron 4 mg Route: PO; ld1 13:01 Follow up: Response: No adverse reaction ld1 14:30 Drug: Lidocaine (1 %) 5 ml {Note: by PA. Braulio} Volume: 5 ml; Route: ld1 Infiltration; 14:30 Drug: Marcaine (bupivacaine) (0.25 %) 5 ml {Note: by PA. Braulio} Route: ld1 Infiltration; Disposition: 15:12 Co-signature as Attending Physician, Everton Guy MD I agree with the assessment and libra plan of care. Disposition Summary: 06/18/21 14:40 Discharge Ordered Location: Home pm1 Problem: new pm1 Symptoms: have improved pm1 Condition: Stable pm1 Diagnosis - Laceration without foreign body of right middle finger without damage to nail pm1 - Laceration without foreign body of right ring finger without damage to nail pm1 Followup: pm1 - With: Emergency Department - When: As needed - Reason: Worsening of condition Followup: pm1 - With: Tarun Celis MD - When: 2 - 3 days - Reason: Recheck today's complaints, Continuance of care, Re-evaluation by your physician Discharge Instructions: - Discharge Summary Sheet pm1 - Laceration Care, Adult pm1 Forms: - Medication Reconciliation Form pm1 - Thank You Letter pm1 - Antibiotic Education pm1 - Prescription Opioid Use pm1 Prescriptions: - Cephalexin 500 mg Oral Capsule - take 1 capsule by ORAL route every 8 hours for 10 days; 30 capsule; Refills: 0, pm1 Product Selection Permitted Signatures: Dispatcher [employer] Everton Almanza MD MD cha Marinas, Patrick, MAYE CASE FITTER pm1 Yashira Steele RN RN ll1 Erendira Strickland RN RN ld1 Corrections: (The following items were deleted from the chart) 11:36 11:35 PSHx: None; ll1 ll1
[2021-06-18 15:10] VITALS: TEMP 97.9
[2021-06-18 15:11] VITALS: O2SAT 97
[2021-06-18 15:14] VITALS: BP 154/74
== END 2021-06-18 15:03 | disposition home or self-care (01) ==
LOC: ER 11:06
PROC: 0JQJ0ZZ Repair Right Hand Subcutaneous Tissue and Fascia, Open Approach (ICD-10-PCS; principal; 2021-06-18)
DX: S61.212A Laceration without foreign body of right middle finger without damage to nail, initial encounter (principal); S61.214A Laceration without foreign body of right ring finger without damage to nail, initial encounter; W29.3XXA Contact with powered garden and outdoor hand tools and machinery, initial encounter; Y93.89 Activity, other specified; Z23 Encounter for immunization; Z88.5 Allergy status to narcotic agent; I10 Essential (primary) hypertension
CPT/HCPCS: 90471; 90714; 96372; 99284

== ENCOUNTER 2022-04-01 14:57 | Emergency (ER) | payer OTHER, MEDICARE ==
--- OUTSIDE RECORDS SUMMARY | 2022-04-01 15:03 | XMS REPORT | Continuity of Care Document ---
:1940 Author Organization [facility] t Address [address] [place] [address] Care Team Providers Name Role Phone Jun Clemens MD Primary Care Physician Papi Attending Clinician Unavailable CARLINE Attending Clinician Unavailable Doctor Unassigned, Name Attending Clinician Unavailable Homar BUITRAGO Attending Clinician Unavailable Seema KELLEY Attending Clinician Иван Shirley MD Attending Clinician Carline KELLEY Attending Clinician CARYN Attending Clinician Unavailable SEEMA Admitting Clinician Unavailable Seema KELLEY Admitting Clinician CARYN Admitting Clinician Unavailable Payers Payer Name Policy Type Policy Number Effective Date Expiration Date S sammy MEDICARE PART A \\T\\ [id number] 2001 B 00:00:00 [facility] [id number] 2019 MEDICARE SUPPLEMENT 00:00:00 [place]ICARE B-[place]: [id number] 2001 [employer] 00:00:00 [facility] [id number] 2006 OPTION - PLAN E 00:00:00 (MEDICARE SUPPLEMENT) Problems Condition Condition Condition Status Onset Resolution Last Treating Co mments Source Name Details Category Date Date Treatment Clinician Date Gastric Gastric Disease Active Univers bleeding bleeding 07-03 ity of 00:00: [place] 00 Medical Branch GI bleed GI bleed Disease Active Unive rs 9 ity of 00:00: [place] 00 Medical Branch Cardiomyop Cardiomyop Disease Active 2015-[address] [facility] Allergies, Adverse Reactions, Alerts Allergy Allergy Status Severity Reaction(s) Onset Inactive Treating Comm ents Source Name Type Date Date Clinician CODEINE DRUG Active Other-Cmnt 2015-10 Unive rs INGREDI 2- ity of 00:00: [place] 00 Medical Branch Codeine Propensi Active Other - See 2015-10 Stomach U nivers ty to comments 11-19 cramps ity of adverse 00:00: [place] reaction 00 Medical s Branch CODEINE Allergy Active 2015-[address] [facility] Social History Social Habit Start Date Stop Date Quantity Comments Source Sex Assigned [facility] [place] [facility] Tobacco use and 2020-07-05 2020-07-05 Current user Univers ity of exposure 00:00:00 00:00:00 [place] [facility] History SDOH 2020-07-03 2020-07-03 2 University o f Transport Non-Med 00:00:00 00:00:00 [place] [facility] Tobacco Comment 2020-07-03 2020-07-03 Quit smoking Univers ity of 00:00:00 00:00:00 1973, current [place] Medic al daily chewing Branch tobacco user History SDMI 2020-07-03 2020-07-03 21 University o f Education 00:00:00 00:00:00 [place] [facility] History SDOH 2020-07-03 2020-07-03 5 University o f Financial 00:00:00 00:00:00 [place] [facility] History SDMI Food 2020-07-03 2020-07-03 1 Univers ity of Worry 00:00:00 00:00:00 [place] [facility] History SDMI Food 2020-07-03 2020-07-03 1 Univers ity of Scarcity 00:00:00 00:00:00 [place] [facility] History SDOH 2020-07-03 2020-07-03 2 University o f Transport Med 00:00:00 00:00:00 [place] [facility] Alcohol intake 2016-09-20 2016-09-[address] [facility] 00:[facility] 00:00:00 non-drinker of Medical Ce nter alcohol (finding) Alcohol Comment 2016-09-19 2016-09-[address] [facility] 00:[facility]00 00[facility]00[facility]00 Medical Center History of 1973-10-[address] [address] [facility] Status Start Date Stop Date Source Former smoker 2020-07-05 00:00:00 2020-07-05 00:00:00 [facility] Medical Branch Medications Ordered Filled Start Stop Current Ordering Indication Dosage Frequency Signature Comments Components Source Medication Medication Date Date Medication? Clinician (SIG) Name Name digoxin 125 2020-0 Yes 125ug Take 125 U nivers mcg (0.125 9-23 mcg by ity of mg) tablet 22:53: mouth [place] [address] daily. Medical Branch carvediloL 2020-0 Yes 25mg Take 25 mg U nivers 6.25 mg 9-23 by mouth 2 ity of tablet 22:53: (two) [place] [address] times Medical daily with Branch meals. omeprazole 2020-0 Yes 20mg Take 20 mg U nivers 20 mg 9-23 by mouth ity of capsule 22:53: daily. [address] Branch pravastatin 2020-0 Yes 80mg Take 80 mg Univers 80 mg 9-23 by mouth ity of tablet 22:53: at [place] [address] bedtime. Medical Branch furosemide 2020-0 Yes 40mg Take 40 mg U nivers (LASIX) 40 9-23 by mouth ity o f mg tablet 22:53: daily. [place] [address] Medical Branch digoxin 125 2020-0 Yes 125ug Take 125 U nivers mcg (0.125 9-23 mcg by ity of mg) tablet 22:53: mouth [place] 13 daily. Medical Branch carvediloL 2020-0 Yes 25mg Take 25 mg U nivers 6.25 mg 9-23 by mouth 2 ity of tablet 22:53: (two) [place] [address] times Medical daily with Branch meals. omeprazole 2020-0 Yes 20mg Take 20 mg U nivers 20 mg 9-23 by mouth ity of capsule 22:53: daily. [address] Branch pravastatin 2020-0 Yes 80mg Take 80 mg Univers 80 mg 9-23 by mouth ity of tablet 22:53: at [place] [address] bedtime. Medical Branch furosemide 2020-0 Yes 40mg Take 40 mg U nivers (LASIX) 40 9-23 by mouth ity o f mg tablet 22:53: daily. [place] [address] Medical Branch digoxin 125 2020-0 Yes 125ug Take 125 U nivers mcg (0.125 9-23 mcg by ity of mg) tablet 22:53: mouth [place] 13 daily. Medical Branch carvediloL 2020-0 Yes 25mg Take 25 mg U nivers 6.25 mg 9-23 by mouth 2 ity of tablet 22:53: (two) [place] [address] times Medical daily with Branch meals. omeprazole 2020-0 Yes 20mg Take 20 mg U nivers 20 mg 9-23 by mouth ity of capsule 22:53: daily. [address] Branch pravastatin 2020-0 Yes 80mg Take 80 mg Univers 80 mg -23 by mouth ity of tablet 22:53: at [place] [address] bedtime. Medical Branch furosemide 2020-0 Yes 40mg Take 40 mg U nivers (LASIX) 40 9-23 by mouth ity o f mg tablet 22:53: daily. [address] Branch aspirin 81 2020-0 2020- No 81mg Take 81 mg Univers mg EC -07-05 by mouth ity of tablet 17:07: 00:00 daily. [place] 27 :00 [facility] Branch apixaban 5 2020-0 2020- No 5mg Take 5 mg U nivers mg tablet 07-05 by mouth 2 ity of 17:07: 00:00 (two) [place] 27 :00 times Medical daily. Branch apixaban 5 2020-0 Yes 1358 5mg Take 1 Unive rs mg tablet - tablet by ity o f 00:00: mouth 2 [place] 00 (two) Medical [facility] daily. Resume in 3 days Indication s: atrial fibrillati on aspirin 81 2020-0 Yes 81mg Take 1 Unive rs mg EC 9-23 tablet by ity of tablet 00:00: mouth [place] 00 daily. Medical Resume in Branch 3 days apixaban 5 2020-0 Yes 1358 5mg Take 1 Unive rs mg tablet 9-23 tablet by ity o f 00:00: mouth 2 [place] 00 (two) Medical times [place] daily. Resume in 3 days Indication s: atrial fibrillati on aspirin 81 2020-0 Yes 81mg Take 1 Unive rs mg EC 9-23 tablet by ity of tablet 00:00: mouth [place] 00 daily. Medical Resume in Branch 3 days apixaban 5 2020-0 Yes 1358 5mg Take 1 Unive rs mg tablet 9-23 tablet by ity o f 00:00: mouth 2 [place] 00 (two) Medical times Branch daily. Resume in 3 days Indication s: atrial fibrillati on aspirin 81 2020-0 Yes 81mg Take 1 Unive rs mg EC 9-23 tablet by ity of tablet 00:00: mouth 00 daily. Medical Resume in Branch 3 days simethicone 2020-0 Yes PRN, Univer s (GAS RELIEF 07-04 Starting ity of (SIMETHICON 15:08: Tue [place] E)) 40 00 07/04/20 at Medical mg/0.6 mL 1008, Branch drops Until Discontinu ed, Routine, Intra-op phytonadion 2019-0 2020- No 10mg 10 mg, IV Univers e (VITAMIN 07-04 Piggyback, it y of K) 10 mg in 03:17: 04:42 ONCE, 1 [place] NaCl 0.9% 00 :00 dose, Mon Medic al (NS) 07/03/20 at Branch piggyback 2230, 50 mL pravastatin 2020-0 Yes 40mg 40 mg, [facility] [place] [facility] ers (PRAVACHOL) 07-04 Oral, QHS, it y of tablet 40 02:00: First dose [place] mg 00 on [facility] Medical 07/03/20 at Branch 2100, Until Discontinu ed, Routine peg-electro 2019-0 2020- No 4000mL 4,000 mL, Univers lyte soln 07-03 Oral, ity of (GOLYTELY) 21:00: 22:17 ONCE, 1 [place] as 236-22.74-6 00 :00 dose, Mon Med ical .74 -5.86 07/03/20 at Bran ch gram 1600, solution Routine 4,000 mL NaCl 0.9% 2019-0 2020- No 1000mL at 75 Univ ers (NS) IV 07-03 mL/hr, IV ity of infusion 21:00: 20:05 Infusion, [place] as 1,000 mL 00 :00 ONCE, 1 Medical dose, [facility] 07/03/20 at 1600, Routine pantoprazol 2019-0 2020- No 40mg 40 mg, IV Univers e 9-21 09-22 Piggyback, ity of (PROTONIX) 15:45: 19:09 Q12H, [place] 40 mg in 00 :12 First dose Medic al NaCl 0.9% on Fri Branch (NS) 100 mL 07/03/20 at MINI-BAG 1045, Until Discontinu ed, 100 mL glucagon 2020-0 Yes 1mg 1 mg, Univers (GLUCAGEN 07-03 Intramuscu ity of DIAGNOSTIC 15:25: lar, PRN, [place] KIT) 16 Starting Medical injection 1 Mon Branch mg 07/03/20 at 1025, Until Discontinu ed, AMITA, Blood Glucose < or = 70 mg/dL and patient is unable to swallow or has mental changes. dextrose 50 2020-0 Yes 25mL 25 mL, Univ ers % in water 07-03 Slow IV ity of (D50W) 15:25: Push, PRN, [place] injection 16 Starting Medica l 25 mL Mon Branch 07/03/20 at 1025, Until Discontinu ed, AMITA, Blood Glucose < or = 70 mg/dL and patient is unable to swallow or has mental status changes. clopidogrel 2015-10 Yes 75mg QD Take [address] (PLAVIX) 75 2-09 by mouth Luke s mg tablet 11:24: daily. Medica l 20 [place] digoxin 2015-10 Yes 125ug QD Take 125 [facility] (LANOXIN) 2-09 mcg by [facility]ukes 0.125 MG 11:24: mouth Medical tablet 20 daily. [place] carvedilol 2015-10 Yes 6.25mg Take 6.[address] (COREG) 2-09 mg by [facility]ukes 6.25 MG 11:24: mouth 2 Medical tablet 20 (two) Center times daily with breakfast and dinner. pravastatin 2015-10 Yes 80mg QD Take [address] (PRAVACHOL) 2-09 by mouth Luke s 80 MG 11:24: daily. Medical tablet 20 [place] sacubitril- 2015-10 Yes 1{tbl} Q.5D Take [address] valsartan 2-09 tablet by [facility]ukes (ENTRESTO) 11:24: mouth 2 Medi alexandra 24-26 mg 20 (two) Center Tab times daily. omeprazole 2015-10 Yes 20mg QD Take [address] (PRILOSEC) 2-09 by mouth [facility] 20 MG 11:24: daily. [address] aspirin 81 2015-10 Yes 81mg QD Take [address] MG EC 11-21 by mouth [facility] tablet 11:24: daily. [address] Vital Signs Vital Name Observation Time Observation Value Comments Source Respiratory rate 2020-07-05 16:47:00 19 /min [facility] Oxygen saturation in 2020-07-05 16:47:00 97 /min [facility] Arterial blood by [facility] Pulse oximetry Branch Systolic blood 2020-07-05 16:47:00 134 mm[Hg] [facility] [place] [facility] pressure [facility] Diastolic blood 2020-07-05 16:47:00 55 mm[Hg] [facility] [place] [facility] 2020-07-05 16:47:00 83 /min [facility] Body temperature 2020-07-05 16:47:00 36.44 [facility] Body weight 2020-07-04 17:00:00 67.4 kg [facility] BMI 2020-07-04 17:00:00 25.51 kg/m2 [facility] Body height 2020-07-03 15:30:00 162.6 cm [facility] Procedures Procedure Date / Time Performing Source Performed Clinician EXTERNAL PROVIDER RECORDS 2020-07-12 Doctor [facility] of 05:01:00 Unassigned, No [facility] CBC WITHOUT DIFF 2020-07-05 [facility] 10:00:00 [facility] [place] CBC WITHOUT DIFF 2020-07-04 [facility] 20:21:00 [facility] [place] COLONOSCOPY (ENDO) 2020-07-04 [facility] 15:50:27 [facility] ESOPHAGOGASTRODUODENOSCOPY 2020-07-04 Grzegorz Tony [facility] [place] [facility] ersity of 15:30:00 [facility] COLONOSCOPY 2020-07-04 Grzegorz [facility] 15:30:00 [facility] EGD (ENDO) 2020[facility]07[facility] 15:04:07 [facility] TRANSFUSE PACKED RBC 2020-07-04 [facility] 12:08:47 Emran [facility] MAGNESIUM 2020-07-04 [facility] 11:04:00 [facility] [place] [facility] BASIC METABOLIC PANEL (NA, K, CL, 2020-07-04 [facility] CO2, GLUCOSE, BUN, CREATININE, CA) 11:04:00 [facility] [place] [facility] CBC WITHOUT DIFF 2020-07-04 [facility] 11:04:00 [facility] [place] PREPARE PACKED RBC 2020-07-04 [facility] 07:46:55 [facility] [place] [facility] TRANSFUSE PACKED RBC 2020-07-04 [facility] 06:45:13 [facility] [place] [facility] CBC WITHOUT DIFF 2020-07-04 [facility] 03:02:00 [facility] [place] CBC WITHOUT DIFF 2020-07-03 [facility] 20:06:00 [facility] [place] LACTIC ACID WHOLE BLOOD 2020-07-03 [facility] ty of 17:22:00 [facility] [place] ABORH CONFIRMATION 2020-07-03 Se[facility] [place] 16:11:00 [facility] HB ABO GROUPING 2020-07-03 [facility] 16:00:00 [facility] [place] XR CHEST 1 VW 2020-07-03 [facility] 15:43:46 [facility] [place] LACTIC ACID WHOLE BLOOD 2020-07-03 [facility] of 14:50:00 [facility] [place] PHOSPHORUS 2020-07-03 [facility] 14:49:00 [facility] [place] MAGNESIUM 2020-07-03 [facility] 14:49:00 [facility] [place] COMP. METABOLIC PANEL (64676) 2020-07-03 Oatestripp Shirley iversity of 14:49:00 [facility] [place] CBC WITH DIFF 2020-07-03 [facility] of 14:49:00 [facility] [place] PROTHROMBIN TIME / INR 2020-07-03 [facility] 14:49:00 [facility] [place] ACTIVATED PARTIAL THRMPLAS LISBETH 2020-07-03 Oates randi U niversity of 14:49:00 [facility] [place] FIBRINOGEN 2020-07-03 [facility] of 14:49:00 [facility] [place] MRSA / MSSA SCREEN BY PCR, ANGELITO 2020-07-03 Oates [facility] of 14:49:00 [facility] [place] EXTERNAL CORONAVIRUS COVID-19 2020-07-03 Doctor Un iversity of 11:54:00 Unassigned, No [facility] Encounters Start End Encounter Admission Attending Care Care Encounter Source Date/Time Date/Time Type Type Clinicians Facility Department ID 2022-03-29 Outpatient MEAGAN Turpin [facility] [id number] Common 08:22:02 Dorie [facility] 2021-12-31 Outpatient MEAGAN Turpin [facility] [id number] Common 07:56:00 Dorie [address] [facility] 2020-07-03 Inpatient U CARLINE NYTRA CALDERON [id number] Univers 09:17:00 GILBERTO rushing of [facility] 2020-07-03 [facility] [id number] [facility] 00:00:00 Encounter [facility] 2021-12-31 2021-12-31 ambulatory [facility] [id number] Common 00:00:00 00:00:00 [facility] 2020-07-12 2020-07-12 Orders Doctor MERVAT [id number] Univers 00:00:00 00:00:00 Only Unassigned, DEYANIRA [id number] ity of [place] [facility] [id number] Darius as [phone] [facility] 009 Branch 2020-07-06 2020-07-06 Transition Heather Graf [id number] Univers 00:00:00 00:00:00 of Care Blanca Matos [id number] it y of [place] 4[place].2.686 [place] [id number] [facility] 403 Branch 2020-07-03 2020-07-05 Hospital Abe Bowling [facility] [id number] Univers 09:17:00 15:50:00 Encounter Jelani Castañeda [facility] [id number] .10 ity of Gilberto Crow[place] [id number] [place] [phone] [facility] 113 Branch ([facility]) 2016-09-03 2016-09-03 Outpatient CANNMEDARDO_J [facility] [id number] [place] 03:16:00 03:16:00 918 [facility] Results Test Description Test Time Test Comments Results Result Comments Source CBC WITHOUT DIFF 2020-07-05 10:47:00 Test Item Value Reference Range Interpretation Comme nts WBC (test code = 6690-2) See_Comment [A utomated message] The system which generated this result transmitted ref erence range: 4.20 - 10.70 10 *3/?L. The reference range was not used to interpret this result as normal/abnormal . RBC (test code = 789-8) See_Comment L [Au tomated message] The system which generated this result transmitted ref erence range: 4.26 - 5.52 10* 6/?L. The reference range was not used to interpret this result as normal/abnormal . HGB (test code = 718-7) 8.3 g/dL 12.2-16.4 L HCT (test code = 4544-3) 26.4 % 38.4-49.3 L MCH (test code = 785-6) 27.9 pg 26.1-32.7 MCV (test code = 787-2) 88.9 fL 81.7-95.6 MCHC (test code = 786-4) 31.4 g/dL 31.2-35 PLT (test code = 777-3) See_Comment L [Au tomated message] The system which generated this result transmitted ref erence range: 150 - 328 10*3/ ?L. The reference range was not used to interpret this result as normal/abnormal . MPV (test code = 80716-6) 11.8 fL 9.8-13 RDW-CV (test code = 788-0) 16.2 % 12.1-15.4 H RDW-SD (test code = 27200-6) 52.5 fL 38.5-51.6 H NRBC x10^3 (test code = See_Comment [Au tomated message] The system [id number]) which generated this result transmitted ref erence range: 10*3/?L. The re ference range was not used to interpret this result as kirill l/abnormal. NRBC/100 WBC (test code = See_Comment [ Automated message] The system [id number]) which generated this result transmitted ref erence range: 0.0 - 10.0 /100 WBCs. The reference range was not used to interpret this result as normal/abnormal . IPF % (test code = 3475996023) 8.5 % 1.2-10.7 Platelet count measured by fluorescence me thod. Lab Interpretation (test code Abnormal = 03513-2) [facility] WITHOUT [id number] 20:37:00 Test Item Value Reference Range Interpretation Comments WBC (test code = See_Comment [Automated message] 6690-2) The system [employer] generated this result transmitted ref erence range: 4.20 - 1 0.70 10*3/?L. The reference range was not used to int erpret this result as normal/abnormal . RBC (test code = 789-8) See_Comment L [Au tomated message] The system [employer] generated this result transmitted ref erence range: 4.26 - 5 .52 10*6/?L. The reference range was not used to int erpret this result as normal/abnormal . HGB (test code = 718-7) 8.7 g/dL 12.2-16.4 L HCT (test code = 27.5 % 38.4-49.3 L 4544-3) MCH (test code = 785-6) 29.1 pg 26.1-32.7 MCV (test code = 787-2) 92.0 fL 81.7-95.6 MCHC (test code = 31.6 g/dL 31.2-35 786-4) PLT (test code = 777-3) See_Comment L [Au tomated message] The system [employer] generated this result transmitted ref erence range: 150 - 32 8 10*3/?L. The reference range was not used to int erpret this result as normal/abnormal . MPV (test code = 11.8 fL 9.8-13 08397-1) RDW-CV (test code = 16.2 % 12.1-15.4 H 788-0) RDW-SD (test code = 53.8 fL 38.5-51.6 H 06989-5) NRBC x10^3 (test code = See_Comment [Au tomated message] [id number]) The system [employer] generated this result transmitted ref erence range: 10*3/?L. The reference range was not used to int erpret this result as normal/abnormal . NRBC/100 WBC (test code See_Comment [Au tomated message] = 8631686003) The system [employer] generated this result transmitted ref erence range: 0.0 - 10 .0 /100 WBCs. The reference range was not used to int erpret this result as normal/abnormal . IPF % (test code = 9.3 % 1.2-10.7 Platelet count [id number]) measured by fluorescence me thod. Lab Interpretation Abnormal (test code = 94878-9) [facility] SCREEN BY PCR, [id number] 15:49:00 Test Item Value Reference Range Interpretation Comments MSSA Screen by PCRAngelito (test code Negative Negative = 24342-2) MRSA/MSSA Positive? (test code = No No [id number]) Lab Interpretation (test code = Normal 71140-7) [facility] WITHOUT [id number] 11:37:00 Test Item Value Reference Range Interpretation Comments WBC (test code = See_Comment [Automated message] 6690-2) The system [employer] generated this result transmitted ref erence range: 4.20 - 1 0.70 10*3/?L. The reference range was not used to int erpret this result as normal/abnormal . RBC (test code = 789-8) See_Comment L [Au tomated message] The system [employer] generated this result transmitted ref erence range: 4.26 - 5 .52 10*6/?L. The reference range was not used to int erpret this result as normal/abnormal . HGB (test code = 718-7) 8.3 g/dL 12.2-16.4 L HCT (test code = 25.3 % 38.4-49.3 L 4544-3) MCH (test code = 785-6) 29.2 pg 26.1-32.7 MCV (test code = 787-2) 89.1 fL 81.7-95.6 MCHC (test code = 32.8 g/dL 31.2-35 786-4) PLT (test code = 777-3) See_Comment L [Au tomated message] The system [employer] generated this result transmitted ref erence range: 150 - 32 8 10*3/?L. The reference range was not used to int erpret this result as normal/abnormal . MPV (test code = 12.0 fL 9.8-13 12507-5) RDW-CV (test code = 15.9 % 12.1-15.4 H 788-0) RDW-SD (test code = 51.8 fL 38.5-51.6 H 29504-6) NRBC x10^3 (test code = See_Comment [Au tomated message] [id number]) The system [employer] generated this result transmitted ref erence range: 10*3/?L. The reference range was not used to int erpret this result as normal/abnormal . NRBC/100 WBC (test code See_Comment [Au tomated message] = 5283018033) The system [employer] generated this result transmitted ref erence range: 0.0 - 10 .0 /100 WBCs. The reference range was not used to int erpret this result as normal/abnormal . IPF % (test code = 8.0 % 1.2-10.7 Platelet count [id number]) measured by fluorescence me thod. Lab Interpretation Abnormal (test code = 78344-1) [facility] METABOLIC PANEL (NA, K, CL, CO2, GLUCOSE, BUN, CREATININE, CA)2020-07-04 11:20:00 Test Item Value Reference Range Interpretation Comments NA (test code = 139 mmol/L 135-145 4529745350) K (test code = 3.7 mmol/L 3.5-5 3432035872) CL (test code = 109 mmol/L 98-108 H 9243559064) CO2 TOTAL (test code = 27 mmol/L 23-31 2019886572) AGAP (test code = 2-16 1652069827) BUN (test code = 30 mg/dL 7-23 H 2442400263) GLUCOSE (test code = 93 mg/dL 70-110 6688545519) CREATININE (test code = 1.00 mg/dL 0.6-1.25 4193838242) CALCIUM (test code = 7.7 mg/dL 8.6-10.6 L 1490473260) eGFR Calculation mL/min/1.73m2 (Non-) (test code = 8148566657) eGFR Calculation mL/min/1.73m2 () (test code = 9771861511) INNA (test code = INNA) Association of Glomerular Filtration Rate (GFR) and Staging of Kidney Disease* + --+ --+ ------+| GFR (mL/min/1.73 m2) ?| With Kidney Damage ?| ?Without Kidney Damage+ --------+ --------+ +| ?>90 ?| ?Stage one ?| ? Normal ?+ ---+ ---+ -------+| ?60-89 ?| ?Stage two ?| ? Decreased GFR ? + --+ --+ ------+| ?30-59 ?| ?Stage three ?| ? Stage three ? + --+ --+ ------+| ?15-29 ?| ?Stage four ? | ? Stage four ?+ ---+ ---+ -------+| ?<15 (or dialysis) ? ?| ?Stage five ? | ? Stage five ?+ ---+ ---+ -------+ *Each stage assumes the associated GFR level has been in effect for at least three months. ?Stages 1 to 5, with or without kidney disease, indicate chronic kidney disease. Notes: Determination of stages one and two (with eGFR >59mL/min/1.73 m2) requires estimation of kidney damage for at least three months as defined by structural or functional abnormalities of the kidney, manifested by either:Pathological abnormalities or Markers of kidney damage (including abnormalities in the composition of the blood or urine or abnormalities in imaging tests). Lab Interpretation Abnormal (test code = 29970-6) [facility] 11:20:00 Test Item Value Reference Range Interpretation Comments MAGNESIUM (test code = 8540774962) 2.1 mg/dL 1.7-2.4 Lab Interpretation (test code = Normal 65077-5) [facility] Packed RBC (in units), 2 Units 2020-07-04 07:46:55 Test Item Value Reference Range Interpretation Comments Cross Match Result Compatible (test code = 4409) ISBT Blood Type Code (test code = 264098) Unit Blood Type (test O Pos code = 4410) Unit Number (test [id number] code = 4411) Blood Expiration Date & Time (test code = 401264) Status Information Issued (test code = 4412) Product Red Blood Cells Identification (test code = 4413) Product Code (test E0969U08 Performed at [facility] code = 4414) Laboratory Services - [facility] Blood [address] [place] [id number] Free: [phone] A No. [id number] [facility] WITHOUT [id number] 03:11:00 Test Item Value Reference Range Interpretation Comments WBC (test code = 6690-2) See_Comment [A utomated message] The system [employer] generated this result transmit teja reference range : 4.20 - 10.70 10*3/?L. The reference range was not used to interpret this result as normal/abnormal . RBC (test code = 789-8) See_Comment L [Au tomated message] The system [employer] generated this result transmit teja reference range : 4.26 - 5.52 10* 6/?L. The reference r sae was not used to interpret this result as normal/abnormal . HGB (test code = 718-7) 6.4 g/dL 12.2-16.4 L HCT (test code = 4544-3) 20.2 % 38.4-49.3 L MCH (test code = 785-6) 29.0 pg 26.1-32.7 MCV (test code = 787-2) 91.4 fL 81.7-95.6 MCHC (test code = 786-4) 31.7 g/dL 31.2-35 PLT (test code = 777-3) See_Comment L [Au tomated message] The system [employer] generated this result transmit teja reference range : 150 - 328 10*3/?L. The reference range was not used to interpret this result as normal/abnormal . MPV (test code = 11.6 fL 9.8-13 78397-2) RDW-CV (test code = 17.1 % 12.1-15.4 H 788-0) RDW-SD (test code = 56.9 fL 38.5-51.6 H 36528-8) NRBC x10^3 (test code = See_Comment [Au tomated message] [id number]) The system [employer] generated this result transmit teja reference range : 10*3/?L. The reference range was not used to interpret this result as normal/abnormal . NRBC/100 WBC (test code See_Comment [Au tomated message] = 7318520661) The system [facility] generated this result transmit teja reference range : 0.0 - 10.0 /100 WBC s. The reference r sae was not used to interpret this result as normal/abnormal . IPF % (test code = 7759879999) Lab Interpretation (test Abnormal code = 81104-2) [facility] WITHOUT [id number] 20:26:00 Test Item Value Reference Range Interpretation Comments WBC (test code = 6690-2) See_Comment [A utomated message] The system [employer] generated this result transmit teja reference range : 4.20 - 10.70 10*3/?L. The reference range was not used to interpret this result as normal/abnormal . RBC (test code = 789-8) See_Comment L [Au tomated message] The system [employer] generated this result transmit teja reference range : 4.26 - 5.52 10* 6/?L. The reference r sae was not used to interpret this result as normal/abnormal . HGB (test code = 718-7) 7.0 g/dL 12.2-16.4 L HCT (test code = 4544-3) 21.8 % 38.4-49.3 L MCH (test code = 785-6) 28.5 pg 26.1-32.7 MCV (test code = 787-2) 88.6 fL 81.7-95.6 MCHC (test code = 786-4) 32.1 g/dL 31.2-35 PLT (test code = 777-3) See_Comment L [Au tomated message] The system [facility] generated this result transmit teja reference range : 150 - 328 10*3/?L. The reference range was not used to interpret this result as normal/abnormal . MPV (test code = 12.2 fL 9.8-13 83848-2) RDW-CV (test code = 17.1 % 12.1-15.4 H 788-0) RDW-SD (test code = 55.0 fL 38.5-51.6 H 38738-9) NRBC x10^3 (test code = See_Comment [Au tomated message] 8975889317) The system [employer] generated this result transmit teja reference range : 10*3/?L. The reference range was not used to interpret this result as normal/abnormal . NRBC/100 WBC (test code See_Comment [Au tomated message] = 9208726567) The system [employer] generated this result transmit teja reference range : 0.0 - 10.0 /100 WBC s. The reference r sae was not used to interpret this result as normal/abnormal . IPF % (test code = 3127769562) Lab Interpretation (test Abnormal code = 84447-2) [facility] Whole [id number] 17:33:00 Test Item Value Reference Range Interpretation Comments LACTIC ACID (test code = 2.07 mmol/L 6057713869) [facility]cosType and Screen - ONCE [id number] 16:33:10 Test Item Value Reference Range Interpretation Comments ABO & RH (test code O Positive Performe d at [facility] = 20) Laboratory [facility] [employer] [facility] [place] [phone] 4Toll Free: [phone] 266CLIA No. [id number] IAT (test code = Negative Performed a t [facility] 1185) Laboratory [facility] [employer] [facility] [phone] 4Toll Free: [phone] 266CLIA No. [id number] [facility] MarcosABORH [id number] 16:22:27 Test Item Value Reference Range Interpretation Comments ABO & RH (test code O Positive Performe d at [facility] = 20) Laboratory [facility] [employer] [facility] [place], [place] [address] 4Toll Free: [phone] 266CLIA No. [id number] [facility] 1 [id number] 16:06:46EXAM: XR CHEST 1 VW HISTORY: s/p cabg COMPARISON: None. FINDINGS: The heart is slightly enlarged but the mediastinal structures are normal inappearance. The tip of the single pacemaker electrode is inthe apex of theright ventricle. The lungs are well expanded and clear. ? [facility], Radiant Results Inft User - 07/03/2020 11:07 AM CDTEXAM: XR CHEST 1 VWHISTORY: s/p cabg COMPARISON: None.FINDINGS:The heart is slightly enlarged but the mediastinal structures are normal inappearance. The tip of the single pacemaker electrode is in the apex of theright ventricle. The lungs are well expanded and clear.[facility] MarcosaPTT2020-09-21 15:21:00 Test Item Value Reference Range Interpretation Comments APTT Patient (test code See_Comment L [Au tomated message] = 3173-2) The system [employer] generated this result transmitted ref erence range: 26 - 36 Seconds. The reference range was not used to int erpret this result as normal/abnormal . Lab Interpretation (test Abnormal code = 84748-0) [facility] MarcosPROTHROMBIN TIME / [id number] 15:21:00 Test Item Value Reference Range Interpretation Comments PROTIME PATIENT (test See_Comment H [Auto mated message] code = 5964-2) The system [employer] generated this result transmitted ref erence range: 10.1 - 1 2.6 Seconds. The reference range was not used to int erpret this result as normal/abnormal . INR (test code = 6301-6) Nor mal INR <1.1; Warfarin Therap eutic range 2.0 to 3. 0 or 2.5 to 3.5, dep ending upon the indica tions. Lab Interpretation (test Abnormal code = 32849-5) [facility] MarcosFIBRINOGEN2020-09-21 15:21:00 Test Item Value Reference Range Interpretation Comments Fibrinogen (test code = 2108318164) 220 mg/dL 167-453 Lab Interpretation (test code = Normal 93696-0) [facility]cosMAGNESIUM2020-09-21 15:19:00 Test Item Value Reference Range Interpretation Comments MAGNESIUM (test code = 9296662019) 2.1 mg/dL 1.7-2.4 Lab Interpretation (test code = Normal 66817-1) [facility]cosPHOSPHORUS2020-09-21 15:19:00 Test Item Value Reference Range Interpretation Comments PHOSPHORUS (test code = 2814120849) 4.1 mg/dL 2.5-5 Lab Interpretation (test code = Normal 51666-6) [facility] MarcosCOMP. METABOLIC PANEL (40601)2020-07-03 15:19:00 Test Item Value Reference Range Interpretation Comments NA (test code = 138 mmol/L 135-145 8944477203) K (test code = 4.0 mmol/L 3.5-5 5112501677) CL (test code = 102 mmol/L 98-108 3307923461) CO2 TOTAL (test code = 26 mmol/L 23-31 0268959370) AGAP (test code = 2-16 0028166539) BUN (test code = 36 mg/dL 7-23 H 6716766158) GLUCOSE (test code = 144 mg/dL 70-110 H 2140183113) CREATININE (test code = 1.14 mg/dL 0.6-1.25 6628207506) TOTAL BILI (test code = 1.2 mg/dL 0.1-1.1 H 1633343176) CALCIUM (test code = 8.4 mg/dL 8.6-10.6 L 2759480276) T PROTEIN (test code = 5.9 g/dL 6.3-8.2 L 3311970316) ALBUMIN (test code = 3.6 g/dL 3.5-5 6316974842) ALK PHOS (test code = 27 U/L 34-122 L 7312468576) ALTv (test code = 13 U/L 5-50 1742-6) AST(SGOT) (test code = 20 U/L 13-40 7161317290) eGFR Calculation mL/min/1.73m2 (Non-) (test code = 3737976023) eGFR Calculation mL/min/1.73m2 () (test code = 8705901962) INNA (test code = INNA) Association of Glomerular Filtration Rate (GFR) and Staging of Kidney Disease* + --+ --+ ------+| GFR (mL/min/1.73 m2) ?| With Kidney Damage ?| ?Without Kidney Damage+ --------+ --------+ +| ?>90 ?| ?Stage one ?| ? Normal ?+ ---+ ---+ -------+| ?60-89 ?| ?Stage two ?| ? Decreased GFR ? + --+ --+ ------+| ?30-59 ?| ?Stage three ?| ? Stage three ? + --+ --+ ------+| ?15-29 ?| ?Stage four ? | ? Stage four ?+ ---+ ---+ -------+| ?<15 (or dialysis) ? ?| ?Stage five ? | ? Stage five ?+ ---+ ---+ -------+ *Each stage assumes the associated GFR level has been in effect for at least three months. ?Stages 1 to 5, with or without kidney disease, indicate chronic kidney disease. Notes: Determination of stages one and two (with eGFR >59mL/min/1.73 m2) requires estimation of kidney damage for at least three months as defined by structural or functional abnormalities of the kidney, manifested by either:Pathological abnormalities or Markers of kidney damage (including abnormalities in the composition of the blood or urine or abnormalities in imaging tests). Lab Interpretation Abnormal (test code = 70069-1) [facility] WITH [id number] 15:13:00 Test Item Value Reference Range Interpretation Comments WBC (test code = See_Comment [Automated 0890-2) message] The sy stem which generated this result transmitted reference range : 4.20 - 10.70 10*3/?L. The reference range was not used to interpret this result as normal/abnormal . RBC (test code = See_Comment L [Automated 929-8) message] The sy stem which generated this result transmitted reference range : 4.26 - 5.52 10*6/?L. The reference range was not used to interpret this result as normal/abnormal . HGB (test code = 7.1 g/dL 12.2-16.4 L 718-7) HCT (test code = 22.4 % 38.4-49.3 L 4544-3) MCV (test code = 91.1 fL 81.7-95.6 787-2) MCH (test code = 28.9 pg 26.1-32.7 785-6) MCHC (test code = 31.7 g/dL 31.2-35 786-4) RDW-SD (test code = 54.9 fL 38.5-51.6 H 83528-2) RDW-CV (test code = 16.6 % 12.1-15.4 H 788-0) PLT (test code = See_Comment L [Automated 777-3) message] The sy stem which generated this result transmitted reference range : 150 - 328 10*3/ ?L. The reference r sae was not used to interpret this result as normal/abnormal . MPV (test code = 11.8 fL 9.8-13 92979-2) NRBC/100 WBC (test See_Comment [Automat ed code = 7055667289) message] The system which generated this result transmitted reference range : 0.0 - 10.0 /100 WBCs. The refer ence range was not u sed to interpret th is result as normal/abnormal . NRBC x10^3 (test code See_Comment [Auto mated = 4228657681) message] The s ystem which generated this result transmitted reference range : 10*3/?L. The reference range was not used to interpret this result as normal/abnormal . GRAN MAT (NEUT) % 77.2 % (test code = 770-8) IMM GRAN % (test code 0.80 % = 9229799944) LYMPH % (test code = 9.3 % 736-9) MONO % (test code = 12.1 % 5905-5) EOS % (test code = 0.4 % 713-8) BASO % (test code = 0.2 % 706-2) GRAN MAT x10^3(ANC) 6.45 10*3/uL 1.99-6.95 (test code = 6776644295) IMM GRAN x10^3 (test 0.07 10*3/uL 0-0.06 H code = 8613243487) LYMPH x10^3 (test code 0.78 10*3/uL 1.09-3.23 L = 731-0) MONO x10^3 (test code 1.01 10*3/uL 0.36-1.02 = 742-7) EOS x10^3 (test code = 0.03 10*3/uL 0.06-0.53 L 711-2) BASO x10^3 (test code <0.03 0.01-0.09 = 704-7) Lab Interpretation Abnormal (test code = 81953-0) [facility]cosL[facility] Acid Whole [id number] 15:00:00 Test Item Value Reference Range Interpretation Comments LACTIC ACID (test code = 2.86 mmol/L 5109285388) [facility] MarcosEXTERNAL CORONAVIRUS [id number] 12:19:00 Test Item Value Reference Range Interpretation Comments External CORONAVIRUS Not Detected Not Detected [facility] COVID-19 (test code = Yue fishman 7038963510) [facility]"
[2022-04-01] MEDS ORDERED: dexAMETHasone 4 MG TAB ONE (15:58)
[2022-04-01] MEDS ORDERED: HYDROCODONE/CHLORPHEN 5 ML/OSYR ONE (15:58)
--- NOTE | 2022-04-01 16:27 | RAD REPORT ---
EXAM DESCRIPTION: RAD - Chest Pa And Lat (2 Views) - 04/01/2022 4:05 pm CLINICAL HISTORY: COUGH COMPARISON: Chest Single View dated 07/03/2020; Chest Single View dated 06/04/2020; Chest Pa And Lat ( 2 Views) dated 10/28/2017; CHEST SINGLE VIEW dated 01/09/2010 FINDINGS: Lines: ICD. Lungs: No evidence of edema or pneumonia. Pleural: No significant pleural effusions or pneumothorax. Cardiac: Cardiomegaly. Sternotomy. Bones: No acute fractures. Other: IMPRESSION: No acute cardiopulmonary disease.
--- NOTE | 2022-04-01 18:22 | ER ---
Nurse's Notes [facility] Name: Jose David Rangel Age: 81 yrs Sex: Male : 1940 Arrival Date: 04/01/2022 Time: 14:59 Bed 12 Private MD: Dorie Turpin Diagnosis: Acute upper respiratory infection, unspecified Presentation: 04/01 15:45 Chief complaint: Patient states: cough and congestion x 1 week ago, states "I think I aa5 have bronchitis". Coronavirus screen: congestion, cough unrelated to allergies. Ebola Screen: No symptoms or risks identified at this time. Initial Sepsis Screen: Does the patient meet any 2 criteria? No. Patient's initial sepsis screen is negative. Does the patient have a suspected source of infection? No. Patient's initial sepsis screen is negative. Risk Assessment: Do you want to hurt yourself or someone else? Patient reports no desire to harm self or others. Onset of symptoms was March 2022. 15:45 Acuity: ANALILIA 3 aa5 15:45 Method Of Arrival: Ambulatory aa5 Triage Assessment: 18:39 General: Appears in no apparent distress. comfortable, Behavior is calm, cooperative, ld1 appropriate for age. Historical: - Allergies: 15:11 Codeine; aa5 - PMHx: 15:11 Hyperlipidemia; Hypertension; Myocardial infarction; aa5 - PSHx: 15:11 colonscopy; aa5 - Immunization history:: Adult Immunizations up to date, Client reports having NOT received the Covid vaccine. - Social history:: Smoking status: Patient denies any tobacco usage or history of. Patient/guardian denies using alcohol. Screenin:50 Abuse screen: Denies threats or abuse. Denies injuries from another. Nutritional ld1 screening: No deficits noted. Tuberculosis screening: No symptoms or risk factors identified. Fall Risk None identified. Assessment: 17:50 Reassessment: Patient appears in no apparent distress at this time. Patient is alert, ld1 oriented x 3, equal unlabored respirations, skin warm/dry/pink. Pain: Denies pain. Vital Signs: 15:45 BP 134 / 66; Pulse 74; Resp 18 S; Temp 98.8(TE); Pulse Ox 96% on R/A; aa5 17:50 BP 142 / 78; Pulse 70; Resp 18; Pulse Ox 96% on R/A; ld1 ED Course: 14:59 Patient arrived in ED. as 14:59 Dorie Turpin is Private Physician. as 15:45 Arm band placed on. aa5 15:46 Triage completed. aa5 15:49 Tomas Apodaca NP is PHCP. pm1 15:49 Everton Guy MD is Attending Physician. pm1 15:52 Strep Sent. mb7 15:52 COVID-19 SARS RT PCR (Document "Date of Onset" if Symptomatic) Sent. mb7 15:52 Flu Sent. mb7 16:07 Chest Pa And Lat (2 Views) XRAY In Process Unspecified. EDMS 17:50 Erendira Strickland, RN is Primary Nurse. ld1 17:50 Patient has correct armband on for positive identification. Placed in gown. Bed in low ld1 position. Call light in reach. Side rails up X2. potline monitor on. Pulse ox on. NIBP on. Door closed. Noise minimized. Warm blanket given. 17:50 No provider procedures requiring assistance completed. Patient did not have IV access ld1 during this emergency room visit. Administered Medications: 15:53 Drug: Tussionex Pennkinetic ER (chlorpheniramine-hydrocodone) Suspension 5 ml Route: PO;aa5 15:54 Drug: Decadron (dexamethasone) 10 mg Route: PO; aa5 Medication: 17:50 VIS not applicable for this client. ld1 Outcome: 18:21 Discharge ordered by . pm1 18:39 Discharged to home ambulatory, with family. ld1 18:39 Condition: stable 18:39 Discharge instructions given to patient, Instructed on discharge instructions, follow up and referral plans. medication usage, Demonstrated understanding of instructions, follow-up care, medications, Prescriptions given X 3. 18:40 Patient left the ED. ld1 Signatures: Dispatcher [employer] EDMS Zhanna Valdez Audri RN RN aa5 Tomas Apodaca, MAYE CUSTOM BOW MAKER pm1 Erendira Strickland, MINNA RN ld1 Luisrachel Tanya mb7
--- NOTE | 2022-04-01 18:22 | EDPHYS ---
Physician Documentation [facility] Name: Jose David Rangel Age: 81 yrs Sex: Male : 1940 Arrival Date: 04/01/2022 Time: 14:59 Bed 12 Private MD: Dorie Turpin ED Physician Everton Guy HPI: 04/01 15:49 This 81 yrs old Male presents to ER via Ambulatory with complaints of Cough, Chest pm1 Congestion. 15:49 The patient or guardian reports cough, with productive sputum, that is white. Onset: pm1 The symptoms/episode began/occurred 1 week(s) ago. Severity of symptoms: in the emergency department the symptoms have improved. Modifying factors: The symptoms are alleviated by OTC cold preparation, the symptoms are aggravated by nothing. Associated signs and symptoms: Pertinent negatives: chest pain, fever, Shortness of breath. The patient has not recently seen a physician. Historical: - Allergies: 15:11 Codeine; aa5 - PMHx: 15:11 Hyperlipidemia; Hypertension; Myocardial infarction; aa5 - PSHx: 15:11 colonscopy; aa5 - Immunization history:: Adult Immunizations up to date, Client reports having NOT received the Covid vaccine. - Social history:: Smoking status: Patient denies any tobacco usage or history of. Patient/guardian denies using alcohol. ROS: 15:49 Constitutional: Negative for fever, chills, and weight loss, Cardiovascular: Negative pm1 for chest pain, palpitations, and edema. 15:49 Abdomen/GI: Negative for abdominal pain, nausea, vomiting, diarrhea, and constipation, Back: Negative for injury and pain, MS/Extremity: Negative for injury and deformity, Skin: Negative for injury, rash, and discoloration, Neuro: Negative for headache, weakness, numbness, tingling, and seizure. 15:49 Respiratory: Positive for cough, Negative for shortness of breath, wheezing. 15:49 All other systems are negative. pm1 Exam: 15:49 Constitutional: This is a well developed, well nourished patient who is awake, alert, pm1 and in no acute distress. Head/Face: Normocephalic, atraumatic. 15:49 Back: No spinal tenderness. No costovertebral tenderness. Full range of motion. Skin: Warm, dry with normal turgor. Normal color with no rashes, no lesions, and no evidence of cellulitis. MS/ Extremity: Pulses equal, no cyanosis. Neurovascular intact. Full, normal range of motion. 15:49 ENT: Exam is negative for acute changes, Mouth: no acute changes, Lips: normal, moist, Oral mucosa: normal, pink and intact, moist, Posterior pharynx: no acute changes. 15:49 Cardiovascular: Exam negative for acute changes, Rate: normal, Rhythm: regular, Pulses: no pulse deficits are appreciated, Heart sounds: normal, normal S1and S2. 15:49 Respiratory: Exam negative for acute changes, respiratory distress, shortness of breath, Breath sounds: are clear throughout. 15:49 Neuro: Exam negative for acute changes, Orientation: is normal, Mentation: is normal, Motor: is normal, moves all fours. Vital Signs: 15:45 BP 134 / 66; Pulse 74; Resp 18 S; Temp 98.8(TE); Pulse Ox 96% on R/A; aa5 17:50 BP 142 / 78; Pulse 70; Resp 18; Pulse Ox 96% on R/A; ld1 MDM: 15:57 Patient medically screened. pm1 18:20 Data reviewed: vital signs. Data interpreted: Pulse oximetry: on room air is 96 %. pm1 Interpretation: normal. Counseling: I had a detailed discussion with the patient and/or guardian regarding: the historical points, exam findings, and any diagnostic results supporting the discharge/admit diagnosis, lab results, radiology results, the need for outpatient follow up, to return to the emergency department if symptoms worsen or persist or if there are any questions or concerns that arise at home. 04/01 15:49 Order name: Flu; Complete Time: 17:43 aa5 04/01 15:49 Order name: Strep; Complete Time: 17:43 aa5 04/01 15:49 Order name: Chest Pa And Lat (2 Views) XRAY; Complete Time: 17:43 pm1 04/01 15:49 Order name: COVID-19 SARS RT PCR (Document "Date of Onset" if Symptomatic); Complete aa5 Time: 17:43 04/01 16:42 Order name: Throat Culture EDMS Administered Medications: 15:53 Drug: Tussionex Pennkinetic ER (chlorpheniramine-hydrocodone) Suspension 5 ml Route: PO;aa5 15:54 Drug: Decadron (dexamethasone) 10 mg Route: PO; aa5 Disposition Summary: 04/01/22 18:21 Discharge Ordered Location: Home pm1 Problem: new pm1 Symptoms: have improved pm1 Condition: Stable pm1 Diagnosis - Acute upper respiratory infection, unspecified pm1 Followup: pm1 - With: Emergency Department - When: As needed - Reason: Worsening of condition Followup: pm1 - With: Private Physician - When: 2 - 3 days - Reason: Recheck today's complaints, Continuance of care, Re-evaluation by your physician Discharge Instructions: - Discharge Summary Sheet pm1 - Upper Respiratory Infection, Adult pm1 Forms: - Medication Reconciliation Form pm1 - Thank You Letter pm1 - Antibiotic Education pm1 - Prescription Opioid Use pm1 Prescriptions: - Ventolin HFA 90 mcg/actuation Inhalation HFA aerosol inhaler - inhale 1 puff by INHALATION route every 4-6 hours As needed; 1 Inhaler; pm1 Refills: 0, Product Selection Permitted - Tessalon Perles 100 mg Oral Capsule - take 1 capsule by ORAL route every 8 hours As needed; 15 capsule; Refills: 0, pm1 Product Selection Permitted - Medrol (Allan) 4 mg Oral Tablets, Dose Pack - take 1 tablet by ORAL route as directed - follow package instructions; 1 pm1 packet; Refills: 0, Product Selection Permitted Signatures: Dispatcher [employer] Jessica Perez RN RN aa5 Tomas Apodaca NP BUSINESS MGR pm1 Erendira Strickland RN RN ld1
[2022-04-01 18:50] VITALS: TEMP 98.8; O2SAT 96
[2022-04-01 18:52] VITALS: BP 142/78
== END 2022-04-01 18:40 | disposition home or self-care (01) ==
LOC: ER 14:57
DX: J06.9 Acute upper respiratory infection, unspecified (principal); I10 Essential (primary) hypertension; Z20.822 Contact with and (suspected) exposure to COVID-19; Z88.5 Allergy status to narcotic agent
CPT/HCPCS: 87070; 87081; 87804 ×2; 71046; U0003; J8540; 99284

== ENCOUNTER 2023-02-12 11:18 | Emergency (ER) | payer MEDICARE, OTHER ==
--- OUTSIDE RECORDS SUMMARY | 2023-02-12 11:22 | XMS REPORT | Continuity of Care Document ---
:1940 Author Organization [facility] t Address [address] [place] [address] Care Team Providers Name Role Phone Sarath KELLEY, Stuart Barahona Primary Care Physician [phone] Dorie Turpin Attending Clinician Unavailable GILBERTO CROWLEY Attending Clinician Unavailable Doctor Unassigned, Verdel Attending Clinician Unavailable Blanca Graf RN Attending Clinician Unavailable Geraldine Stephenson MD Attending Clinician Jelani Castañeda MD Attending Clinician Gilberto Crowley MD Attending Clinician CARYN Attending Clinician Unavailable GERALDINE STEPHENSON Admitting Clinician Unavailable Aria Stephenson MDiaz Admitting Clinician CARYN Admitting Clinician Unavailable Payers Payer Name Policy Type Policy Number Effective Date Expiration Date S ource MEDICARE PART A \\T\\ [id number] 2001 B 00:00:00 [facility] [id number] 2019 MEDICARE SUPPLEMENT 00:00:00 [place]ICARE B-[place]: [id number] 2001 [employer] 00:00:00 [facility] [id number] 2006 OPTION - PLAN E 00:00:00 (MEDICARE SUPPLEMENT) Problems Condition Condition Condition Status Onset Resolution Last Treating Co mments Source Name Details Category Date Date Treatment Clinician Date Gastric Gastric Disease Active Univers bleeding bleeding 07-03 ity of 00:00: [place] [address] Medical Branch GI bleed GI bleed Disease Active Unive rs 9 ity of 00:00: [address] Branch Cardiomyop Cardiomyop Disease Recurre 2015-10 [facility] athy athy nce 11-20 [facility] 00:00: Medical 00 [place] [id number] Thrombocyt Problem Active Co mmon openia Spirit [facility] [id number] 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 - [facility] n internal cardiac [facility] defibrilla Medica l tor (ICD) Center and pacemaker [id number] Type O Problem Active Common blood, Rh Spirit positive [facility] 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 Spirit lumbosacra bunny disc - CH I l disease), St interverte lumbosacra Valeria kes bral disc l [facility] Center [id number] Erectile Problem Active Comm on disorder Spirit due to - [facility] medical [facility] in male Medical Center 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 Spir it sterolemia [facility] 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 , Spirit toxic peripheral - [facility] neuropathy [facility] Vitamin D Vitamin D Problem Active Com mon deficiency deficiency Sp aden [facility] Essential Benign Problem Active Common hypertensi essential Spi rit on HTN [facility] Benign BPH Problem Active Common prostatic (benign Spirit hypertroph prostatic - C HI y with hypertroph St outflow y) with [facility] obstructio urinary Medic al n obstructio Center n [id number] Tobacco Problem Active Commo n use Spirit disorder [facility] Congestive CHF Problem Active Commo n heart (congestiv Spirit failure e heart - CHI failure) [facility] [id number] Environmen Problem Active Co mmon mars Spirit allergies [facility] Osteoarthr Osteoarthr Problem Active C ommon itis itis Spirit [facility] Drug Drug Problem Active Common therapy therapy [facility] [id number] Chronic Problem Active Comm on instabilit Spirit y of right - [facility] knee [facility] [id number] Primary Problem Active Common insomnia [facility] [id number] 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 Allergies, Adverse Reactions, Alerts Allergy Allergy Status Severity Reaction(s) Onset Inactive Treating Comm ents Source Name Type Date Date Clinician Codeine Propensi Active 2015-[address] ty to 11-19 cramps [facility] adverse 00:00: Medical reaction 00 Center s CODEINE Allergy Active 2015-[address] 11-19 [facility] 00:00: Medical 00 Center CODEINE DRUG Active Other-Cmnt 2015-10 Unive rs INGREDI 11-19 ity of 00:00: [place] 00 Medical Branch codeine codeine Active abdominal Commo n pain [facility] Social History Social Habit Start Date Stop Date Quantity Comments Source History of Common [facility] - Tobacco Use [facility] Tobacco use and 2020-07-05 2020-07-05 Current user Univers ity of exposure 00:00:00 00:00:00 [place] [facility] History SDDE 2020-07-03 2020-07-03 2 University o f Transport Non-Med 00:00:00 00:00:00 [place] M edical Branch Tobacco Comment 2020-07-03 2020-07-03 Quit smoking Univers ity of 00:00:00 00:00:00 1973, current [place] Medic al daily chewing Branch tobacco user History SDDE 2020-07-03 2020-07-03 21 University o f Education 00:00:00 00:00:00 [place] [facility] History SDOH 2020-07-03 2020-07-03 5 University o f Financial 00:00:00 00:00:00 [place] [facility] History SDDE Food 2020-07-03 2020-07-03 1 Univers ity of Worry 00:00:00 00:00:00 [place] [facility] History SDDE Food 2020-07-03 2020-07-03 1 Univers ity of Scarcity 00:00:00 00:00:00 [place] [facility] History SDDE 2020-07-03 2020-07-03 2 University o f Transport Med 00:00:00 00:00:00 [place] Medic al Branch Alcohol intake 2016-09-20 2016-09-20 Current [place]ON [place] es 00:00:00 00:00:00 non-drinker of Medical Ce nter alcohol (finding) Alcohol Comment 2016-09-19 2016-09-19 ocassional HAROON Huffman 00:00:00 00:00:00 [facility] Sex Assigned At [birth year] HAROON Huffman 00:00:00 00:00:00 Medical Center Smoking Status Start Date Stop Date Source Never Smoker [facility] - [facility] Former smoker 2020-07-05 00:00:00 2020-07-05 00:00:00 [facility] Medical [place] Medications Ordered Filled Start Stop Current Ordering Indication Dosage Frequency Signature Comments Components Source Medication Medication Date Date Medication? Clinician (SIG) Name Name omeprazole 2020-0 Yes 20mg Take 20 mg U nivers 20 mg 9-23 by mouth ity of capsule 22:53: daily. [place] [address] Medical Branch pravastatin 2020-0 Yes 80mg Take 80 mg Univers 80 mg 9-23 by mouth ity of tablet 22:53: at [place] [address] bedtime. Medical Branch furosemide 2020-0 Yes 40mg Take 40 mg U nivers (LASIX) 40 9-23 by mouth ity o f mg tablet 22:53: daily. [address] Branch digoxin 125 2020-0 Yes 125ug Take 125 U nivers mcg (0.125 9-23 mcg by ity of mg) tablet 22:53: mouth [place] [address] daily. Medical Branch carvediloL 2020-0 Yes 25mg Take 25 mg U nivers 6.25 mg 9-23 by mouth 2 ity of tablet 22:53: (two) [place] [address] times [facility] daily with Branch meals. omeprazole 2020-0 Yes 20mg Take 20 mg U nivers 20 mg 9-23 by mouth ity of capsule 22:53: daily. [address] pravastatin 2020-0 Yes 80mg Take 80 mg Univers 80 mg 9-23 by mouth ity of tablet 22:53: at [place] [address] bedtime. Medical Branch furosemide 2020-0 Yes 40mg Take 40 mg U nivers (LASIX) 40 9-23 by mouth ity o f mg tablet 22:53: daily. [address] digoxin 125 2020-0 Yes 125ug Take 125 U nivers mcg (0.125 9-23 mcg by ity of mg) tablet 22:53: mouth [place] [address] daily. Medical Branch carvediloL 2020-0 Yes 25mg Take 25 mg U nivers 6.25 mg -23 by mouth 2 ity of tablet 22:53: (two) [place] [address] times Medical daily with Branch meals. omeprazole 2020-0 Yes 20mg Take 20 mg U nivers 20 mg 9-23 by mouth ity of capsule 22:53: daily. [place] [address] Medical Branch pravastatin 2020-0 Yes 80mg Take 80 mg Univers 80 mg 9-23 by mouth ity of tablet 22:53: at [place] [address] bedtime. Medical Branch furosemide 2020-0 Yes 40mg Take 40 mg U nivers (LASIX) 40 9-23 by mouth ity o f mg tablet 22:53: daily. [place] [address] Medical Branch digoxin 125 2020-0 Yes 125ug Take 125 U nivers mcg (0.125 9-23 mcg by ity of mg) tablet 22:53: mouth [place] 13 daily. Medical Branch carvediloL 2020-0 Yes 25mg Take 25 mg U nivers 6.25 mg - by mouth 2 ity of tablet 22:53: (two) [place] [address] times Medical daily with Branch meals. aspirin 81 2020-0 2020- No 81mg Take 81 mg Univers mg EC 07-05 by mouth ity of tablet 17:07: 00:00 daily. [place] 27 :00 Medical Branch apixaban 5 2020-0 2020- No 5mg Take 5 mg U nivers mg tablet 07-05 by mouth 2 ity of 17:07: 00:00 (two) [place] 27 :00 times Medical daily. Branch apixaban 5 2020-0 Yes 1358 5mg Take 1 Unive rs mg tablet - tablet by ity o f 00:00: mouth 2 [place] [address] (two) Medical [facility] daily. Resume in 3 days Indication s: atrial fibrillati on aspirin 81 2020-0 Yes 81mg Take 1 Unive rs mg EC 9-23 tablet by ity of tablet 00:00: mouth [place] 00 daily. Medical Resume in Branch 3 days apixaban 5 2020-0 Yes 1358 5mg Take 1 Unive rs mg tablet -23 tablet by ity o f 00:00: mouth 2 [place] 00 (two) Medical times [place] daily. Resume in 3 days Indication s: [...] mouth 2 [place] 00 (two) Medical times [place] daily. Resume in 3 days Indication s: [...] mL pravastatin 2020-0 Yes 40mg 40 mg, [facility] ers (PRAVACHOL) 07-04 Oral, QHS, it y of tablet 40 02:00: [place] dose [place] mg 00 on [facility] Medical 07/03/20 at Branch 2100, Until Discontinu ed, Routine peg-electro 2019-0 2020- No 4000mL 4,000 mL, Univers lyte soln 07-03 Oral, ity of (GOLYTELY) 21:00: 22:17 ONCE, 1 [place] as 236-22.74-6 00 :00 dose, Mon Med ical .74 -5.86 07/03/20 at Bran ch gram 1600, solution Routine 4,000 mL NaCl 0.9% 2020-0 2020- No 1000mL at 75 Univ ers (NS) IV 07-03 mL/hr, IV ity of infusion 21:00: 20:05 Infusion, [place] as 1,000 mL 00 :00 ONCE, 1 Medical dose, [facility] 9/21/20 at 1600, Routine pantoprazol 2020-0 2020- No 40mg 40 mg, IV Univers e 07-03 Piggyback, ity of (PROTONIX) 15:45: 19:09 Q12H, [place] 40 mg in 00 :12 First dose Medic al NaCl 0.9% on Mon Branch (NS) 100 mL 07/03/20 at MINI-BAG 1045, Until Discontinu ed, 100 mL glucagon 2019-0 Yes 1mg 1 mg, Univers (GLUCAGEN 07-03 Intramuscu ity of DIAGNOSTIC 15:25: lar, PRN, [place] KIT) 16 Starting Medical injection 1 Mon Branch mg 07/03/20 at 1025, Until Discontinu ed, AMITA, Blood Glucose < or = 70 mg/dL and patient is unable to swallow or has mental changes. dextrose 50 2019-0 Yes 25mL 25 mL, Univ ers % in water 07-03 Slow IV ity of (D50W) 15:25: Push, PRN, [place] injection 16 Starting Medica l 25 mL Mon Branch 07/03/20 at 1025, Until Discontinu ed, AMITA, Blood Glucose < or = 70 mg/dL and patient is unable to swallow or has mental status changes. Carvedilol Carvedilol 2018-10 No 1{table BID Carvedilol 25 MG 25 MG 0-22 t} 25 MG 00:00: 00 clopidogrel 2015-10 Yes 75mg QD Take [address] (PLAVIX) 75 2-09 by mouth Luke s mg tablet 11:24: daily. Medica l 20 [place] digoxin 2015-10 Yes 125ug QD Take 125 [facility] t (LANOXIN) 2-09 mcg by [facility]ukes 0.125 MG 11:24: mouth Medical tablet 20 daily. [place] carvedilol 2015-10 Yes 6.25mg Take 6.[address] (COREG) 2-09 mg by [facility]ukes 6.25 MG 11:24: mouth 2 Medical tablet 20 (two) Center times daily with breakfast and dinner. pravastatin 2015-10 Yes 80mg QD Take [address] (PRAVACHOL) 2-09 by mouth Luke s 80 MG 11:24: daily. Medical tablet 20 [place] sacubitril- 2015-10 Yes 1{tbl} Q.5D Take [address] valsartan 2-09 tablet by [facility]ukes (ENTRESTO) 11:24: mouth 2 Medi alexandra 24-26 mg 20 (two) Center Tab times daily. omeprazole 2015-10 Yes 20mg QD Take [address] (PRILOSEC) 2-09 by mouth Lukes 20 MG 11:24: daily. Medical capsule 20 [place] aspirin 81 2015-10 Yes 81mg QD Take [address] MG EC 2-09 by mouth [facility]ukes tablet 11:24: daily. [address] clopidogrel 2015-10 Yes 75mg QD Take [address] (PLAVIX) 75 2-09 by mouth Luke s mg tablet 11:24: daily. Medica l [address] [place] [address] digoxin 2015-10 Yes 125ug QD Take 125 [facility] t (LANOXIN) 2-09 mcg by Lukes 0.125 MG 11:24: mouth Medical tablet 20 daily. [place] carvedilol 2015-10 Yes 6.25mg Take 6.[address] (COREG) 2-09 mg by Lukes 6.25 MG 11:24: mouth 2 Medical tablet 20 (two) Center times daily with breakfast and dinner. pravastatin 2015-10 Yes 80mg QD Take [address] (PRAVACHOL) 2-09 by mouth Luke s 80 MG 11:24: daily. Medical tablet [address] [place] [address] sacubitril- 2015-10 Yes 1{tbl} Q.5D Take [address] valsartan 2-09 tablet by [facility]ukes (ENTRESTO) 11:24: mouth 2 Medi alexandra 24-26 mg 20 (two) Center Tab times daily. omeprazole 2015-10 Yes 20mg QD Take [address] (PRILOSEC) 2-09 by mouth Lukes 20 MG 11:24: daily. Medical capsule 20 [place] aspirin 81 2015-10 Yes 81mg QD Take [address] MG EC 2-09 by mouth [facility]ukes tablet 11:24: daily. [address] Omeprazole Omeprazole No QD Omeprazole 20 MG 20 MG 20 MG Digoxin 125 Digoxin 125 No Digoxin MCG MCG 125 MCG Eliquis 5 Eliquis 5 No Eliquis 5 MG MG MG Furosemide Furosemide No Furosemide 40 MG 40 MG 40 MG Pravastatin Pravastatin No 1{table QD Pravastati Sodium 80 Sodium 80 t} n Sodium MG MG 80 MG Immunizations Ordered Immunization Filled Immunization Date Status Commen ts Source Name Name FLUZONE HIGH DOSE FLUZONE HIGH DOSE 2021-07-11 Completed [facility] OVER 65 OVER 65 08:56:00 - [facility] Td Td 2021-06-18 Completed [facility] 09:04:00 [facility] COVID-19 Vaccine COVID-19 Vaccine 2020-12-26 Completed Co mmon Spirit (Lady) (Lday) 15:16:00 [facility] Prevnar 13 (PCV13) Prevnar 13 (PCV13) 2020-07-07 Completed [facility] 15:17:00 [facility] FLUZONE HIGH DOSE FLUZONE HIGH DOSE 2020-07-07 Completed [facility] OVER 65 OVER 65 15:00:00 [facility] Vital Signs Vital Name Observation Time Observation Value Comments Source height 2021-12-31 08:00:00 64.5 [in_i] [facility] weight 2021-12-31 08:00:00 171 [lb_av] [facility] temperature 2021-12-31 08:00:00 98.1 [degF] [facility] bmi 2021-12-31 08:00:00 28.9 kg/m2 [facility] oximetry 2021-12-31 08:00:00 95 % [facility] respiratory rate 2021-12-31 08:00:00 16 /min Comm on [facility] blood pressure 2021-12-31 08:00:00 138 mm[Hg] Common [facility] - systolic [facility] blood pressure 2021-12-31 08:00:00 82 mm[Hg] [facility] - diastolic [facility] Systolic blood 2020-07-05 16:47:00 134 mm[Hg] Univer sity of pressure [facility] Diastolic blood 2020-07-05 16:47:00 55 mm[Hg] Unive rsity of [facility] Heart rate 2020-07-05 16:47:00 83 /min [facility] Body temperature 2020-07-05 16:47:00 36.44 Rukhsana Univ ers[facility] Respiratory rate 2020-07-05 16:47:00 19 /min [facility] Oxygen saturation in 2020-07-05 16:47:00 97 /min [facility] Arterial blood by [facility] Pulse oximetry [place] Body weight 2020-07-04 17:00:00 67.4 kg [facility] BMI 2020-07-04 17:00:00 25.51 kg/m2 [facility] Body height 2020-07-03 15:30:00 162.6 cm [facility] Procedures Procedure Date / Time Performing Source Performed Clinician EXTERNAL PROVIDER RECORDS 2020-07-12 [facility] 05:01[facility]00 Unassigned, No [facility] CBC WITHOUT DIFF 2020-07-05 [facility] 10[facility]00[facility]00 [facility] CBC WITHOUT DIFF 2020-07-04 Иван [facility] 20:21:00 [facility] COLONOSCOPY (ENDO) 2020-07-04 Carline [facility] 15:50:27 [facility] ESOPHAGOGASTRODUODENOSCOPY 2020-07-04 Grzegorz Tony [facility] ersity of 15:30:00 [facility] COLONOSCOPY 2020-07-04 [facility] 15:30:00 [facility] EGD (ENDO) 2020-07-04 Carline [facility] 15:04:07 [facility] TRANSFUSE PACKED RBC 2020-07-04 [facility] 12:08:[address] [facility] [place] MAGNESIUM 2020-07-04 [facility] 11:04:[address] [facility] BASIC METABOLIC PANEL (NA, K, CL, 2020-07-04 [facility] CO2, GLUCOSE, BUN, CREATININE, CA) 11:04:[address] [facility] CBC WITHOUT DIFF 2020-07-04 [facility] 11:04:00 [facility] PREPARE PACKED RBC 2020-07-04 [facility] 07:46:[address] [facility] TRANSFUSE PACKED RBC 2020-07-04 [facility] 06:45:[address] [facility] CBC WITHOUT DIFF 2020-07-04 [facility] 03:02:00 [facility] CBC WITHOUT DIFF 2020-07-03 [facility] 20:06:00 [facility] LACTIC ACID WHOLE BLOOD 2020-07-03 [facility] 17:22:00 [facility] ABORH CONFIRMATION 2020-07-03 [facility] 16:11:00 [facility] HB ABO GROUPING 2020-07-03 [facility] 16:00:00 [facility] XR CHEST 1 VW 2020-07-03 [facility] 15:43:46 [facility] LACTIC ACID WHOLE BLOOD 2020-07-03 [facility] 14:50:00 [facility] PHOSPHORUS 2020-07-03 [facility] 14:49:00 [facility] MAGNESIUM 2020-07-03 [facility] 14:49:00 [facility] COMP. METABOLIC PANEL (01230) 2020-07-03 [facility] 14:49:00 [facility] CBC WITH DIFF 2020-07-03 [facility] 14:49:00 [facility] PROTHROMBIN TIME / INR 2020-07-03 [facility] 14:49:00 [facility] ACTIVATED PARTIAL THRMPLAS LISBETH 2020-07-[address] [facility] niversity of 14:49:00 [facility] FIBRINOGEN 2020-07-03 [facility] 14:49:00 [facility] MRSA / MSSA SCREEN BY PCR, NARES 2020-07-03 [facility] of 14:49:00 [facility] EXTERNAL CORONAVIRUS COVID-19 2020-07-03 Doctor Un iversity of 11:54:00 Unassigned, No [facility] Encounters Start End Encounter Admission Attending Care Care Encounter Source Date/Time Date/Time Type Type Clinicians Facility Department ID 2022-12-11 Outpatient MEAGAN Turpin [facility] [id number] Common 12:20:00 Dorie [address] [facility] 2022-03-29 Outpatient MEAGAN Turpin [facility] [id number] Common 08:22:02 Dorie [address] [facility] 2021-12-31 Outpatient MEAGAN Turpin [facility] [id number] Common 07:56:00 Dorie [facility] - [facility] 2020-07-03 Inpatient U CARLINE MITRA YUMIKO [id number] Univers 09:17:00 GILBERTO rushing of [facility] 2020-07-03 Hospital [facility] [id number] [facility] 00:00:00 Encounter [facility] 2021-12-31 2021-12-31 OFFICE [facility] [id number] Co mmon 00:00:00 00:00:00 VISIT Spirit ESTAB PT - [facility] LEVEL 4 [facility] 2020-07-12 2020-07-12 Orders Doctor MERVAT [id number] Univers 00:00:00 00:00:00 Only Unassigned, DEYANIRA 350.1.13.10 ity of [place] [facility] 4.2.7.2.686 [place] as [id number] [facility] 009 Branch 2020-07-06 2020-07-06 Transition Heather Graf [id number] Univers 00:00:00 00:00:00 of Care Blanca Matos 350.1.13.10 it y of [place] 4[place]2.7.2.686 [place] [id number] [facility] 403 Branch 2020-07-03 2020-07-05 Hospital Geraldine Stephenson [facility] [id number] Univers 09:17:00 15:50:00 Encounter Иван Shirley [facility] 350.1.13 .10 ity of Gilberto Crowley 4.2.7.2.686 [facility] [id number] [facility] 113 Branch (CLC) 2016-09-03 2016-09-03 Outpatient MICHAEL_Salma MMG MMG [id number] [place] 03:16:00 03:16:00 918 da [...] as normal/abnormal . MPV (test code = 81849-2) 11.8 fL 9.8-13 RDW-CV (test code = 788-0) 16.2 % 12.1-15.4 H RDW-SD (test code = 95861-5) 52.5 fL 38.5-51.6 H NRBC x10^3 (test code = See_Comment [Au tomated message] The system [id number]) which generated this result transmitted ref erence range: 10*3/?L. The re ference range was not used to interpret this result as kirill l/abnormal. NRBC/100 WBC (test code = See_Comment [ Automated message] The system [id number]) which generated this result transmitted ref erence range: 0.0 - 10.0 /100 WBCs. The reference range was not used to interpret this result as normal/abnormal . IPF % (test code = 6924816764) 8.5 % 1.2-10.7 Platelet count measured by fluorescence me thod. Lab Interpretation (test code Abnormal = 09397-2) [facility] WITHOUT [id number] 20:37:00 Test Item Value Reference Range Interpretation Comments WBC (test code = See_Comment [Automated message] 6690-2) The system [employer] generated this result transmitted ref erence range: 4.20 - 1 0.70 10*3/?L. The reference range was not used to int erpret this result as normal/abnormal . RBC (test code = 789-8) See_Comment L [Au tomated message] The system [employer] generated this result transmitted ref erence range: [...] See_Comment L [Au tomated message] The system [employer] generated this result transmitted ref erence range: 150 - 32 8 10*3/?L. The reference range was not used to int erpret this result as normal/abnormal . MPV (test code = 11.8 fL 9.8-13 16885-5) RDW-CV (test code = 16.2 % 12.1-15.4 H 788-0) RDW-SD (test code = 53.8 fL 38.5-51.6 H 97591-1) NRBC x10^3 (test code = See_Comment [Au tomated message] [id number]) The system [employer] generated this result transmitted ref erence range: 10*3/?L. The reference range was not used to int erpret this result as normal/abnormal . NRBC/100 WBC (test code See_Comment [Au tomated message] = 1395276851) The system [facility] generated this result transmitted ref erence range: 0.0 - 10 .0 /100 WBCs. The reference range was not used to int erpret this result as normal/abnormal . IPF % (test code = 9.3 % 1.2-10.7 Platelet count [id number]) measured by fluorescence me thod. Lab Interpretation Abnormal (test code = 52792-7) [facility] BY PCR, [id number] 15:49:00 Test Item Value Reference Range Interpretation Comments MSSA Screen by PCRAngelito (test code Negative Negative = 97117-5) MRSA/MSSA Positive? (test code = No No [id number]) Lab Interpretation (test code = Normal 63800-3) [facility] [id number] 11:37:00 Test Item Value Reference Range Interpretation Comments WBC (test code = See_Comment [Automated message] 6690-2) The system [employer] generated this result transmitted ref erence range: 4.20 - 1 0.70 10*3/?L. The reference range was not used to int erpret this result as normal/abnormal . RBC (test code = 789-8) See_Comment L [Au tomated message] The system [employer] generated this result transmitted ref erence range: [...] See_Comment L [Au tomated message] The system [employer] generated this result transmitted ref erence range: 150 - 32 8 10*3/?L. The reference range was not used to int erpret this result as normal/abnormal . MPV (test code = 12.0 fL 9.8-13 47507-2) RDW-CV (test code = 15.9 % 12.1-15.4 H 788-0) RDW-SD (test code = 51.8 fL 38.5-51.6 H 39036-5) NRBC x10^3 (test code = See_Comment [Au tomated message] 9418709390) The system [employer] generated this result transmitted ref erence range: 10*3/?L. The reference range was not used to int erpret this result as normal/abnormal . NRBC/100 WBC (test code See_Comment [Au tomated message] = 3492603586) The system [employer] generated this result transmitted ref erence range: 0.0 - 10 .0 /100 WBCs. The reference range was not used to int erpret this result as normal/abnormal . IPF % (test code = 8.0 % 1.2-10.7 Platelet count [id number]) measured by fluorescence me thod. Lab Interpretation Abnormal (test code = 23750-5) [facility] METABOLIC PANEL (NA, K, CL, CO2, GLUCOSE, BUN, CREATININE, CA)2020-07-04 11:20:00 Test Item Value Reference Range Interpretation Comments NA (test code = 139 mmol/L 135-145 7218223118) K (test code = 3.7 mmol/L 3.5-5 1129549211) CL (test code = 109 mmol/L 98-108 H 6825662339) CO2 TOTAL (test code = 27 mmol/L 23-31 1117181048) AGAP (test code = 2-16 8278249771) BUN (test code = 30 mg/dL 7-23 H 0883407645) GLUCOSE (test code = 93 mg/dL 70-110 5229148544) CREATININE (test code = 1.00 mg/dL 0.6-1.25 0830679768) CALCIUM (test code = 7.7 mg/dL 8.6-10.6 L 1210707555) eGFR Calculation mL/min/1.73m2 (Non-) (test code = 2948143624) eGFR Calculation mL/min/1.73m2 () (test code = 2188630100) INNA (test code = INNA) Association of [...] tests). Lab Interpretation Abnormal (test code = 51682-0) [facility] 11:20:00 Test Item Value Reference Range Interpretation Comments MAGNESIUM (test code = 8169931158) 2.1 mg/dL 1.7-2.4 Lab Interpretation (test code = Normal 78280-3) [facility] Center[facility] Packed RBC (in units), 2 Units 2020-07-04 07:46:55 Test Item Value Reference Range Interpretation Comments Cross Match Result Compatible (test code = 4409) ISBT Blood Type Code (test code = 201900) Unit Blood Type (test O Pos code = 4410) Unit Number (test [id number] code = 4411) Blood Expiration Date & Time (test code = 414840) Status Information Issued (test code = 4412) Product Red Blood Cells Identification (test code = 4413) Product Code (test [id number] Performed at [facility] code = 4414) Laboratory Services - [facility] [address] [place] [id number] Free: [phone] A No. [id number] [facility] WITHOUT [id number] 03:11:00 Test Item Value Reference Range Interpretation Comments WBC (test code = 6690-2) See_Comment [A utomated message] The system [employer] generated this result transmit teja reference range : 4.20 - 10.70 10*3/?L. The reference range was not used to interpret this result as normal/abnormal . RBC (test code = 789-8) See_Comment L [Au tomated message] The system [employer] generated this result transmit teja reference range [...] See_Comment L [Au tomated message] The system [employer] generated this result transmit teja reference range : 150 - 328 10*3/?L. The reference range was not used to interpret this result as normal/abnormal . MPV (test code = 11.6 fL 9.8-13 14614-2) RDW-CV (test code = 17.1 % 12.1-15.4 H 788-0) RDW-SD (test code = 56.9 fL 38.5-51.6 H 99791-3) NRBC x10^3 (test code = See_Comment [Au tomated message] 9795176062) The system [employer] generated this result transmit teja reference range : 10*3/?L. The reference range was not used to interpret this result as normal/abnormal . NRBC/100 WBC (test code See_Comment [Au tomated message] = 4315905316) The system [facility] generated this result transmit teja reference range : 0.0 - 10.0 /100 WBC s. The reference r sae was not used to interpret this result as normal/abnormal . IPF % (test code = 4980051734) Lab Interpretation (test Abnormal code = 21850-0) [facility] WITHOUT [id number] 20:26:00 Test Item Value Reference Range Interpretation Comments WBC (test code = 6690-2) See_Comment [A utomated message] The system [employer] generated this result transmit teja reference range : 4.20 - 10.70 10*3/?L. The reference range was not used to interpret this result as normal/abnormal . RBC (test code = 789-8) See_Comment L [Au tomated message] The system [facility] generated this result transmit teja reference [...] See_Comment L [Au tomated message] The system [facility] generated this result transmit teja reference range : 150 - 328 10*3/?L. The reference range was not used to interpret this result as normal/abnormal . MPV (test code = 12.2 fL 9.8-13 44998-6) RDW-CV (test code = 17.1 % 12.1-15.4 H 788-0) RDW-SD (test code = 55.0 fL 38.5-51.6 H 65970-7) NRBC x10^3 (test code = See_Comment [Au tomated message] 6227994491) The system [facility] generated this result transmit teja reference range : 10*3/?L. The reference range was not used to interpret this result as normal/abnormal . NRBC/100 WBC (test code See_Comment [Au tomated message] = 0740731326) The system [employer] generated this result transmit teja reference range : 0.0 - 10.0 /100 WBC s. The reference r sae was not used to interpret this result as normal/abnormal . IPF % (test code = 9055342733) Lab Interpretation (test Abnormal code = 77046-0) [facility] CenterL[facility] Whole [id number] 17:33:00 Test Item Value Reference Range Interpretation Comments LACTIC ACID (test code = 2.07 mmol/L 0596249796) [facility] CenterType and Screen - ONCE [id number] 16:33:10 Test Item Value Reference Range Interpretation Comments ABO & RH (test code O Positive Performe d at [facility] = 20) [facility] [address] [place] [address] 4Toll Free: [phone] 266CLIA No. [id number] IAT (test code = Negative Performed a t [facility] 1185) [facility] [address] [place], [place] [address] 4Toll Free: [phone] 266CLIA No. [id number] [facility] CenterABORH [id number] 16:22:27 Test Item Value Reference Range Interpretation Comments ABO & RH (test code O Positive Performe d at [facility] = 20) [facility] Blood [address] [place] [phone] 4Toll Free: [phone] 266CLIA No. [id number] [facility] 1 [id number] 16:06:46EXAM: XR CHEST 1 VW HISTORY: s/p cabg COMPARISON: None. FINDINGS: The heart is slightly enlarged butthe mediastinal structures are normal inappearance. The tip of the single pacemaker electrode is in the apex of theright ventricle. The lungs are well expanded and clear. ? Nmmb, Radiant Results Inft User - 07/03/2020 11:07 AM CDTEXAM: XR CHEST 1 VWHISTORY: s/p cabg COMPARISON: None.FINDINGS:The heartis slightly enlarged but the mediastinal structures are normal inappearance. The tip of the single pacemaker electrode is in the apex of theright ventricle. The lungs are well expanded and clear.[facility] CenteraPTT 2020-07-03 15:21:00 Test Item Value Reference Range Interpretation Comments APTT Patient (test code See_Comment L [Au tomated message] = 3173-2) The system [employer] generated this result transmitted ref erence range: 26 - 36 Seconds. The reference range was not used to int erpret this result as normal/abnormal . Lab Interpretation (test Abnormal code = 04555-4) [facility] CenterPROTHROMBIN TIME / [id number] 15:21:00 Test Item Value Reference Range Interpretation Comments PROTIME PATIENT (test See_Comment H [Auto mated message] code = 5964-2) The system [employer] generated this result transmitted ref erence range: 10.1 - 1 2.6 Seconds. The reference range was not used to int erpret this result as normal/abnormal . INR (test code = 6301-6) Nor mal INR <1.1; Warfarin Therap eutic range 2.0 to 3. 0 or 2.5 to 3.5, dep ending upon the indica tions. Lab Interpretation (test Abnormal code = 72302-9) [facility] CenterFIBRINOGEN2020-09-21 15:21:00 Test Item Value Reference Range Interpretation Comments Fibrinogen (test code = 8687660973) 220 mg/dL 167-453 Lab Interpretation (test code = Normal 29032-3) [facility]2020-09-21 15:19:00 Test Item Value Reference Range Interpretation Comments MAGNESIUM (test code = 3587150231) 2.1 mg/dL 1.7-2.4 Lab Interpretation (test code = Normal 61247-9) [facility] CenterPHOSPHORUS2020-09-21 15:19:00 Test Item Value Reference Range Interpretation Comments PHOSPHORUS (test code = 9645210741) 4.1 mg/dL 2.5-5 Lab Interpretation (test code = Normal 48658-9) [facility] CenterCOMP. METABOLIC PANEL (63578)2020-07-03 15:19:00 Test Item Value Reference Range Interpretation Comments NA (test code = 138 mmol/L 135-145 9157064398) K (test code = 4.0 mmol/L 3.5-5 4032189770) CL (test code = 102 mmol/L 98-108 6067941622) CO2 TOTAL (test code = 26 mmol/L 23-31 8181738456) AGAP (test code = 2-16 1729226185) BUN (test code = 36 mg/dL 7-23 H 9344538925) GLUCOSE (test code = 144 mg/dL 70-110 H 5633882087) CREATININE (test code = 1.14 mg/dL 0.6-1.25 5707199961) TOTAL BILI (test code = 1.2 mg/dL 0.1-1.1 H 5106159671) CALCIUM (test code = 8.4 mg/dL 8.6-10.6 L 0097728693) T PROTEIN (test code = 5.9 g/dL 6.3-8.2 L 2857132599) ALBUMIN (test code = 3.6 g/dL 3.5-5 7127977074) ALK PHOS (test code = 27 U/L 34-122 L 7139427165) ALTv (test code = 13 U/L 5-50 1742-6) AST(SGOT) (test code = 20 U/L 13-40 4822643408) eGFR Calculation mL/min/1.73m2 (Non-) (test code = 9947853228) eGFR Calculation mL/min/1.73m2 () (test code = 1474239511) INNA (test code = INNA) Association of [...] tests). Lab Interpretation Abnormal (test code = 29745-2) [facility] WITH [id number] 15:13:00 Test Item Value Reference Range Interpretation Comments WBC (test code = See_Comment [Automated 6690-2) message] The sy stem which generated this result transmitted reference range : 4.20 - 10.70 10*3/?L. The reference range was not used to interpret this result as normal/abnormal . RBC (test code = See_Comment L [Automated 789-8) message] The sy stem which generated this [...] (test code = 54.9 fL 38.5-51.6 H 15729-3) RDW-CV (test code = 16.6 % 12.1-15.4 H 788-0) PLT (test code = See_Comment L [Automated 777-3) message] The sy stem which generated this result transmitted reference range : 150 - 328 10*3/ ?L. The reference r sae was not used to interpret this result as normal/abnormal . MPV (test code = 11.8 fL 9.8-13 74769-0) NRBC/100 WBC (test See_Comment [Automat ed code = 0060684365) message] The system which generated this result transmitted reference range : 0.0 - 10.0 /100 WBCs. The refer ence range was not u sed to interpret th is result as normal/abnormal . NRBC x10^3 (test code See_Comment [Auto mated = 7758443972) message] The s ystem which generated this result transmitted reference range : 10*3/?L. The reference range was not used to interpret this result as normal/abnormal . GRAN MAT (NEUT) % 77.2 % (test code = 770-8) IMM GRAN % (test code 0.80 % = 0456740357) LYMPH % (test code = 9.3 % 736-9) MONO % (test code = 12.1 % 5905-5) EOS % (test code = 0.4 % 713-8) BASO % (test code = 0.2 % 706-2) GRAN MAT x10^3(ANC) 6.45 10*3/uL 1.99-6.95 (test code = 4304565734) IMM GRAN x10^3 (test 0.07 10*3/uL 0-0.06 H code = 7923381198) LYMPH x10^3 (test code 0.78 10*3/uL 1.09-3.23 L = 731-0) MONO x10^3 (test code 1.01 10*3/uL 0.36-1.02 = 742-7) EOS x10^3 (test code = 0.03 10*3/uL 0.06-0.53 L 711-2) BASO x10^3 (test code <0.03 0.01-0.09 = 704-7) Lab Interpretation Abnormal (test code = 46685-7) [facility] CenterLactic Acid Whole [id number] 15:00:00 Test Item Value Reference Range Interpretation Comments LACTIC ACID (test code = 2.86 mmol/L 3844940633) [facility] CenterEXTERNAL CORONAVIRUS [id number] 12:19:00 Test Item Value Reference Range Interpretation Comments External CORONAVIRUS Not Detected Not Detected [facility] COVID-19 (test code = Yue fishman 5765034203) [facility]"
--- NOTE | 2023-02-12 12:02 | RAD REPORT ---
EXAM DESCRIPTION: RAD - Ribs Right - 02/12/2023 11:54 am CLINICAL HISTORY: rib pain COMPARISON: Chest Pa And Lat (2 Views) dated 04/01/2022; Abdomen Pelvis Wo Contrast dated 07/03/2020 FINDINGS: Diffuse osteopenia. No displaced rib fracture is seen. No aggressive rib lesion. Right upp er quadrant calcification noted, likely gallstone.
--- NOTE | 2023-02-12 12:14 | RAD REPORT ---
EXAM DESCRIPTION: RAD - Chest Single View - 02/12/2023 11:56 am CLINICAL HISTORY: CHEST PAIN Chest pain. COMPARISON: Chest Pa And Lat (2 Views) dated 04/01/2022; Chest Single View dated 07/03/2020; Chest Sin gle View dated 06/04/2020; Chest Pa And Lat (2 Views) dated 10/28/2017 FINDINGS: Portable technique limits examination quality. The lungs are emphysematous but grossly clear. The heart is normal in size. No displaced fractures.Si ngle lead pacer/defibrillator device. IMPRESSION: No acute intrathoracic process suspected.
--- NOTE | 2023-02-12 12:21 | ER ---
Nurse's Notes [facility] Name: Jose David Rangel Age: 82 yrs Sex: Male : 1940 Arrival Date: 02/12/2023 Time: 11:18 Bed 18 Private MD: Diagnosis: Chest pain on breathing Presentation: 02/12 11:27 Chief complaint: Patient states: "Friday morning, I turned over and my chest was going ss crunch crunch crunch, like bones. I took my time getting out of bed. Ever since then my chest has been hurting." Denies cough/ fever. Coronavirus screen: Client denies travel out of the [place] in the last 14 days. Ebola Screen: Patient denies exposure to infectious person. Patient denies travel to an Ebola-affected area in the 21 days before illness onset. Initial Sepsis Screen: Does the patient meet any 2 criteria? No. Patient's initial sepsis screen is negative. Does the patient have a suspected source of infection? No. Patient's initial sepsis screen is negative. Risk Assessment: Do you want to hurt yourself or someone else? Patient reports no desire to harm self or others. Onset of symptoms was February 09, 2023. 11:27 Method Of Arrival: Ambulatory ss 11:27 Acuity: ANALILIA 3 ss Triage Assessment: 12:33 Headache History: Denies prior headaches. General: Appears in no apparent distress. ld1 comfortable, Behavior is calm, cooperative, appropriate for age. Pain: Denies pain. EENT: No signs and/or symptoms were reported regarding the EENT system. Neuro: Level of Consciousness is awake, alert, obeys commands, Oriented to person, place, time, situation. Cardiovascular: Capillary refill < 3 seconds Patient's skin is warm and dry. Respiratory: Airway is patent Respiratory effort is even, unlabored. GI: Abdomen is round non-distended. : No signs and/or symptoms were reported regarding the genitourinary system. Derm: No signs and/or symptoms reported regarding the dermatologic system. Musculoskeletal: No signs and/or symptoms reported regarding the musculoskeletal system. 12:33 Pain: Also complains of no other associated symptoms. ld1 12:34 Pain: Pain currently is 7 out of 10 on a pain scale. ld1 12:34 Pain: Pain began suddenly. ld1 Historical: - Allergies: 11:29 Codeine; ss - PMHx: 11:29 Hyperlipidemia; Hypertension; Myocardial infarction; ss - PSHx: 11:29 colonscopy; ss - Immunization history:: Client reports receiving the 2nd dose of the Covid vaccine. - Social history:: Smoking status: Patient reports use of chewing tobacco. Screenin:31 [facility] ED Fall Risk Assessment (Adult) History of falling in the last 3 months, ld1 including since admission No falls in past 3 months (0 pts). Abuse screen: Denies threats or abuse. Denies injuries from another. Nutritional screening: No deficits noted. Tuberculosis screening: No symptoms or risk factors identified. Assessment: 12:31 Reassessment: See triage assessment. ld1 12:31 Reassessment: Patient appears in no apparent distress at this time. No changes from ld1 previously documented assessment. Patient and/or family updated on plan of care and expected duration. Pain level reassessed. Patient is alert, oriented x 3, equal unlabored respirations, skin warm/dry/pink. Vital Signs: 11:27 BP 128 / 58; Pulse 77; Resp 16; Temp 98.5(O); Pulse Ox 96% on R/A; Weight 76.2 kg; ss Height 5 ft. 4 in. ; Pain 0/10; 12:31 BP 125 / 60; Pulse 71; Resp 18; Temp 99.4(O); Pulse Ox 97% on R/A; Weight 83.91 kg; ld1 Height 5 ft. 10 in. ; Pain 0/10; 12:31 Body Mass Index 26.54 (83.91 kg, 177.8 cm) ld1 11:27 Pain Scale: Adult ss 12:31 Pain Scale: Adult ld1 ED Course: 11:21 Patient arrived in ED. am2 11:29 Triage completed. ss 11:29 Arm band placed on left wrist. ss 11:31 Obdulia Kenney FNP-C is PHCP. kb 11:31 Everton Guy MD is Attending Physician. kb 11:47 Erendira Delgado, MINNA is Primary Nurse. ld1 11:55 XRAY Chest (1 view) In Process Unspecified. EDMS 11:55 Ribs Right XRAY In Process Unspecified. EDMS 12:31 Patient has correct armband on for positive identification. Placed in gown. Bed in low ld1 position. Call light in reach. Side rails up X2. nurse monitoring on. Pulse ox on. NIBP on. Door closed. Noise minimized. Warm blanket given. 12:31 No provider procedures requiring assistance completed. Patient did not have IV access ld1 during this emergency room visit. Administered Medications: No medications were administered Medication: 12:34 VIS not applicable for this client. ld1 Outcome: 12:20 Discharge ordered by MD. barros 12:34 Discharged to home ambulatory. ld1 12:34 Condition: stable 12:34 Discharge instructions given to patient, family, Instructed on discharge instructions, follow up and referral plans. Demonstrated understanding of instructions, follow-up care. 12:34 Patient left the ED. ld1 Signatures: Dispatcher [employer] EDMS Obdulia Kenney, ZANA GAYTAN-Lorenza Villagomez RN RN ss Angelika Carlisle Lauren, RN RN ld1 Corrections: (The following items were deleted from the chart) 11:30 11:29 Social history: Smoking status: Patient denies any tobacco usage or history of. ssss
--- NOTE | 2023-02-12 12:21 | EDPHYS ---
Physician Documentation [facility] Name: Jose David Rangel Age: 82 yrs Sex: Male : 1940 Arrival Date: 02/12/2023 Time: 11:18 Bed 18 Private MD: ED Physician Everton Guy HPI: 02/12 12:18 This 82 yrs old Male presents to ER via Ambulatory with complaints of Chest Wall Pain. kb 12:18 The patient or guardian reports chest pain that is located primarily in the anterior kb chest wall, right. Onset: 4 day(s) ago. The pain does not radiate. Associated signs and symptoms: The patient has no apparent associated signs or symptoms. The chest pain is described as aching. Duration: The patient or guardian reports a single episode. Modifying factors: The symptoms are alleviated by nothing. the symptoms are aggravated by activity, cough, deep breath. Severity of pain: At its worst the pain was moderate in the emergency department the pain is unchanged. The patient has not experienced similar symptoms in the past. The patient has not recently seen a physician. Pt reports he rolled over onto his wrist on Friday and felt/heard popping in his right ribs. States he has had pain with inspiration and movement since then so he came to get an x-ray. states he does not want any other studies done, just an x-ray. Historical: - Allergies: 11:29 Codeine; ss - PMHx: 11:29 Hyperlipidemia; Hypertension; Myocardial infarction; ss - PSHx: 11:29 colonscopy; ss - Immunization history:: Client reports receiving the 2nd dose of the Covid vaccine. - Social history:: Smoking status: Patient reports use of chewing tobacco. ROS: 12:18 Constitutional: Negative for fever, chills, and weight loss. kb 12:18 Cardiovascular: Positive for chest pain, of the anterior aspect of right upper chest and right breast. 12:18 All other systems are negative. Exam: 12:18 Constitutional: This is a well developed, well nourished patient who is awake, alert, kb and in no acute distress. Head/Face: Normocephalic, atraumatic. ENT: Moist Mucous membranes Chest/axilla: Normal chest wall appearance and motion. Cardiovascular: Regular rate and rhythm with a normal S1 and S2. No gallops, murmurs, or rubs. No pulse deficits. Respiratory: Respirations even and unlabored. No increased work of breathing. Talking in full sentences Abdomen/GI: Soft, non-tender. No distention Skin: Warm, dry with normal turgor. Normal color. MS/ Extremity: Pulses equal, no cyanosis. Neurovascular intact. Full, normal range of motion. Neuro: Awake and alert, GCS 15, oriented to person, place, time, and situation. Moves all extremities. Normal gait. Vital Signs: 11:27 BP 128 / 58; Pulse 77; Resp 16; Temp 98.5(O); Pulse Ox 96% on R/A; Weight 76.2 kg; ss Height 5 ft. 4 in. ; Pain 0/10; 12:31 BP 125 / 60; Pulse 71; Resp 18; Temp 99.4(O); Pulse Ox 97% on R/A; Weight 83.91 kg; ld1 Height 5 ft. 10 in. ; Pain 0/10; 12:31 Body Mass Index 26.54 (83.91 kg, 177.8 cm) ld1 11:27 Pain Scale: Adult ss 12:31 Pain Scale: Adult ld1 MDM: 11:31 Patient medically screened. kb 11:37 Data reviewed: vital signs, nurses notes. Test considered but Not performed: EKG: EKG kb considered, but pt refuses at this time. States he just came for an x-ray. X-ray: cbc, cmp, bnp, and trop considered but pt does not want anything done except an x-ray. 12:18 Differential diagnosis:. kb 12:20 Differential diagnosis: chest wall pain, costochondritis, pleurisy, rib fracture. kb Counseling: I had a detailed discussion with the patient and/or guardian regarding: the historical points, exam findings, and any diagnostic results supporting the discharge/admit diagnosis, radiology results, the need for outpatient follow up, a family practitioner, to return to the emergency department if symptoms worsen or persist or if there are any questions or concerns that arise at home. 02/12 11:31 Order name: XRAY Chest (1 view); Complete Time: 12:17 kb 02/12 11:34 Order name: Ribs Right XRAY; Complete Time: 12:13 ss 02/12 11:31 Order name: EKG; Complete Time: 11:32 kb Administered Medications: No medications were administered Disposition Summary: 02/12/23 12:20 Discharge Ordered Location: Home kb Condition: Stable kb Diagnosis - Chest pain on breathing kb Followup: kb - With: Emergency Department - When: As needed - Reason: Worsening of condition Followup: kb - With: Private Physician - When: 2 - 3 days - Reason: Recheck today's complaints, Continuance of care, Re-evaluation by your physician Discharge Instructions: - Discharge Summary Sheet kb - Chest Wall Pain, [id number] kb Forms: - Medication Reconciliation Form kb - Thank You Letter kb - Antibiotic Education kb - Prescription Opioid Use kb Signatures: Dispatcher [employer] EDObdulia Carr FNP-C FNP-Lorenza Villagomez RN RN ss Corrections: (The following items were deleted from the chart) 11:30 11:29 Social history: Smoking status: Patient denies any tobacco usage or history of. ssss 11:36 11:31 Cardiac monitoring ordered. kb kb 11:36 11:31 IV Saline Lock ordered. kb kb 11:36 11:31 Oxygen Per Protocol ordered. kb kb 11:37 11:31 EKG - Nurse/Tech ordered. kb kb 11:37 11:31 Labs collected and sent ordered. kb kb 11:37 11:31 O2 Sat Monitoring ordered. kb kb
[2023-02-12 12:43] VITALS: BP 128/58; TEMP 98.5; O2SAT 96
== END 2023-02-12 12:34 | disposition home or self-care (01) ==
LOC: ER 11:18
DX: R07.1 Chest pain on breathing (principal); I10 Essential (primary) hypertension; I25.2 Old myocardial infarction; Z88.5 Allergy status to narcotic agent
CPT/HCPCS: 71045; 99284

== ENCOUNTER → 2023-12-30 | Emergency (ER) | payer OTHER ==
[~2023-12-30] MED LIST: LIDOCAINE 1% MPF 5 ML VIAL ONE
--- NOTE | 2023-12-30 09:09 | ER ---
Nurse's Notes [facility] Name: Jose David Rangel Age: 83 yrs Sex: Male : 1940 Arrival Date: 12/30/2023 Time: 07:51 Bed 16 Private MD: Diagnosis: Laceration without foreign body of right middle finger without damage to nail Presentation: 12/29 08:04 Chief complaint: Patient states: Pinched R hand 3rd digit in a chair while sitting last ll1 night (10 PM). Laceration to R hand 3rd digit. Bleeding controlled, band aid in place. Coronavirus screen: Vaccine status: Patient reports receiving the 2nd dose of the covid vaccine. Client denies travel out of the [place] in the last 14 days. At this time, the client does not indicate any symptoms associated with coronavirus-19. Ebola Screen: Patient denies travel to an Ebola-affected area in the 21 days before illness onset. Initial Sepsis Screen: Does the patient meet any 2 criteria? No. Patient's initial sepsis screen is negative. Does the patient have a suspected source of infection? No. Patient's initial sepsis screen is negative. Risk Assessment: Do you want to hurt yourself or someone else? Patient reports no desire to harm self or others. Onset of symptoms was December 29, 2023. 08:04 Method Of Arrival: Ambulatory ll1 08:04 Acuity: ANALILIA 4 ll1 Triage Assessment: 08:07 General: Appears in no apparent distress. Behavior is calm, cooperative, appropriate ll1 for age. Pain: Denies pain. Derm: laceration to R hand 3rd digit. Musculoskeletal: Circulation, motion, and sensation intact. Capillary refill < 3 seconds. Injury Description: Laceration. Historical: - Allergies: 07:57 Codeine; ll1 - PMHx: 07:57 Hyperlipidemia; Hypertension; Myocardial infarction; ll1 - PSHx: 07:57 colonscopy; ll1 - Immunization history:: Adult Immunizations up to date. - Social history:: Smoking status: Patient/guardian denies using tobacco. - Family history:: not pertinent. - Hospitalizations: : No recent hospitalization is reported. Screenin:29 [facility] ED Fall Risk Assessment (Adult) History of falling in the last 3 months, kc6 including since admission No falls in past 3 months (0 pts) Confusion or Disorientation No (0 pts) Intoxicated or Sedated No (0 pts) Impaired Gait Yes (1 pt) Mobility Assist Device Used Yes (1 pt) Altered Elimination No (0 pt) Score/Fall Risk Level 0 - 2 = Low Risk. Abuse screen: Denies threats or abuse. Denies injuries from another. Nutritional screening: No deficits noted. Tuberculosis screening: No symptoms or risk factors identified. Assessment: 08:29 General: Appears in no apparent distress. comfortable, well groomed, well developed, kc6 Behavior is calm, cooperative, appropriate for age. Pain: Complains of pain in right hand. Neuro: Level of Consciousness is awake, alert, obeys commands, Oriented to person, place, time, situation, Appropriate for age. Cardiovascular: Capillary refill < 3 seconds. Respiratory: Airway is patent Trachea midline Respiratory effort is even, unlabored, Respiratory pattern is regular, symmetrical. GI: No signs and/or symptoms were reported involving the gastrointestinal system. : No signs and/or symptoms were reported regarding the genitourinary system. EENT: No signs and/or symptoms were reported regarding the EENT system. Derm: Skin is intact, is healthy with good turgor, Skin is pink, warm \T\ dry. Musculoskeletal: No signs and/or symptoms reported regarding the musculoskeletal system. Circulation, motion, and sensation intact. Capillary refill < 3 seconds, Range of motion: intact in all extremities. Injury Description: Laceration sustained to palmar aspect of distal phalanx of right ring finger is clean, 0.5 to 2.5 cm long, not bleeding, was sustained 1 day ago. no active bleeding noted at this time. 09:20 Reassessment: No changes from previously documented assessment. Patient and/or family ll1 updated on plan of care and expected duration. Pain level reassessed. 09:20 Musculoskeletal: Circulation, motion, and sensation intact. Capillary refill < 3 ll1 seconds. Vital Signs: 08:04 BP 157 / 67; Pulse 74; Resp 17; Temp 97.1; Pulse Ox 95% ; Pain 0/10; ll1 09:20 BP 151 / 61; Pulse 71; Resp 17; Pulse Ox 96% on R/A; Pain 0/10; ll1 08:04 Pain Scale: Adult ll1 09:20 Pain Scale: Adult ll1 ED Course: 07:55 Patient arrived in ED. rg4 07:57 Chi Rodrigez MD is Attending Physician. rn 07:57 Arm band placed on Patient placed in an exam room, on a stretcher. ll1 07:59 Misty Dia, RN is Primary Nurse. kc6 08:07 Triage completed. ll1 08:29 Patient has correct armband on for positive identification. Bed in low position. Call kc6 light in reach. Side rails up X 1. Client placed on continuous cardiac and pulse oximetry monitoring. NIBP monitoring applied. 08:29 Patient maintains SpO2 saturation greater than 95% on room air. kc6 09:20 Dressings: Band aid x 1 palmar aspect of distal phalanx of right ring finger. ll1 09:21 Provided Education on: Wound care, sutures out in 10-14 days.. ll1 09:21 No provider procedures requiring assistance completed. Patient did not have IV access ll1 during this emergency room visit. Administered Medications: 08:52 Drug: Lidocaine Infiltration (1 %) 1 vials 5 ml Infiltration once; to bedside {Note: kc6 right hand.} Volume: 5 ml; Route: Infiltration; 09:21 Follow up: Response: No adverse reaction; Pain is decreased ll1 Medication: 09:21 VIS not applicable for this client. ll1 Outcome: :09 Discharge ordered by . rn 09:21 Patient left the ED. ll1 09:21 Discharged to home ambulatory, ll1 09:21 Condition: stable 09:21 Discharge instructions given to patient, Instructed on discharge instructions, follow up and referral plans. wound care, Demonstrated understanding of instructions, follow-up care, wound care, Signatures: Chi Rodrigez MD MD rn Garcia, Rubi rg4 Yashira Steele RN RN ll1 Misty Dia, MINNA RN kc6
--- NOTE | 2023-12-30 09:10 | EDPHYS ---
Physician Documentation [facility] Name: Jose David Rangel Age: 83 yrs Sex: Male : 1940 Arrival Date: 12/30/2023 Time: 07:51 Bed 16 Private MD: ED Physician Chi Rodrigez HPI: 12/29 08:07 This 83 yrs old Male presents to ER via Ambulatory with complaints of Finger Laceration.rn 08:07 The patient has a laceration related to:. The laceration(s) is(are) located on the rn right hand. Onset: The symptoms/episode began/occurred last night. The patient has not experienced similar symptoms in the past. Patient reports moving furniture last night, chair, pinched right distal middle finger and sustained a small laceration. Has not stopped bleeding completely so came in for possible stitches. States that tetanus shot was 3 years ago.. Historical: - Allergies: 07:57 Codeine; ll1 - PMHx: 07:57 Hyperlipidemia; Hypertension; Myocardial infarction; ll1 - PSHx: 07:57 colonscopy; ll1 - Immunization history:: Adult Immunizations up to date. - Social history:: Smoking status: Patient/guardian denies using tobacco. - Family history:: not pertinent. - Hospitalizations: : No recent hospitalization is reported. ROS: 08:07 Constitutional: Negative for fever, chills, and weight loss, MS/Extremity: Positive for rn right middle finger laceration Exam: 08:07 Constitutional: This is a well developed, well nourished patient who is awake, alert, rn and in no acute distress. Drinking coffee as we speak MS/ Extremity: Pulses equal, no cyanosis. Neurovascular intact. Full, normal range of motion. Equal circumference. 1 cm superficial laceration to distal right middle finger. Slow bleeding noted. Vital Signs: 08:04 BP 157 / 67; Pulse 74; Resp 17; Temp 97.1; Pulse Ox 95% ; Pain 0/10; ll1 09:20 BP 151 / 61; Pulse 71; Resp 17; Pulse Ox 96% on R/A; Pain 0/10; ll1 08:04 Pain Scale: Adult ll1 09:20 Pain Scale: Adult ll1 Laceration: 09:06 Wound Repair of 1.5cm ( 0.6in ) subcutaneous laceration to right 3rd finger. Distal rn neuro/vascular/tendon intact. Anesthesia: Wound infiltrated with 1 mls of 1% lidocaine. Wound prep: Extensive cleansing by nurse, Wound irrigation by nurse. Skin closed with 2 4-0 Prolene using interrupted sutures and sterile technique. Dressed with 4x4's, bandaid. Patient tolerated well. MDM: 07:57 Patient medically screened. rn 09:06 Differential diagnosis: superficial laceration. Data reviewed: vital signs, nurses rn notes, and as a result, I will discharge patient. Counseling: I had a detailed discussion with the patient and/or guardian regarding the historical points, exam findings, and any diagnostic results supporting the discharge/admit diagnosis, the need for outpatient follow up, to return to the emergency department if symptoms worsen or persist or if there are any questions or concerns that arise at home. Response to treatment: the patient's symptoms have markedly improved after treatment, and as a result, I will discharge patient. Special discussion: I discussed with the patient/guardian in detail that at this point there is no indication for admission to the hospital. It is understood, however, that if the symptoms persist or worsen the patient needs to return immediately for re-evaluation. 12/29 08:07 Order name: Dressing - Wound; Complete Time: 08:11 rn 12/29 08:07 Order name: Gloves, Sterile; Complete Time: 08:11 rn 12/29 08:07 Order name: Prolene, Sutures; Complete Time: 08:11 rn 12/29 08:07 Order name: Setup Suture Tray; Complete Time: 08:11 rn 12/29 08:07 Order name: Wound Care; Complete Time: 08:11 rn Administered Medications: 08:52 Drug: Lidocaine Infiltration (1 %) 1 vials 5 ml Infiltration once; to bedside {Note: kc6 right hand.} Volume: 5 ml; Route: Infiltration; 09:21 Follow up: Response: No adverse reaction; Pain is decreased ll1 Disposition Summary: 12/30/23 09:09 Discharge Ordered Notes: Location: Home rn Problem: new rn Symptoms: have improved rn Condition: Stable rn Diagnosis - Laceration without foreign body of right middle finger without damage to nail rn Followup: rn - With: Emergency Department - When: 10 - 14 days - Reason: Recheck today's complaints, Staple/Suture removal, Re-evaluation by your physician Discharge Instructions: - Discharge Summary Sheet rn - Laceration Care, Adult rn Forms: - Medication Reconciliation Form rn - Thank You Letter rn - Antibiotic patternmaker hand - Prescription Opioid Use rn - Patient Portal Instructions rn - Leadership Thank You Letter rn Signatures: Chi Rodrigez MD MD rn Lewis, Lynsay RN RN ll1 Misty Dia RN RN kc6
[2023-12-30 09:55] VITALS: BP 157/67; TEMP 97.1; O2SAT 95
== END ==
LOC: ER 07:51
PROC: 0HQFXZZ Repair Right Hand Skin, External Approach (ICD-10-PCS; principal; 2023-12-30)
DX: S61.212A Laceration without foreign body of right middle finger without damage to nail, initial encounter (principal); Z88.5 Allergy status to narcotic agent
CPT/HCPCS: 12001; J2001

== ENCOUNTER 2024-05-09 07:56 | Inpatient (IN) | payer OTHER ==
[2024-05-09] MEDS ORDERED: ALBUTEROL 2.5 MG/3 ML NEB SOL ONE (08:20)
[2024-05-09] MEDS ORDERED: IPRATROPIUM BROM 0.5MG/2.5ML ONE (08:21)
[2024-05-09 08:45] LABS: Absolute Eosinophils 0.2 K/uL (0-0.5); Absolute Lymphocytes (CBC) 0.4 K/uL (0.7-4.9); Absolute Monocytes 4.7 K/uL (0.1-1.3); Absolute Neutrophil 3.3 K/uL (1.8-8.0); Basophils % 0.4 % (0-1.3); Eosinophils % 1.8 % (0-4.4); Hematocrit 40.6 % (39.6-49.0); Hemoglobin 13.5 g/dL (13.6-17.9); MCH 34.6 pg (27.0-35.0); MCHC 33.3 g/dL (32.0-36.0); MPV 11.7 fL (7.6-11.3); Monocytes % 54.5 % (3.3-12.3); Neutrophils % 38.3 % (41.7-73.7); Nucleated Red Blood Cells % 0.4 % (0-0); Platelets 26 thou/uL (152-406); RBC Red Blood Cell Count 3.91 M/uL (4.33-5.43)
[2024-05-09 09:03] LABS: Anion Gap 8.1 mEq/L (5.0-15.0); Potassium 3.1 mEq/L (3.5-5.1)
[2024-05-09 09:05] LABS: Troponin High Sensitivity 87.4 pg/mL (<58.9)
[2024-05-09 09:23] LABS: INFLUENZA A NAA NEGATIVE (NEGATIVE); RESPIRATORY SYNCYTIAL VIR NAA NEGATIVE (NEGATIVE); SARS-COV-2 RT PCR NEGATIVE (NEGATIVE)
[2024-05-09 09:24] LABS: Differential Total Cells Count 100; Segmented Neutrophils 45 % (40-80)
[2024-05-09 09:25] LABS: Atypical Lymphocytes 13 %; Eosinophils 2 % (0-3); Lymphocytes 36 % (15-42); Monocytes 3 % (0-10); Platelet Estimate DECR
[2024-05-09 09:27] LABS: Blood Morphology Comment NOT SEEN (NOT SEEN)
[2024-05-09] MEDS ORDERED: NA CHLORIDE 0.9% 250 ML ONE (09:31)
[2024-05-09] MEDS ORDERED: POTASSIUM CL SA 10 MEQ TAB PO ONE (09:31)
[2024-05-09] MEDS ORDERED: KCL 20 MEQ/100 mL IVPB 100 ML IV ONE (09:31)
[2024-05-09] MEDS ORDERED: FUROSEMIDE 40 MG/4 ML VIAL ONE (09:35)
--- NOTE | 2024-05-09 09:37 | ER ---
Nurse's Notes [facility] Name: Jose David Rangel Age: 83 yrs Sex: Male : 1940 Arrival Date: 05/09/2024 Time: 07:56 Bed 8 Private MD: Diagnosis: Heart failure, unspecified;Hypokalemia Presentation: 05/09 08:16 Chief complaint: Patient states: cough, SOB. chest congestion, no fever or chills, iw started Friday , has been having general weakness X 3 weeks. Coronavirus screen: Client presents with at least one sign or symptom that may indicate coronavirus-19. Ebola Screen: No symptoms or risks identified at this time. Initial Sepsis Screen: Does the patient meet any 2 criteria? No. Patient's initial sepsis screen is negative. Does the patient have a suspected source of infection? No. Patient's initial sepsis screen is negative. Risk Assessment: Do you want to hurt yourself or someone else? Patient reports no desire to harm self or others. Onset of symptoms was April 2024. 08:16 Method Of Arrival: Wheelchair iw 08:16 Acuity: ANALILIA 3 iw Historical: - Allergies: 08:17 Codeine; iw - Home Meds: 08:18 pravastatin 80 mg oral tablet daily [Active]; tamsulosin 0.4 mg oral capsule daily iw [Active]; Eliquis 2.5 mg oral tablet 2 times per day [Active]; amiodarone 200 mg Oral tablet 0.5 tabs daily [Active]; carvedilol 25 mg oral tablet 2 times per day [Active]; omeprazole 20 mg Oral Tablet,disintegrating,delayed release daily [Active]; digoxin 125 mcg (0.125 mg) Oral tablet daily [Active]; furosemide 40 mg Oral tablet daily [Active]; - PMHx: 08:17 Hyperlipidemia; Hypertension; Myocardial infarction; Atrial fibrillation; Congestive iw heart failure; - PSHx: 08:17 colonscopy; iw 08:58 CABG; Appendectomy; defibrillator; ankle; iw - Immunization history:: Adult Immunizations up to date. - Infectious Disease History:: Denies. - Social history:: Smoking status: Patient reports the use of cigarette tobacco products, Patient/guardian denies using tobacco, but has a distant history of tobacco abuse. Screenin:38 [facility] Fall Risk Assessment (Adult) History of falling in the last 3 months, ko1 including since admission No falls in past 3 months (0 pts) Confusion or Disorientation No (0 pts) Intoxicated or Sedated No (0 pts) Impaired Gait Yes (1 pt) Mobility Assist Device Used Yes (1 pt) Altered Elimination No (0 pt) Score/Fall Risk Level 0 - 2 = Low Risk Oriented to surroundings, Maintained a safe environment, Educated pt \T\ family on fall prevention, incl call for assistance when getting out of bed, Assessed \T\ reinforced patient's understanding of fall precautions, Provided non-skid footwear, Hourly rounding (assess needs \T\ fall precautionary measures) done. Abuse screen: Denies threats or abuse. Denies injuries from another. Nutritional screening: No deficits noted. Tuberculosis screening: No symptoms or risk factors identified. Assessment: 08:54 General: Appears in no apparent distress. Behavior is calm, cooperative. Neuro: Level iw of Consciousness is awake, alert, obeys commands, Oriented to person, place, time, situation, Moves all extremities. Full function. Cardiovascular: Rhythm is sinus bradycardia. Respiratory: Airway is patent Respiratory effort is even, Breath sounds are coarse bilaterally. GI: Abdomen is flat, non-distended. Derm: Skin is fragile, is thin. Musculoskeletal: Range of motion: intact in all extremities. 10:41 Reassessment: Patient appears in no apparent distress at this time. Patient and/or iw family updated on plan of care and expected duration. Pain level reassessed. Patient is alert, oriented x 3, equal unlabored respirations, skin warm/dry/pink. Pain: Denies pain. Vital Signs: 08:16 BP 125 / 51; Pulse 51; Resp 19; Pulse Ox 98% on R/A; iw 09:08 BP 118 / 88; Pulse 42; Resp 24; Pulse Ox 95% ; ko1 10:41 BP 119 / 62; Pulse 43; Resp 21; Pulse Ox 98% on R/A; iw ED Course: 08:00 Patient arrived in ED. ts1 08:02 John Weinstein MD is Attending Physician. ec2 08:16 Yokasta Otero, RN is Primary Nurse. iw 08:17 Triage completed. iw 08:18 Arm band placed on. iw 08:28 COVID-19/FLU A+B/RSV Sent. ko1 08:34 EKG done, by ED staff, reviewed by John Weinstein MD. em1 08:36 Basic Metabolic Panel Sent. ko1 08:36 CBC with Diff Sent. ko1 08:36 NT PRO-BNP Sent. ko1 08:36 Troponin HS Sent. ko1 08:38 Patient has correct armband on for positive identification. Allergy band placed. Fall ko1 risk band placed. Placed in gown. Bed in low position. Call light in reach. Side rails up X2. Provided Education on: labs, tests, meds. Client placed on continuous cardiac and pulse oximetry monitoring. NIBP monitoring applied. metal gauge maker on. Door closed. Noise minimized. Lights dimmed. Warm blanket given. Pillow given. 08:38 Initial lab(s) drawn, by me, sent to lab. COVID swab sent to lab. Flu and/or RSV swab ko1 sent to lab. Initial Neb Treatment Given as ordered Unable to instruct patient due to physical barriers, family/caregiver was instructed on procedure. Inserted saline lock: 20 gauge in right antecubital area, using aseptic technique. Blood collected. Flushed with 10 mL NS. 09:20 XRAY Chest (1 view) In Process Unspecified. EDMS 09:35 Víctor Hughes is Hospitalizing Provider. ec2 10:00 Assisted with urinal. ko1 11:00 Assisted to bedside commode. ko1 11:00 No provider procedures requiring assistance completed. Patient admitted, IV remains in ko1 place. Administered Medications: 08:27 Drug: DuoNeb Nebulize (3:1) (2.5 mg - 0.5 mg) 3 ml Nebulizer once Route: Nebulizer; ko1 09:00 Follow up: Response: No adverse reaction ko1 09:09 Follow up: Response: No adverse reaction ko1 09:46 Drug: Potassium Chloride PO 40 mEq PO once Route: PO; ko1 11:42 Follow up: Response: No adverse reaction ko1 09:46 Drug: Potassium Chloride IV 20 mEq IV at calculated rate once; administer over 1-2 ko1 hours Route: IV; Rate: calculated rate; Site: right antecubital; 11:42 Follow up: Response: No adverse reaction; IV Status: Completed infusion; IV Intake: ko1 100ml 09:46 Drug: Furosemide IVP 40 mg IVP once; give over 2 minutes Route: IVP; Site: right ko1 antecubital; 10:01 Follow up: Response: No adverse reaction ko1 Medication: 08:55 VIS not applicable for this client. iw Intake: 11:42 IV: 100ml; Total: 100ml. ko1 Outcome: 09:36 Decision to Hospitalize by Provider. ec2 11:00 Admitted to Tele accompanied by tech, via wheelchair, room 220, with chart, ko1 11:00 Condition: stable 11:00 Instructed on the need for admit, 12:29 Patient left the ED. iw Signatures: Dispatcher [employer] Yokasta Funk RN RN iw Martinez, Eric em1 Joan Cifuentes RN RN ko1 Susy Santillan, PAS PAS ts1 John Weinstein MD MD ec2 Corrections: (The following items were deleted from the chart) 08:18 08:17 PMHx: Congenital heart disease; iw iw
--- NOTE | 2024-05-09 09:37 | EDPHYS ---
Physician Documentation [facility] Name: Jose David Rangel Age: 83 yrs Sex: Male : 1940 Arrival Date: 05/09/2024 Time: 07:56 Bed 8 Private MD: ED Physician John Weinstein HPI: 05/09 08:21 This 83 yrs old Male presents to ER via Wheelchair with complaints of Cough, ec2 Shortness Of Breath. 08:21 Patient arrives today for evaluation of cough symptoms. Patient has been having cough ec2 ongoing for the past several days. No significant difficulty breathing, reported history of CHF, also uses an inhaler however denies being diagnosed with COPD or asthma. Patient reports no issues with vomiting or diarrhea.. Historical: - Allergies: 08:17 Codeine; iw - Home Meds: 08:18 pravastatin 80 mg oral tablet daily [Active]; tamsulosin 0.4 mg oral capsule daily iw [Active]; Eliquis 2.5 mg oral tablet 2 times per day [Active]; amiodarone 200 mg Oral tablet 0.5 tabs daily [Active]; carvedilol 25 mg oral tablet 2 times per day [Active]; omeprazole 20 mg Oral Tablet,disintegrating,delayed release daily [Active]; digoxin 125 mcg (0.125 mg) Oral tablet daily [Active]; furosemide 40 mg Oral tablet daily [Active]; - PMHx: 08:17 Hyperlipidemia; Hypertension; Myocardial infarction; Atrial fibrillation; Congestive iw heart failure; - PSHx: 08:17 colonscopy; iw 08:58 CABG; Appendectomy; defibrillator; ankle; iw - Immunization history:: Adult Immunizations up to date. - Infectious Disease History:: Denies. - Social history:: Smoking status: Patient reports the use of cigarette tobacco products, Patient/guardian denies using tobacco, but has a distant history of tobacco abuse. ROS: 08:21 Constitutional: as per hpi ec2 Exam: 08:21 Constitutional: GEN: NAD Head: atraumatic Eyes: EOMI Ears: External ears are ec2 normal. CV: regular rate LUNGS: no respiratory distress, no wheezes, no rales, no rhonchi ABD: non-distended SKIN: no evidence of rashes MSK: no evidence of trauma NEURO: moves all extremities equally Vital Signs: 08:16 BP 125 / 51; Pulse 51; Resp 19; Pulse Ox 98% on R/A; iw 09:08 BP 118 / 88; Pulse 42; Resp 24; Pulse Ox 95% ; ko1 10:41 BP 119 / 62; Pulse 43; Resp 21; Pulse Ox 98% on R/A; iw MDM: 08:10 Patient medically screened. ec2 08:21 Data reviewed: vital signs. ED course: Patient arrives today for evaluation of cough ec2 and cold symptoms. Examination remarkable for well-appearing nontoxic individual is otherwise in no acute distress with a reassuring examination. Will obtain lab work, chest x-ray, viral swab. Differential includes pneumonia, viral infection, volume overload.. 09:25 ED course: Metabolic profile shows renal dysfunction with a creatinine 1.52, GFR 45, ec2 slight hypokalemia at 3.1. CBC shows slight anemia. Thrombocytopenia noted at 26. Further discussion with family member indicates that he has baseline thrombocytopenia and usually is in approximately 20s to 30s. BNP elevated at 10,000, troponin with slight elevation 87.4. Chest x-ray independently reviewed and interpreted by me, shows cardiomegaly, vascular congestion, questionable trace left pleural effusion. Will give the patient potassium supplementation, give the patient Lasix. Will admit for volume overload. . 09:35 ED course: Discussed the case with hospitalist, pending admission.. ec2 10:38 ED course: Ultimately patient would benefit from admission given his dyspnea, patient ec2 already on Lasix at home, is noted to be hypokalemic, would benefit from inpatient diuresis.. 05/09 08:18 Order name: CBC with Diff ec2 05/09 09:26 Order name: Manual Differential EDMS 05/09 08:18 Order name: Basic Metabolic Panel; Complete Time: 09:23 ec2 05/09 08:18 Order name: NT PRO-BNP; Complete Time: 09:23 ec2 05/09 08:18 Order name: Troponin HS; Complete Time: 09:23 ec2 05/09 08:18 Order name: COVID-19/FLU A+B/RSV; Complete Time: 09:25 ec2 05/09 11:31 Order name: Urinalysis w/ reflexes EDMS 05/09 11:31 Order name: Basic Metabolic Panel EDGA 05/09 11:31 Order name: Basic Metabolic Panel EDMS 05/09 11:31 Order name: Basic Metabolic Panel EDMS 05/09 11:31 Order name: Basic Metabolic Panel EDMS 05/09 11:31 Order name: Basic Metabolic Panel EDMS 05/09 11:31 Order name: Basic Metabolic Panel EDMS 05/09 11:31 Order name: CBC with Automated Diff EDMS 05/09 11:31 Order name: CBC with Automated Diff EDMS 05/09 11:31 Order name: CBC with Automated Diff EDMS 05/09 11:31 Order name: CBC with Automated Diff EDMS 05/09 11:31 Order name: CBC with Automated Diff EDMS 05/09 11:31 Order name: CBC with Automated Diff EDMS 05/09 11:31 Order name: Lipid Profile EDMS 05/09 11:31 Order name: Lipid Profile EDMS 05/09 11:31 Order name: Magnesium EDMS 05/09 11:31 Order name: Magnesium EDMS 05/09 11:31 Order name: Magnesium EDMS 05/09 11:31 Order name: Magnesium EDMS 05/09 11:31 Order name: Magnesium EDMS 05/09 11:31 Order name: Magnesium EDMS 05/09 11:31 Order name: Phosphorus EDMS 05/09 11:31 Order name: Phosphorus EDMS 05/09 11:31 Order name: Phosphorus EDMS 05/09 11:31 Order name: Phosphorus EDMS 05/09 11:31 Order name: Phosphorus EDMS 05/09 11:31 Order name: Phosphorus EDMS 05/09 11:31 Order name: Troponin High Sensitivity EDMS 05/09 11:31 Order name: Troponin High Sensitivity EDMS 05/09 11:31 Order name: Troponin High Sensitivity EDMS 05/09 11:33 Order name: Digoxin Level EDMS 05/09 08:18 Order name: XRAY Chest (1 view); Complete Time: 09:40 ec2 05/09 11:36 Order name: Echo with Doppler EDMS 05/09 08:18 Order name: Cardiac monitoring; Complete Time: 08:19 ec2 05/09 08:18 Order name: EKG - Nurse/Tech; Complete Time: 08:34 ec2 05/09 08:18 Order name: IV Saline Lock; Complete Time: 08:36 ec2 05/09 08:18 Order name: Labs collected and sent; Complete Time: 08:36 ec2 05/09 08:18 Order name: O2 Per Protocol; Complete Time: 08:19 ec2 05/09 08:18 Order name: O2 Sat Monitoring; Complete Time: 08:19 ec2 Administered Medications: 08:27 Drug: DuoNeb Nebulize (3:1) (2.5 mg - 0.5 mg) 3 ml Nebulizer once Route: Nebulizer; ko1 09:00 Follow up: Response: No adverse reaction ko1 09:09 Follow up: Response: No adverse reaction ko1 09:46 Drug: Potassium Chloride PO 40 mEq PO once Route: PO; ko1 11:42 Follow up: Response: No adverse reaction ko1 09:46 Drug: Potassium Chloride IV 20 mEq IV at calculated rate once; administer over 1-2 ko1 hours Route: IV; Rate: calculated rate; Site: right antecubital; 11:42 Follow up: Response: No adverse reaction; IV Status: Completed infusion; IV Intake: ko1 100ml 09:46 Drug: Furosemide IVP 40 mg IVP once; give over 2 minutes Route: IVP; Site: right ko1 antecubital; 10:01 Follow up: Response: No adverse reaction ko1 Disposition Summary: 05/09/24 09:36 Hospitalization Ordered Notes: Hospitalization Status: Inpatient Admission ec2 Provider: Víctor Hughes ec2 [facility] Condition: Stable ec2 Problem: an acute exacerbation ec2 Symptoms: have improved ec2 Bed/Room Type: Standard ec2 Room Assignment: 220(05/09/24 11:36) eb Diagnosis - Heart failure, unspecified ec2 - Hypokalemia ec2 Forms: - Medication Reconciliation Form ec2 - SBAR form ec2 - Leadership Thank You Letter ec2 Signatures: Dispatcher [employer] Yokasta Funk RN RN iw Kathy Murphy Kathy, RN RN ko1 John Weinstein MD MD ec2 Corrections: (The following items were deleted from the chart) 08:18 08:17 PMHx: Congenital heart disease; [facility] 08:19 08:19 BASIC METABOLIC PANEL+C.LAB.BRZ ordered. EDMS EDMS 08:19 08:19 CBC+H.LAB.BRZ ordered. EDMS EDMS 08:19 08:19 PROBNP+C.LAB.BRZ ordered. EDMS EDMS 08: 08:19 Troponin High Sensitivity+C.LAB.BRZ ordered. EDMS EDMS 08: 08:19 COVID-19/FLU A+B/RSV+MOL.LAB.BRZ ordered. EDMS EDMS 08: 08:19 Chest Single View+RAD.RAD.BRZ ordered. EDMS EDMS 11:31 11:31 Digoxin Level ordered. EDMS EDMS 11:36 09:36 ec2 eb
--- NOTE | 2024-05-09 09:39 | RAD REPORT ---
EXAM DESCRIPTION: RADChest Single View05/09/2024 9:18 am CLINICAL HISTORY: DYSPNEA COMPARISON: Chest Single View dated 02/12/2023; Chest Pa And Lat (2 Views) dated 04/01/2022; Chest Sing le View dated 07/03/2020; Chest Single View dated 06/04/2020; Ribs Right dated 02/12/2023 TECHNIQUE: Portable AP view of the chest. FINDINGS: Developing left basilar patchy airspace opacity. No pneumothorax or effusion. Mild cardio megaly and sequelae of median sternotomy. Left chest wall pacer in place. IMPRESSION: Developing left basilar airspace opacity, may reflect atelectasis or pneumonia. Mild car diomegaly
--- NOTE | 2024-05-09 10:47 | P.HP ---
Certification for Inpatient Patient admitted to: Observation With expected LOS: <2 Midnights Practitioner: I am a practitioner with admitting privileges, knowledge of patient current condition, hospital course, and medical plan of care. Services: Services provided to patient in accordance with Admission requirements found in Title 42 Section 412.3 of the Code of Federal Regulations Patient History Date of Service: 05/09/24 Reason for admission: NSTEMI, CHF exacerbation History of Present Illness: Zak Rangel is an 83 year old male with Pmhx hypertension, hyperlipidemia, con gestive heart failure, atrial fibrillation, defibrillator/pacer, OR (s/p CABG), who presents to the ED with chief complaint of shortness of breath and coughing for the past several days. His is at bedside and is good historian and reports he is compliant with his medications and she usually helps him manage his medications. She reports he is seeing a occupational therapist per diem for his thrombocytopenia and was started on B12, a diagnosis has not been determined yet. On evaluation, his lung sounds have expiratory gurgles, he is confused, the last shock from the defibrillator was almost a year ago, his heart his paced intermittently. Initial vital BP 125 / 51; Pulse 51; Resp 19; Pulse Ox 98% on R/A Laboratory evaluation significant for BNP 10,205, troponin 87.4, potassium 3.1, platelets 26, Bun/creatinine 32/1.52, GFR 45, serum glucose 141 Chest x-ray report "Developing left basilar airspace opacity, may reflect atelectasis or pneumonia. Mild cardiomegal" Zak will be admitted to hospitalist service for further evaluation and treatment of fluid volume overload secondary to CHF exacerbation. Allergies codeine Allergy (Verified 06/24/18 07:12) Unknown Home Medications: Amiodarone HCl 100 mg PO DAILY 05/09/24 Apixaban [Eliquis] 2.5 mg PO BID 05/09/24 Carvedilol [Coreg] 25 mg PO DAILY 05/09/24 Digoxin [Lanoxin] 0.125 mg PO DAILY 05/09/24 Furosemide 40 mg PO DAILY 05/09/24 Omeprazole 20 mg PO DAILY 05/09/24 Pravastatin [Pravachol*] 80 mg PO DAILY 05/09/24 Tamsulosin [Flomax*] 0.4 mg PO BEDTIME 05/09/24 - Past Medical/Surgical History -: Hypertension -: Hyperlipidemia -: Congestive heart failure -: Atrial fibrillation -: Defibrillator/Pacemaker -: OR status post CABG -: CABG -: Colonoscopy -: Appendectomy -: Defibrillator -: Ankle surgery - Family History Family History: Reviewed- Non-Contributory - Social History Smoking Status: Never smoker Alcohol use: No CD- Drugs: No Review of Systems Respiratory: Cough, Shortness of Breath Physical Examination - Physical Exam General: Alert, In no apparent distress, Oriented x1 HEENT: Atraumatic, Normocephalic, PERRLA Neck: Supple, 2+ carotid pulse no bruit Respiratory: Normal air movement, Rhonchi/gurgles Cardiovascular: Normal pulses, Normal S1 S2, Irregular heart rate/rhythm (bradycardic) Capillary refill: <2 Seconds Gastrointestinal: Normal bowel sounds, Soft and benign Musculoskeletal: No clubbing Integumentary: No rashes Neurological: Normal speech, Normal tone - Studies Laboratory Data (last 24 hrs) 05/09/24 05/09/24 08:30 08:30 WBC 8.70 Hgb 13.5 L Hct 40.6 Plt Count 26 L Sodium 143 Potassium 3.1 L BUN 32 H Creatinine 1.52 H Glucose 141 H Assessment and Plan - Plan Assessment and plan Respiratory distress secondary to CHF exacerbation Fluid volume overload NSTEMI Bradycardic Digoxin toxicity -Chest x-ray report "Developing left basilar airspace opacity, may reflect atelectasis or pneumonia. Mild cardiomegal" -BNP 10,205 -Troppnin 87.4/81.5- hold heparin per cardiology -Digoxin toxicity 2.60, Hold digoxin, no need digiband per cardiology -consult cardiology -continuous telemetery- paced rhythm -lasix BID- if blood pressure allows -strict I and O -daily weights Thrombocytopenia -Sees hemotalogy outpatient, on a Vit B12 regimen -Vit B 495 on 05/07 -Platelets 26, close monitoring -monitor for bleeding -continue eliquis dose was lowered by multimedia technician in [place] Hyperglycemia -Monitor in AM labs -Serum glucose 141 JESUS -BUN/creatinine 32/1.52, GFR 45 -Monitor in a.m. lab Hypokalemia -K 3.1 -replaced in the ED History Atrial fibrillation History of [place] status post CABG (2000) History HTN/HLD -continue home medications if appropriate DVT ppx eliquis DNR LOS 2 days Discharge Plan: Home Plan to discharge in: 48 Hours - Advance Directives Does patient have a Living Will: No Does patient have a Durable POA for Healthcare: No
[2024-05-09] MEDS: ENSURE ENLIVE 237 ML CAN PO SCH (11:32)
[2024-05-09] MEDS: APIXABAN 2.5 MG TABLET PO SCH (21:07)
[2024-05-09] MEDS: TAMSULOSIN 0.4 MG SR CAP PO SCH (21:07)
[2024-05-09] MEDS: FUROSEMIDE 40 MG/4 ML VIAL IV SCH (21:11)
[2024-05-10 06:37] LABS: Absolute Eosinophils 0.1 K/uL (0-0.5); Absolute Lymphocytes (CBC) 3.7 K/uL (0.7-4.9); Absolute Monocytes 0.2 K/uL (0.1-1.3); Absolute Neutrophil 3.6 K/uL (1.8-8.0); Basophils % 0.5 % (0-1.3); Eosinophils % 1.6 % (0-4.4); Hematocrit 41.7 % (39.6-49.0); Hemoglobin 13.8 g/dL (13.6-17.9); Lymphocytes % 48.4 % (15.3-44.8); MCH 34.8 pg (27.0-35.0); MCHC 33.2 g/dL (32.0-36.0); MCV 104.9 fL (80-100); MPV 10.8 fL (7.6-11.3); Monocytes % 2.5 % (3.3-12.3); Nucleated Red Blood Cells % 0.1 % (0-0); Platelets 30 thou/uL (152-406); RBC Red Blood Cell Count 3.97 M/uL (4.33-5.43); Red Cell Distribution Width 17.8 % (12.1-15.2)
[2024-05-10 06:53] LABS: Anion Gap 5.4 mEq/L (5.0-15.0); Magnesium 2.1 mg/dL (1.6-2.4); Phosphorus 2.3 mg/dL (2.5-4.9); Potassium 3.4 mEq/L (3.5-5.1)
[2024-05-10] MEDS: POTASS/SODIUM PHOSPHATE 1 PKT POWD.PACK PO SCH (08:10)
[2024-05-10] MEDS: ATORVASTATIN 10 MG TAB PO SCH (08:10)
[2024-05-10] MEDS: PANTOPRAZOLE 40MG TABLET PO SCH (08:10)
[2024-05-10] MEDS: AMIODARONE HCL 200 MG TAB PO SCH (08:12)
[2024-05-10] MEDS: carvediloL 25 MG TAB PO SCH (08:18)
[2024-05-10 10:12] LABS: Specific Gravity 1.011 (1.005-1.030); Sqamous Epithelial None Seen /HPF (None Seen); Urine Bacteria None Seen /HPF (<20); Urine Bilirubin NEGATIVE (Negative); Urine Blood Negative (Negative); Urine Clarity Turbid (Clear); Urine Color Yellow (Yellow); Urine Culture Reflex Order NOT NEEDED; Urine Glucose NEGATIVE (Negative); Urine Ketones NEGATIVE (Negative); Urine Microscopic Reflex YN ORDER UMIC; Urine Mucus Slight /HPF (None Seen); Urine Nitrite NEGATIVE (Negative); Urine Protein 1+ (Negative); Urine RBC <5 /HPF (None Seen); Urine Urobilinogen Normal (Normal); Urine WBC <5 /HPF (<5); Urine pH 5.5 (5.0-7.0)
[2024-05-10] MEDS: POTASSIUM 25 MEQ EFFERV TAB ONE (10:13)
[2024-05-10] MEDS: POTASSIUM 25 MEQ EFFERV TAB PO ONE (10:23)
--- NOTE | 2024-05-10 12:30 | EKG ---
Test Date: 2024-05-09 Test Time: 08:31:13 Pecan Picker: JOÃO MEASUREMENT RESULTS: Intervals: Rate: 49 NE: QRSD: 114 QT: 520 QTc: 469 [place]: P: NE: QRS: 104 T: 239 INTERPRETIVE STATEMENTS: Sinus rhythm with V paced complexes. Anterolateral infarct, age undetermined ST & T wave abnormality, consider inferior ischemia Abnormal ECG Compared to ECG 07/03/2020 03:07:14 Ventricular premature complex(es) no longer present Myocardial infarct finding still present ST (T wave) deviation still present Possible ischemia still present Electronically Signed On 05-10-24 12:29:55 CDT by Osbaldo Wong
--- NOTE | 2024-05-10 13:26 | P.PN ---
Date of Service: 05/10/24 Subjective: Breathing a bit better overnight No acute events overnight Family at bedside ROS: 10 point ROS as noted above, otherwise negative Physical exam GEN: Alert, oriented, NAD HEENT: Normal conjunctiva, sclera anicteric CV: Regular rate and rhythm, no edema Pulm: Nonlabored respirations on room air ABD: Soft, nontender, nondistended MSK: No joint tenderness Integumentary: Bruising noted to dorsum of left foot Neuro: Normal speech, normal affect Vitals reviewed Assessment and plan Respiratory distress secondary to CHF exacerbation Fluid volume overload NSTEMI Bradycardic Digoxin toxicity -Troponin downtrending -Digoxin toxicity 2.60, Hold digoxin, no need digiband per cardiology -consult cardiology, echocardiogram ordered -continuous telemetery- paced rhythm -lasix IV BID -strict I and O -daily weights Thrombocytopenia -Sees hemotalogy outpatient, on a Vit B12 regimen -Vit B 495 on 05/07 -Platelets around 30 -Reports was notified about thrombocytopenia around a month ago -monitor for bleeding -continue eliquis dose was lowered by digital marketing lead in [place] -Continue diuresis, monitor renal function closely Hypokalemia -Protocols in place History Atrial fibrillation History of [place] status post CABG (2000) History HTN/HLD -continue home medications as appropriate DVT ppx eliquis DNR LOS 2 days Discharge Plan: Home Plan to discharge in: 48 Hours Time Spent Managing Pts Care (In Minutes): 35 <Ceferino Hickman - Last Filed: 05/10/24 13:26> CHF exacerbation Thrombocytopenia/lymphocytosis IV Lasix Cardiology consult Troponin trended flat. Elevated troponin likely secondary to demand ischemia CBC result discussed with hematology oncologist Dr. Mendez. Blood smear for pathology review requested per Dr. Mendez recommendation. <raheel travis - Last Filed: 05/10/24 15:24>
--- NOTE | 2024-05-10 14:27 | ECHO ---
HEIGHT: 5 ft 4 in WEIGHT: 145 lb 1.6 oz DATE OF STUDY: 05/10/[address]: Zeny Whaley NP 2-DIMENSIONAL: YES M.MODE: YES DOPPLER: YES COLOR FLOW: YES TDS: NO PORTABLE: YES DEFINITY: NO BUBBLE STUDY: NO DIAGNOSIS: HEART FAILURE CARDIAC HISTORY: CATHERIZATION: YES SURGERY: YES PROSTHETIC VALVE: NO PACEMAKER: YES MEASUREMENTS (cm) DIASTOLIC (NORMALS) SYSTOLIC (NORMALS) IVSd 1.1 (0.6-1.2) LA Diam 3.8 (1.9-4.0) LVEF 35-40% LVIDd 6.0 (3.5-5.7) LVIDs 5.4 (2.0-3.5) %FS 9% LVPWd 1.1 (0.6-1.2) Ao Diam 3.2 (2.0-3.7) 2 DIMENSIONAL ASSESSMENT: RIGHT ATRIUM: NORMAL LEFT ATRIUM: NORMAL RIGHT VENTRICLE: NORMAL WITH PACEMAKER WIRE LEFT VENTRICLE: DEPRESSED EJECTION FRACTION TRICUSPID VALVE: MODERATE TRICUSPID REGURGITATION MITRAL VALVE: MODERATE MITRAL REGURGITATION PULMONIC VALVE: MODERATE PULMONIC INSUFFICIENCY AORTIC VALVE: MODERATE AORTIC INSUFFICIENCY PERICARDIAL EFFUSION: NONE AORTIC ROOT: NORMAL LEFT VENTRICULAR WALL MOTION: MODERATE GLOBAL HYPOKINESIS. DOPPLER/COLOR FLOW: SEE BELOW. COMMENTS: 1. MODERATLY DEPRESSED LEFT VENTRICULAR EJECTION FRACTION 35-40%. 2. MODERATE GLOBAL HYPOKINESIS. 3. MODERATE (MITRAL REGURGITATION / AORTIC INSUFFICIENCY). 4. MODERATE TO SEVERE TRICUSPID REGURGITATION. 5. SEVERE PULMONARY HYPERTENSION WITH RIGHT VENTRICULAR SYSTOLIC PRESSURE GREATER THAN 60mmHg. TECHNOLOGIST: PO MONAHAN
--- NOTE | 2024-05-10 20:37 | CON ---
Date of Consultation: 05/10/2024 Reason For Consultation: 1.Borderline elevated troponin. 2.History of atrial fibrillation. History Of Present Illness: This is an 83-year-old male, history of hypertension, dyslipidemia, hear t failure, atrial fibrillation, history of CABG, presented with shortness of breath. Denies having a ny chest pain. Troponin was borderline. He follows up with a engraving plate maker on an outpatient arena. Denies having any active chest pain. Past Medical History: Coronary artery disease, CHF, dyslipidemia, hypertension. Past Surgical History: CABG and defibrillator in place and ankle surgery. Medications: Refer reconciliation sheet for detailed list. Allergies: CODEINE. Family History: No premature coronary artery disease or cancer. Social History: Does not smoke or drink. Does not use any drugs. Review of Systems: All systems reviewed, they are negative except as mentioned in HPI. Physical Examination: Vital Signs: Reviewed. Head and Neck: Pupils are equal, reactive to light. Intact eye movements. No JVD. No cervical lym phadenopathy. Neck: Supple. Thyroid is not enlarged. Lungs: Clear to auscultation bilaterally. No rhonchi, wheezing, or crackles. No accessory muscle u se. Heart: Irregular. No extra sounds. Abdomen: Soft, nontender. Bowel sounds positive. No organomegaly. No masses or hernia. No rigidi ty or rebound. Extremities: Trace edema bilaterally. No clubbing, cyanosis. Intact pulses. Skin: No rash. No nodule. Neurologic: Alert, awake, oriented x3. No acute focal deficits appreciated. Investigations: Troponin 87, down to 70. BUN 28, creatinine 1.38, and hemoglobin 13.8. Assessment And Recommendation: 1.Congestive heart failure exacerbation, improving nicely. Continue IV Lasix. Monitor BUN, creatin ine, electrolytes. 2.Acute renal failure due to elevated central venous pressure and improving with Lasix. 3.Atrial fibrillation. Rate is controlled on Eliquis. Continue current management. 4.Acute on chronic renal failure, likely due to heart failure, improved with Lasix. Continue to mon itor BUN and creatinine. 5.Dyslipidemia. Continue statin. 6.Elevated troponin without any chest pain. He will need a stress test. He follows up with a cardi ologist. Follow up on outpatient arena for that. 7.CHF, systolic with acute exacerbation. Agree with the current management of Lasix. Monitor BUN a nd creatinine carefully. SR/MODL Voice ID: [id number] Report ID: [id number]
[2024-05-10 21:32] VITALS: BMI 24.9
[2024-05-11 05:06] LABS: Absolute Eosinophils 0.2 K/uL (0-0.5); Absolute Lymphocytes (CBC) 3.8 K/uL (0.7-4.9); Absolute Monocytes 0.4 K/uL (0.1-1.3); Absolute Neutrophil 2.7 K/uL (1.8-8.0); Basophils % 0.4 % (0-1.3); Eosinophils % 2.9 % (0-4.4); Hematocrit 41.6 % (39.6-49.0); Hemoglobin 13.7 g/dL (13.6-17.9); MCH 34.3 pg (27.0-35.0); MCHC 32.8 g/dL (32.0-36.0); MCV 104.5 fL (80-100); MPV 10.3 fL (7.6-11.3); Monocytes % 5.5 % (3.3-12.3); Neutrophils % 37.7 % (41.7-73.7); Nucleated Red Blood Cells % 0.1 % (0-0); Platelets 16 thou/uL (152-406); RBC Red Blood Cell Count 3.98 M/uL (4.33-5.43); Red Cell Distribution Width 17.6 % (12.1-15.2)
[2024-05-11 05:22] LABS: Lymphocytes % 53.5 % (15.3-44.8)
[2024-05-11 05:25] LABS: Anion Gap 9.5 mEq/L (5.0-15.0); Digoxin Level 1.7 ng/mL (0.80-2.00); Phosphorus 2.2 mg/dL (2.5-4.9); Potassium 3.5 mEq/L (3.5-5.1)
[2024-05-11] MEDS: POTASSIUM CL SA 10 MEQ TAB PO ONE (08:54)
[2024-05-11] MEDS: POTASS/SODIUM PHOSPHATE 1 PKT POWD.PACK PO SCH (08:54)
--- NOTE | 2024-05-11 12:58 | P.PN ---
Date of Service: 05/11/24 Subjective: Breathing a bit better overnight No acute events overnight Family at bedside platelets worsening ROS: 10 point ROS as noted above, otherwise negative Physical exam GEN: Alert, oriented, NAD HEENT: Normal conjunctiva, sclera anicteric CV: Regular rate and rhythm, no edema Pulm: Nonlabored respirations on room air ABD: Soft, nontender, nondistended MSK: No joint tenderness Integumentary: Bruising noted to dorsum of left foot Neuro: Normal speech, normal affect Vitals reviewed Assessment and plan Respiratory distress secondary to CHF exacerbation Fluid volume overload NSTEMI Bradycardic Digoxin toxicity -Troponin downtrending -Digoxin toxicity, level improved, continue to told -consult cardiology -Echo shows 1. MODERATLY DEPRESSED LEFT VENTRICULAR EJECTION FRACTION 35-40%. 2. MODERATE GLOBAL HYPOKINESIS. 3. MODERATE (MITRAL REGURGITATION / AORTIC INSUFFICIENCY). 4. MODERATE TO SEVERE TRICUSPID REGURGITATION. 5. SEVERE PULMONARY HYPERTENSION WITH RIGHT VENTRICULAR SYSTOLIC PRESSURE GREATER THAN 60mmHg. -continuous telemetery- paced rhythm -lasix IV BID -strict I and O -daily weights Thrombocytopenia -Sees hemotalogy outpatient, on a Vit B12 regimen -Vit B 495 on 05/07 -Platelets worse at 16 today -Reports was notified about thrombocytopenia around a month ago -monitor for bleeding -Holding eliquis -Slides from pathology with thrombocytopenia and atypical lymphocytes, suggest flow cytometry for further evaluation if clinically indicated -Will discuss further with hematology JESUS -Continue diuresis, monitor renal function closely Hypokalemia -Protocols in place History Atrial fibrillation History of [place] status post CABG (2000) History HTN/HLD -continue home medications as appropriate DVT ppx SCD DNR LOS 2 days Discharge Plan: Home Plan to discharge in: 48 Hours Time Spent Managing Pts Care (In Minutes): 35
[2024-05-11] MEDS: ACETAMINOPHEN 500 MG TAB PO PRN (14:36)
--- NOTE | 2024-05-11 17:03 | PN ---
Date of Progress Note: 05/11/2024 Subjective: Seen by bedside. Continues to have mild orthopnea with shortness of breath. No chest p ain. No dysuria, polyuria, or urgency. Has lower extremity edema. Review of Systems: Positive for shortness of breath and orthopnea, lower extremity edema. Rest of systems reviewed were negative. Physical Examination: Vital signs: Reviewed. Head and Neck: Pupils are equal, reactive to light. Intact eye movements. No JVD. No cervical lym phadenopathy. Neck is supple. Thyroid is not enlarged. Lungs: Crackles in both bases. No accessory muscle use or muscle retraction. Heart: Regular. No extra sounds. Abdomen: Soft, nontender. Bowel sounds positive. No organomegaly. No masses or hernia. No rigidi ty or rebound. Extremities: 1+ edema bilaterally. No clubbing, cyanosis. Intact pulses. Skin: No rash. Neurologic: Alert, awake, oriented x3. No acute deficits appreciated. Investigations: BUN 27, creatinine 0.32. Hemoglobin is 13.7. Assessment/recommendations: 1.Acute on chronic congestive heart failure exacerbation, improving with diuretics. Continue Lasix. 2.Acute on chronic renal failure due to elevated central venous pressure due to fluid overload statu s and the improvement with Lasix. Continue current management and monitor BUN creatinine closely. 3.Dyslipidemia. Continue Lipitor 40 mg at bedtime. 4.Atrial fibrillation. This condition is controlled. Continue Eliquis, Coreg, and amiodarone. 5.Elevated troponin. No chest pain. He has a carpet installation specialist that he follows up on a regular basis to obtain a stress test on an outpatient basis. /TAYLER Voice ID: [id number] Report ID: [id number]
[2024-05-12 07:41] LABS: Absolute Eosinophils 0.2 K/uL (0-0.5); Absolute Lymphocytes (CBC) 0.7 K/uL (0.7-4.9); Absolute Monocytes 2.8 K/uL (0.1-1.3); Absolute Neutrophil 2.3 K/uL (1.8-8.0); Basophils % 0.4 % (0-1.3); Eosinophils % 3.4 % (0-4.4); Hematocrit 41.2 % (39.6-49.0); Hemoglobin 13.7 g/dL (13.6-17.9); Lymphocytes % 11.7 % (15.3-44.8); MCH 34.6 pg (27.0-35.0); MCHC 33.2 g/dL (32.0-36.0); Monocytes % 45.7 % (3.3-12.3); Neutrophils % 38.8 % (41.7-73.7); Nucleated Red Blood Cells % 0.2 % (0-0); RBC Red Blood Cell Count 3.96 M/uL (4.33-5.43); Red Cell Distribution Width 17.4 % (12.1-15.2)
[2024-05-12 07:42] LABS: MPV 12.3 fL (7.6-11.3); Platelets 34 thou/uL (152-406)
[2024-05-12 07:47] LABS: Anion Gap 5.8 mEq/L (5.0-15.0); Phosphorus 2.9 mg/dL (2.5-4.9); Potassium 3.8 mEq/L (3.5-5.1)
[2024-05-12 09:28] LABS: Atypical Lymphocytes 35 %; Differential Total Cells Count 100; Lymphocytes 16 % (15-42); Monocytes 12 % (0-10); Segmented Neutrophils 34 % (40-80)
[2024-05-12 09:29] LABS: Blood Morphology Comment NOT SEEN (NOT SEEN); Platelet Estimate DECR
--- NOTE | 2024-05-12 11:07 | P.PN ---
Subjective Date of Service: 05/12/24 Chief Complaint: NSTEMI, CHF exacerbation Subjective: No new changes, No C/O voiced, Tolerating diet, Ambulating, Improving Review of Systems 10-point ROS is otherwise unremarkable Physical Examination - Vital Signs Temperature: 97.5 F Blood Pressure: 131/61 Pulse: 63 Respirations: 18 Pulse Ox (%): 97 - Physical Exam General: Alert, In no apparent distress HEENT: Atraumatic, PERRLA, EOMI Neck: Supple, JVD not distended Respiratory: Clear to auscultation bilaterally, Normal air movement Cardiovascular: Regular rate/rhythm, Normal S1 S2 Gastrointestinal: Normal bowel sounds, No tenderness Musculoskeletal: No tenderness Integumentary: No rashes Neurological: Normal speech, Normal tone, Normal affect Lymphatics: No axilla or inguinal lymphadenopathy - Studies Medications List Reviewed: Yes Assessment And Plan - Current Problems (Diagnosis) (1) Acute on chronic combined systolic and diastolic heart failure Current Visit: Yes Status: Acute Plan: diuresed well during hospital stay. cut back to Lasix 40 mg po BID continue Coreg. will benefit from entresto which can be initiated as outpatient with his soft sugar cutter. (2) Atrial fibrillation Current Visit: Yes Status: Acute Plan: continue amdioarone and coreg Eliquis on hold until plt is more than 50K due to higher risk of bleeding. (3) Thrombocytopenia Current Visit: Yes Status: Acute Plan: Hematology work up.
--- NOTE | 2024-05-12 11:44 | P.PN ---
Date of Service: 05/12/24 Subjective: Breathing a bit better overnight No acute events overnight Family at bedside platelets improved today ROS: 10 point ROS as noted above, otherwise negative Physical exam GEN: Alert, oriented, NAD HEENT: Normal conjunctiva, sclera anicteric CV: Regular rate and rhythm, no edema Pulm: Nonlabored respirations on room air ABD: Soft, nontender, nondistended MSK: No joint tenderness Integumentary: Bruising noted to dorsum of left foot Neuro: Normal speech, normal affect Vitals reviewed Assessment and plan Respiratory distress secondary to CHF exacerbation Fluid volume overload NSTEMI Bradycardic Digoxin toxicity -Troponin downtrending -Digoxin toxicity, level improved, continue to told -consult cardiology -Echo shows 1. MODERATLY DEPRESSED LEFT VENTRICULAR EJECTION FRACTION 35-40%. 2. MODERATE GLOBAL HYPOKINESIS. 3. MODERATE (MITRAL REGURGITATION / AORTIC INSUFFICIENCY). 4. MODERATE TO SEVERE TRICUSPID REGURGITATION. 5. SEVERE PULMONARY HYPERTENSION WITH RIGHT VENTRICULAR SYSTOLIC PRESSURE GREATER THAN 60mmHg. -continuous telemetery- paced rhythm -lasix PO BID -strict I and O -daily weights -Digoxin discontinued Thrombocytopenia -Sees hemotalogy outpatient, on a Vit B12 regimen -Vit B 495 on 05/07 -Platelets better, 34 today -Reports was notified about thrombocytopenia around a month ago -monitor for bleeding -Holding eliquis until plt >50 -Slides from pathology with thrombocytopenia and atypical lymphocytes, suggest flow cytometry for further evaluation if clinically indicated -Sent for flow cytometry today JESUS -Continue diuresis, monitor renal function closely Hypokalemia -Protocols in place History Atrial fibrillation History of AL status post CABG (2000) History HTN/HLD -continue home medications as appropriate DVT ppx SCD DNR LOS 1-2 days Discharge Plan: Home Time Spent Managing Pts Care (In Minutes): 35
[2024-05-12] MEDS: FUROSEMIDE 40 MG TABLET PO SCH (17:24)
[2024-05-12] MEDS: AMIODARONE HCL 200 MG TAB PO SCH (21:37)
[2024-05-13 05:03] LABS: Absolute Eosinophils 0.2 K/uL (0-0.5); Absolute Lymphocytes (CBC) 0.7 K/uL (0.7-4.9); Absolute Monocytes 2.3 K/uL (0.1-1.3); Basophils % 0.4 % (0-1.3); Eosinophils % 3.2 % (0-4.4); Hematocrit 39.1 % (39.6-49.0); Hemoglobin 13.1 g/dL (13.6-17.9); Lymphocytes % 13.5 % (15.3-44.8); MCH 34.9 pg (27.0-35.0); MCHC 33.5 g/dL (32.0-36.0); MCV 103.9 fL (80-100); MPV 10.9 fL (7.6-11.3); Monocytes % 44.2 % (3.3-12.3); Neutrophils % 38.7 % (41.7-73.7); Nucleated Red Blood Cells % 0.1 % (0-0); Platelets 27 thou/uL (152-406); RBC Red Blood Cell Count 3.76 M/uL (4.33-5.43)
[2024-05-13 05:05] LABS: Anion Gap 4.4 mEq/L (5.0-15.0); Magnesium 1.7 mg/dL (1.6-2.4); Phosphorus 2.7 mg/dL (2.5-4.9); Potassium 3.4 mEq/L (3.5-5.1)
[2024-05-13] MEDS: MAGNESIUM SULFATE 1 gm IVPB 1 GM/100 ML BAG IV ONE (08:36)
[2024-05-13] MEDS: POTASSIUM 25 MEQ EFFERV TAB PO ONE (08:36)
--- NOTE | 2024-05-13 11:12 | P.PN ---
Subjective Date of Service: 05/13/24 Chief Complaint: NSTEMI, CHF exacerbation Subjective: No new changes, No C/O voiced, Tolerating diet, Ambulating, Improving Review of Systems 10-point ROS is otherwise unremarkable Physical Examination - Vital Signs Temperature: 97.6 F Blood Pressure: 127/58 Pulse: 47 Respirations: 16 Pulse Ox (%): 96 - Physical Exam General: Alert, In no apparent distress HEENT: Atraumatic, PERRLA, EOMI Neck: Supple, JVD not distended Respiratory: Clear to auscultation bilaterally, Normal air movement Cardiovascular: Regular rate/rhythm, Normal S1 S2 Gastrointestinal: Normal bowel sounds, No tenderness Musculoskeletal: No tenderness Integumentary: No rashes Neurological: Normal speech, Normal tone, Normal affect Lymphatics: No axilla or inguinal lymphadenopathy - Studies Medications List Reviewed: Yes Assessment And Plan - Current Problems (Diagnosis) (1) Acute on chronic combined systolic and diastolic heart failure Current Visit: Yes Status: Acute Plan: diuresed well during hospital stay. continue Lasix 40 mg po BID cut Coreg to 12.5 mg po BID. 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 (2) Atrial fibrillation Current Visit: Yes Status: Acute Plan: Cut back Amiodarone to 100 mg daily as patient is bradycardic Eliquis on hold until plt is more than 50K due to higher risk of bleeding. (3) Thrombocytopenia Current Visit: Yes Status: Acute Plan: Hematology work up.
[2024-05-13 12:18] VITALS: BP 139/58; TEMP 97.7
--- NOTE | 2024-05-13 12:30 | P.DS ---
Admission Date: 05/10/24 Discharge Date: 05/13/24 Disposition: ROUTINE DISCHARGE Discharge Condition: GOOD Reason for Admission: NSTEMI, CHF exacerbation Consultations: Cardiology-Dr. Becker Brief History of Present Illness: Zak Rangel is an 83 year old male with Pmhx hypertension, hyperlipidemia, congestive heart failure, atrial fibrillation, defibrillator/pacer, AL (s/p CABG), who presents to the ED with chief complaint of shortness of breath and coughing for the past several days. His is at bedside and is good historian and reports he is compliant with his medications and she usually helps him manage his medications. She reports he is seeing a evening sitter for his thrombocytopenia and was started on B12, a diagnosis has not been determined yet. On evaluation, his lung sounds have expiratory gurgles, he is confused, the last shock from the defibrillator was almost a year ago, his heart his paced intermittently. Initial vital BP 125 / 51; Pulse 51; Resp 19; Pulse Ox 98% on R/A Laboratory evaluation significant for BNP 10,205, troponin 87.4, potassium 3.1, platelets 26, Bun/creatinine 32/1.52, GFR 45, serum glucose 141 Chest x-ray report "Developing left basilar airspace opacity, may reflect atelectasis or pneumonia. Mild cardiomegal" Zak will be admitted to hospitalist service for further evaluation and treatment of fluid volume overload secondary to CHF exacerbation. Hospital Course: Assessment and plan Respiratory distress secondary to CHF exacerbation Fluid volume overload NSTEMI Bradycardic Digoxin toxicity Thrombocytopenia JESUS Hypokalemia History Atrial fibrillation History of AL status post CABG (2000) History HTN/HLD Patient was admitted to the hospital for CHF exacerbation, also noted to have thrombocytopenia and an elevated digoxin level. He was treated with IV Lasix and had improvement in his respiratory symptoms. Echocardiogram was performed which showed: moderately depressed left ventricular ejection fraction 35 to 40% moderate global hypokinesis moderate mitral regurgitation/aortic insufficiency moderate to severe tricuspid regurgitation severe pulmonary hypertension with right ventricular systolic pressures greater than 60 Cardiology recommend his home dose of Lasix be increased from 40 mg once daily to 40 mg twice daily. Digoxin was discontinued, during hospitalization patient did have a run of V. tach about 15 beats long for this reason cardiology recommended increasing the amiodarone 100 mg once daily to amiodarone 100 mg twice daily. Regarding patient thrombocytopenia when he came in his platelet count was 26, and dropped as low as 16 and is currently 27. Differential path review was performed on his CBC from admission which showed thrombocytopenia and atypical lymphocytes, suggested flow cytometry for further hematology evaluation. Flow cytometry has been ordered and sent off. Case was discussed with Dr. Mendez who will have the staff reach out to patient to schedule an appointment next week for further evaluation. Patient instructed to hold Eliquis until platelet counts are greater than 50 due to increased risk of bleeding. For your home medications: Amiodarone has been increased from 100 mg once daily to 100 mg twice daily and prescription was sent to the pharmacy Furosemide has been increased from 40 mg once daily to 40 mg twice daily, prescription has been sent to your pharmacy Do not take your Eliquis until instructed to by a physician and platelet counts are greater than 50 Please follow-up with your primary care doctor and telecom assistant in [address] Breen staff should be reaching out to you to schedule a follow-up appointment next week in regards to the low platelet count. Vital Signs/Physical Exam: Temp Pulse Resp BP Pulse Ox 97.7 F 54 16 139/58 L 96 05/13/24 12:00 05/13/24 12:00 05/13/24 12:00 05/13/24 12:00 05/13/24 12:00 General: Alert, In no apparent distress, Oriented x3 HEENT: Atraumatic, PERRLA Neck: Supple, JVD not distended Respiratory: Clear to auscultation bilaterally, Normal air movement Cardiovascular: Regular rate/rhythm, Normal S1 S2 Gastrointestinal: Normal bowel sounds, No tenderness Musculoskeletal: No tenderness Integumentary: No rashes Neurological: Normal speech, Normal tone, Normal affect Laboratory Data at Discharge: WBC 5.20 thou/uL (4.3-10.9) 05/13/24 04:15 Hgb 13.1 g/dL (13.6-17.9) L 05/13/24 04:15 Hct 39.1 % (39.6-49.0) L 05/13/24 04:15 Plt Count 27 thou/uL (152-406) L 05/13/24 04:15 Sodium 143 mEq/L (136-145) 05/13/24 04:15 Potassium 3.4 mEq/L (3.5-5.1) L 05/13/24 04:15 BUN 31 mg/dL (7-18) H 05/13/24 04:15 Creatinine 1.39 mg/dL (0.70-1.30) H 05/13/24 04:15 Glucose 106 mg/dL (74-106) 05/13/24 04:15 Phosphorus 2.7 mg/dL (2.5-4.9) 05/13/24 04:15 Magnesium 1.7 mg/dL (1.6-2.4) 05/13/24 04:15 Triglycerides 72 mg/dL (<150) 05/10/24 05:41 Cholesterol 105 mg/dL (<200) 05/10/24 05:41 HDL Cholesterol 41 mg/dL (40-60) 05/10/24 05:41 Cholesterol/HDL Ratio 2.56 05/10/24 05:41 Home Medications: Carvedilol [Coreg] 25 mg PO DAILY 05/09/24 Omeprazole 20 mg PO DAILY 05/09/24 Pravastatin [Pravachol*] 80 mg PO DAILY 05/09/24 Tamsulosin [Flomax*] 0.4 mg PO BEDTIME 05/09/24 Amiodarone HCl 100 mg PO BID #60 tab 05/13/24 Furosemide [Lasix] 40 mg PO BIDL #60 tab 05/13/24 New Medications: Amiodarone HCl 100 mg PO BID #60 tab Furosemide [Lasix] 40 mg PO BIDL #60 tab Physician Discharge Instructions: Patient was admitted to the hospital for CHF exacerbation, also noted to have thrombocytopenia and an elevated digoxin level. He was treated with IV Lasix and had improvement in his respiratory symptoms. Echocardiogram was performed w [facility] showed: moderately depressed left ventricular ejection fraction 35 to 40% moderate global hypokinesis moderate mitral regurgitation/aortic insufficiency moderate to severe tricuspid regurgitation severe pulmonary hypertension with right ventricular systolic pressures greater than 60 Cardiology recommend his home dose of Lasix be increased from 40 mg once daily to 40 mg twice daily. Digoxin was discontinued, during hospitalization patient did have a run of V. tach about 15 beats long for this reason cardiology recommended increasing the amiodarone 100 mg once daily to amiodarone 100 mg twice daily. Regarding patient thrombocytopenia when he came in his platelet count was 26, and dropped as low as 16 and is currently 27. Differential path review was performed on his CBC from admission which showed thrombocytopenia and atypical lymphocytes, suggested flow cytometry for further hematology evaluation. Flow cytometry has been ordered and sent off. Case was discussed with Dr. Mendez who will have the staff reach out to patient to schedule an appointment next week for further evaluation. Patient instructed to hold Eliquis until platelet counts are greater than 50 due to increased risk of bleeding. For your home medications: Amiodarone has been increased from 100 mg once daily to 100 mg twice daily and prescription was sent to the pharmacy Furosemide has been increased from 40 mg once daily to 40 mg twice daily, prescription has been sent to your pharmacy Do not take your Eliquis until instructed to by a physician and platelet counts are greater than 50 Please follow-up with your primary care doctor and telecom assistant in [address] Breen staff should be reaching out to you to schedule a follow-up appointment next week in regards to the low platelet count. Diet: AHA Activity: Fall precautions Followup: Dorie Turpin NP [Primary Care Provider] - 1-2 Weeks Pierre Becker MD [ACTIVE - CAN ADMIT] - Time spent managing pt's care (in minutes): 35
[2024-05-13 13:11] VITALS: O2SAT 98
== END 2024-05-13 13:49 | disposition home or self-care (01) | DRG 280 ==
LOC: ER 07:56 → ERHOLD 11:26 → 2ND 11:48 → OBSVTOIN 05-10 13:09
PROVIDERS: ADMIT Internal Medicine; ATTEND Hospitalist
DX: I11.0 Hypertensive heart disease with heart failure (principal); I50.23 Acute on chronic systolic (congestive) heart failure; I21.A1 Myocardial infarction type 2; N17.9 Acute kidney failure, unspecified; E87.6 Hypokalemia; E78.5 Hyperlipidemia, unspecified; D64.9 Anemia, unspecified; I48.91 Unspecified atrial fibrillation; D69.6 Thrombocytopenia, unspecified; I08.3 Combined rheumatic disorders of mitral, aortic and tricuspid valves; I27.29 Other secondary pulmonary hypertension; J44.9 Chronic obstructive pulmonary disease, unspecified; F17.210 Nicotine dependence, cigarettes, uncomplicated; I25.2 Old myocardial infarction; T46.0X5A Adverse effect of cardiac-stimulant glycosides and drugs of similar action, initial encounter; R73.9 Hyperglycemia, unspecified; R00.1 Bradycardia, unspecified; Z66 Do not resuscitate; Z88.5 Allergy status to narcotic agent; Z95.1 Presence of aortocoronary bypass graft; Z79.01 Long term (current) use of anticoagulants; Z79.02 Long term (current) use of antithrombotics/antiplatelets; Z90.49 Acquired absence of other specified parts of digestive tract; Z79.899 Other long term (current) drug therapy; Z95.810 Presence of automatic (implantable) cardiac defibrillator
CPT/HCPCS: 0241U; 36415; 71045; 80048; 80061; 80162; 81001; 83735; 83880; 84100; 84132; 84484; 85025; 93005; 93306; 94640; 96365; 96366; 96375; 97116; 97161; 99285; G0378; J1940; J3475; J3480; J7050; J7613; J7644

== ENCOUNTER 2024-06-23 13:40 | Emergency (ER) | payer OTHER ==
--- NOTE | 2024-06-23 16:06 | RAD REPORT ---
EXAM DESCRIPTION: RAD - Hip Right 2 View - 06/23/2024 3:13 pm CLINICAL HISTORY: Right hip pain FINDINGS: No fracture or dislocation is seen. Osteoporosis If the patient continues to have symptoms to suggest an occult fracture then MRI would be recommended
--- NOTE | 2024-06-23 16:06 | RAD REPORT ---
EXAM DESCRIPTION: RAD - Pelvis - 06/23/2024 3:13 pm CLINICAL HISTORY: Pelvic pain status post injury FINDINGS: No fracture or dislocation is seen. Bones are osteoporotic. Calcified gallstones.
--- NOTE | 2024-06-23 16:07 | RAD REPORT ---
EXAM DESCRIPTION: RAD - Ankle Left 3 View -06/23/2024 3:13 pm CLINICAL HISTORY: Left ankle pain status post injury FINDINGS: No fracture or dislocation is seen.
--- NOTE | 2024-06-23 16:08 | RAD REPORT ---
EXAM DESCRIPTION: RAD - Foot Right 3 View - 06/23/2024 3:13 pm CLINICAL HISTORY: Right foot pain status post injury FINDINGS: No fracture or dislocation is seen Hallux valgus deformity. Mild lateral subluxation first proximal phalanx. Osteoporosis Crispin has been placed into distal fibula
--- NOTE | 2024-06-23 16:10 | RAD REPORT ---
EXAM DESCRIPTION: RAD - Foot Left 3 View - 06/23/2024 3:13 pm CLINICAL HISTORY: Left Foot pain FINDINGS: No fracture or dislocation is seen. 2 centimeter wire lies adjacent to the distal fibular diaphysis
--- NOTE | 2024-06-23 16:32 | RAD REPORT ---
EXAM DESCRIPTION: RAD - Ankle Right 3 View - 06/23/2024 3:13 pm CLINICAL HISTORY: Right ankle pain FINDINGS: Intramedullary tiny has been placed into the fibula. Soft tissue swelling is present 5 mm round density lies adjacent to the medial malleolus. It has a sclerotic border. It may be a frac ture fragment. It has a more chronic than acute appearance but should be correlated clinically No dislocation
--- NOTE | 2024-06-23 16:37 | ER ---
Nurse's Notes [facility] Name: Jose David Rangel Age: 84 yrs Sex: Male : 1940 Arrival Date: 06/23/2024 Time: 13:40 Bed 9 Private MD: Diagnosis: Fall on same level, unspecified;Pain in right ankle and joints of right foot;Pain in left ankle and joints of left foot Presentation: 06/23 13:49 Chief complaint: Patient states: tripped and fell over phone cord, injured his right iw foot, happened about 10 am today. Coronavirus screen: At this time, the client does not indicate any symptoms associated with coronavirus-19. Ebola Screen: No symptoms or risks identified at this time. Risk Assessment: Do you want to hurt yourself or someone else? Patient reports no desire to harm self or others. Onset of symptoms was June 23, 2024. 13:49 Method Of Arrival: Wheelchair iw 13:49 Acuity: ANALILIA 4 iw 17:10 Initial Sepsis Screen: Does the patient meet any 2 criteria? No. Patient's initial ap3 sepsis screen is negative. Does the patient have a suspected source of infection? No. Patient's initial sepsis screen is negative. Triage Assessment: 17:09 General: Appears in no apparent distress. Behavior is calm, cooperative, appropriate ap3 for age. Historical: - Allergies: 13:58 Codeine; iw - PMHx: 13:58 Hyperlipidemia; Myocardial infarction; Congestive heart failure; Atrial fibrillation; iw Hypertension; - PSHx: 13:58 Ankle; CABG; Appendectomy; colonscopy; defibrillator; iw - Immunization history:: Adult Immunizations up to date. - Infectious Disease History:: Denies. - Social history:: Smoking status: unknown. Screenin:08 [facility] ED Fall Risk Assessment (Adult) History of falling in the last 3 months, ap3 including since admission Yes- fall prone (multiple falls) (3 pts) Confusion or Disorientation No (0 pts) Intoxicated or Sedated No (0 pts) Impaired Gait Yes (1 pt) Mobility Assist Device Used Yes (1 pt) Altered Elimination No (0 pt) Score/Fall Risk Level 3 or more points = High Risk Oriented to surroundings, Maintained a safe environment, Educated pt \T\ family on fall prevention, incl call for assistance when getting out of bed, Assessed \T\ reinforced patient's understanding of fall precautions, Hourly rounding (assess needs \T\ fall precautionary measures) done, Used ambulatory aids as needed (educated on \T\ assisted with), Used gait belt as appropriate Implemented a Fall Risk Plan of Care, Apply high fall risk patient identification: yellow non skid footwear/ fall signage, Remained w/in arm's length of patient and in sight while toileting, Offered frequent toileting (1:1 observation), Remained with patient while ambulating, Utilized family, sitter, or virtual disassembler as indicated. Abuse screen: Denies threats or abuse. Nutritional screening: No deficits noted. Tuberculosis screening: No symptoms or risk factors identified. Assessment: 17:08 General: Appears in no apparent distress. Behavior is calm, cooperative, appropriate ap3 for age. Pain: Complains of pain in right foot and left foot Pain began 2-3 days ago. Neuro: Level of Consciousness is awake, alert, obeys commands, Oriented to person, place, time, situation, Appropriate for age. Cardiovascular: Patient's skin is warm and dry. Respiratory: Airway is patent Respiratory effort is even, unlabored, Respiratory pattern is regular, symmetrical. Vital Signs: 13:53 BP 108 / 61; Pulse 58; Resp 16; Temp 96.8; Pulse Ox 96% ; Weight 69.85 kg; Height 5 ft. kb 2 in. ; Pain 0/10; 17:10 Pulse 57; Resp 17; Temp 97.1; Pulse Ox 97% ; ap3 13:53 Body Mass Index 28.17 (69.85 kg, 157.48 cm) kb 13:53 Pain Scale: Adult kb ED Course: 13:43 Patient arrived in ED. ra3 13:45 Obdulia Kenney FNP-C is PHCP. kb 13:45 Everton Guy MD is Attending Physician. kb 13:50 Triage completed. iw 13:59 Arm band placed on. iw 15:15 Ankle Left 3 View XRAY In Process Unspecified. EDMS 15:15 Ankle Right 3 View XRAY In Process Unspecified. EDMS 15:15 Foot Left 3 View XRAY In Process Unspecified. EDMS 15:15 Foot Right 3 View XRAY In Process Unspecified. EDMS 15:15 Hip Right 2 View XRAY In Process Unspecified. EDMS 15:15 Pelvis XRAY In Process Unspecified. EDMS 17:09 No provider procedures requiring assistance completed. Patient did not have IV access ap3 during this emergency room visit. 17:10 Patient has correct armband on for positive identification. Adult w/ patient. Provided ap3 Education on: discharge instructions. Administered Medications: No medications were administered Medication: 17:10 VIS not applicable for this client. ap3 Outcome: 16:36 Discharge ordered by . fiorella 17:08 Patient left the ED. bc6 17:09 Discharged to home via wheelchair, ap3 17:09 Condition: good 17:09 Discharge instructions given to patient, family, Instructed on discharge instructions, follow up and referral plans. Demonstrated understanding of instructions, follow-up care, Signatures: Dispatcher [employer] Obdulia Tejeda, AUTOMATION TENDER-C AUTOMATION TENDER-Yokasta Cotto, RN MINNA iw Angelika Puga RN RN ap3 Gabby Mejia [facility] Cony Macario 3
--- NOTE | 2024-06-23 16:37 | EDPHYS ---
Physician Documentation [facility] Name: Jose David Rangel Age: 84 yrs Sex: Male : 1940 Arrival Date: 06/23/2024 Time: 13:40 Bed 9 Private MD: ED Physician Everton Guy HPI: 06/23 13:50 This 84 yrs old Male presents to ER via Unassigned with complaints of Fall Injury, Foot kb Pain - BL swelling/bruised. 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 States he tripped over a cord on the ground. Denies any pain, hitting head, loc. . Historical: - Allergies: 13:58 Codeine; iw - PMHx: 13:58 Hyperlipidemia; Myocardial infarction; Congestive heart failure; Atrial fibrillation; iw Hypertension; - PSHx: 13:58 Ankle; CABG; Appendectomy; colonscopy; defibrillator; iw - Immunization history:: Adult Immunizations up to date. - Infectious Disease History:: Denies. - Social history:: Smoking status: unknown. ROS: 13:51 Constitutional: As per HPI kb Exam: 13:51 Constitutional: This is a well developed, well nourished patient who is awake, alert, kb and in no acute distress. Head/Face: Normocephalic, atraumatic. ENT: Moist Mucous membranes Neck: Trachea midline, no thyromegaly or masses palpated, and no cervical lymphadenopathy. Supple, full range of motion without nuchal rigidity, or vertebral point tenderness. No Meningismus. Cardiovascular: Regular rate Respiratory: Respirations even and unlabored. No increased work of breathing. Talking in full sentences Abdomen/GI: Soft, non-tender. No distention Back: No spinal tenderness. No costovertebral tenderness. Full range of motion. Neuro: Awake and alert, GCS 15, oriented to person, place, time, and situation. Moves all extremities. Normal gait. 13:51 Musculoskeletal/extremity: Extremities: grossly normal except: noted in the right leg and left leg: swelling, "normal for pt, has been taking lasix as prescribed", noted in the dorsum of right foot and dorsum of left foot: ecchymosis, swelling, ROM: intact in all extremities, Circulation is intact in all extremities. Sensation intact. Weight bearing: can bear weight with assistance only, uses cane, Vital Signs: 13:53 BP 108 / 61; Pulse 58; Resp 16; Temp 96.8; Pulse Ox 96% ; Weight 69.85 kg; Height 5 ft. kb 2 in. ; Pain 0/10; 17:10 Pulse 57; Resp 17; Temp 97.1; Pulse Ox 97% ; ap3 13:53 Body Mass Index 28.17 (69.85 kg, 157.48 cm) kb 13:53 Pain Scale: Adult kb MDM: 13:45 Patient medically screened. kb 13:53 Differential diagnosis: contusion, fracture. Data reviewed: vital signs, nurses notes. kb Historians other than the Patient: Spouse/Significant Other: . 13:57 ED course: Pt had no tenderness or pain upon palpation of hips. Just prior to leaving kb room pt states "maybe I do have a little twinge in this hip" (pointed to right). x-rays ordered. 16:34 Counseling: I had a detailed discussion with the patient and/or guardian regarding the kb historical points, exam findings, and any diagnostic results supporting the discharge/admit diagnosis, radiology results, the need for outpatient follow up, a orthopedic surgeon, to return to the emergency department if symptoms worsen or persist or if there are any questions or concerns that arise at home. 06/23 13:50 Order name: Ankle Left 3 View XRAY; Complete Time: 16:13 kb 06/23 13:50 Order name: Ankle Right 3 View XRAY; Complete Time: 16:33 kb 06/23 13:50 Order name: Foot Left 3 View XRAY; Complete Time: 16:13 kb 06/23 13:50 Order name: Foot Right 3 View XRAY; Complete Time: 16:13 kb 06/23 13:56 Order name: Hip Right 2 View XRAY; Complete Time: 16:13 kb 06/23 13:56 Order name: Pelvis XRAY; Complete Time: 16:13 kb Administered Medications: No medications were administered Disposition Summary: 06/23/24 16:36 Discharge Ordered Notes: Location: Home kb Condition: Stable kb Diagnosis - Fall on same level, unspecified kb - Pain in right ankle and joints of right foot kb - Pain in left ankle and joints of left foot kb Followup: kb - With: Emergency Department - When: As needed - Reason: Worsening of condition Followup: kb - With: Private Physician - When: 2 - 3 days - Reason: Recheck today's complaints, Continuance of care, Re-evaluation by your physician Discharge Instructions: - Discharge Summary Sheet kb - Musculoskeletal Pain kb Forms: - Medication Reconciliation Form kb - Antibiotic Education kb - Prescription Opioid Use kb - Patient Portal Instructions kb - Leadership Thank You Letter kb Addendum: 06/26/2024 15:50 Co-signature as Attending Physician, Everton Guy MD I agree with the assessment and c white plan of care. Signatures: Dispatcher [employer] EDMS Obdulia Kenney, STAMPING MILL TENDER-C STAMPING MILL TENDER-Everton Mejia MD MD cha Williams, Irene, RN RN Angelika Justin RN RN ap3 Corrections: (The following items were deleted from the chart) 06/23 13:50 13:50 Ankle Left 3 View+RAD.RAD.BRZ ordered. EDMS EDMS 13:50 13:50 Ankle Right 3 View+RAD.RAD.BRZ ordered. EDMS EDMS 13:50 13:50 Foot Left 3 View+RAD.RAD.BRZ ordered. EDMS EDMS 13:50 13:50 Foot Right 3 View+RAD.RAD.BRZ ordered. 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 States he tripped over a cord on the ground. Denies any other pain, hitting head, loc. . kb
[2024-06-23 17:19] VITALS: BP 108/61; TEMP 96.8; O2SAT 96
== END 2024-06-23 17:08 | disposition home or self-care (01) ==
LOC: ER 13:40
DX: M25.572 Pain in left ankle and joints of left foot (principal); M25.571 Pain in right ankle and joints of right foot; W18.30XA Fall on same level, unspecified, initial encounter; Z95.1 Presence of aortocoronary bypass graft; Z95.810 Presence of automatic (implantable) cardiac defibrillator
CPT/HCPCS: 72170; 99282

== ENCOUNTER 2024-07-19 08:09 | Day surgery (SDC) | payer OTHER ==
[2024-07-19 09:14] LABS: MPV 10.5 fL (7.6-11.3); Platelets 56 thou/uL (152-406)
[2024-07-19 09:27] LABS: PT Prothrombin Time 13.2 SECONDS (9.4-12.5); PTT, Activated Partial Thromb 30.7 SECONDS (24.3-36.9); Protime INR 1.18
[2024-07-19] MEDS ORDERED: NA CHLORIDE 0.9% 500 ML ONE (09:35)
[2024-07-19] MEDS ORDERED: FLUMAZENIL 0.1 MG/ML (5 mL VIAL) IV ONE (09:51)
[2024-07-19] MEDS ORDERED: NALOXONE HCL 2 MG/2 ML VIAL ONE (09:51)
[2024-07-19] MEDS ORDERED: ONDANSETRON 4 MG/2 ML VIAL ONE (09:52)
[2024-07-19] MEDS ORDERED: FENTANYL CITR 100 MCG/2 ML ONE (09:56)
[2024-07-19] MEDS ORDERED: MIDAZOLAM HCL 2 MG/2 ML INJ ONE (09:57)
[2024-07-19 10:04] LABS: Absolute Eosinophils 0.2 K/uL (0-0.5); Absolute Lymphocytes (CBC) 1.4 K/uL (0.7-4.9); Absolute Monocytes 0.4 K/uL (0.1-1.3); Absolute Neutrophil 2.7 K/uL (1.8-8.0); Basophils % 0.7 % (0-1.3); Hematocrit 36.9 % (39.6-49.0); Hemoglobin 12.1 g/dL (13.6-17.9); Lymphocytes % 29.8 % (15.3-44.8); MCHC 32.9 g/dL (32.0-36.0); MCV 106.6 fL (80-100); MPV 10.7 fL (7.6-11.3); Monocytes % 8.9 % (3.3-12.3); Neutrophils % 56.6 % (41.7-73.7); Nucleated Red Blood Cells % 0.1 % (0-0); Platelets 55 thou/uL (152-406); RBC Red Blood Cell Count 3.46 M/uL (4.33-5.43); Red Cell Distribution Width 16.9 % (12.1-15.2)
--- NOTE | 2024-07-19 11:17 | RAD REPORT ---
PROCEDURE: CT-GUIDED BIOPSY Pre-procedure diagnosis: Possible leukemia Post-procedure diagnosis: Same as above. COMPLICATIONS: No immediate complications. IMPRESSION: CT-guided bone marrow aspiration and core biopsy PROCEDURE DETAILS: Consent: Informed consent for the procedure including risks, benefits and alternatives was obtained a nd time-out was performed prior to the procedure. Sedation: Moderate sedation (conscious sedation) Administered by: Nurse, or other independent traine d observer, with level of consciousness and vital signs continuously monitored. Total sedation administered: 0.5 mL Versed and 25 mcg Fentanyl. Total intra-service sedation time: 30 minutes. Biopsy: Local anesthesia was administered. Under CT guidance, the biopsy needle was advanced to the t arget and biopsy was performed. [id number]. Number of specimens: 1 core. Approximately 15 cc of bone marrow aspirate. Additional sampling description: None. Preliminary assessment of sample adequacy: Not applicable. The biopsy needle was removed and a sterile dressing was applied. Post-biopsy imaging findings: No immediate complications seen. Additional Details: Additional description of procedure: Intermittent CT fluoroscopic guidance. Estimated blood loss: Less than 10 mL.
[2024-07-19 12:32] LABS: Atypical Lymphocytes 9 %; Blood Morphology Comment NOTED (NOT SEEN); Differential Total Cells Count 100; Eosinophils 3 % (0-3); Lymphocytes 30 % (15-42); Metamyelocytes 1 % (0-0); Monocytes 9 % (0-10); Platelet Estimate DECR; Segmented Neutrophils 47 % (40-80)
[2024-07-19 12:33] LABS: Macrocytosis 1+
[2024-07-19 13:19] LABS: Cytogenetics, Bone Marrow SENT; Flow Cytometry, Bone Marrow SENT
[2024-07-19 13:58] VITALS: BMI 26.4
[2024-07-19 14:11] VITALS: BP 110/55; TEMP 97.2; O2SAT 95
== END 2024-07-19 12:26 | disposition home or self-care (01) ==
LOC: DS 08:09
PROVIDERS: ATTEND Internal Medicine
DX: D69.59 Other secondary thrombocytopenia (principal); I48.91 Unspecified atrial fibrillation; N18.31 Chronic kidney disease, stage 3a; I50.89 Other heart failure
CPT/HCPCS: 85025; 36415; 88313; 85049; 85610; 85044; 88305; 85730; 38221; J2250; J3010; J7040; J2310; J2405

== ENCOUNTER 2024-10-07 14:52 | Inpatient (IN) | payer OTHER ==
--- NOTE | 2024-10-07 18:01 | RAD REPORT ---
EXAMINATION: ONE VIEW CHEST XR CLINICAL INDICATION: edema TECHNIQUE: Frontal chest projection is submitted. Examination is limited by patient positioning and t echnique. COMPARISON: 05/09/2024 FINDINGS: Mild interstitial pulmonary edema. Small left pleural effusion. The heart is moderately enlarged. No displaced fractures identified. Sternotomy wires. Single-lead pacer/stimulator device. IMPRESSION: Mild CHF is possible.
[2024-10-07 18:44] LABS: Absolute Eosinophils 0.1 K/uL (0-0.5); Absolute Lymphocytes (CBC) 0.6 K/uL (0.7-4.9); Absolute Monocytes 0.8 K/uL (0.1-1.3); Absolute Neutrophil 2.7 K/uL (1.8-8.0); Basophils % 0.4 % (0-1.3); Eosinophils % 3.5 % (0-4.4); Hematocrit 34.3 % (39.6-49.0); Hemoglobin 11.3 g/dL (13.6-17.9); Lymphocytes % 14.2 % (15.3-44.8); MCH 35.9 pg (27.0-35.0); MCV 108.6 fL (80-100); Monocytes % 18.7 % (3.3-12.3); Neutrophils % 63.2 % (41.7-73.7); Nucleated Red Blood Cells % 0.1 % (0-0); Platelets 19 thou/uL (152-406); RBC Red Blood Cell Count 3.16 M/uL (4.33-5.43); Red Cell Distribution Width 16.4 % (12.1-15.2)
[2024-10-07 18:45] LABS: PT Prothrombin Time 14.6 SECONDS (9.4-12.5); Protime INR 1.31
[2024-10-07 18:57] LABS: Sqamous Epithelial None Seen /HPF (None Seen); Urine Bacteria <20 /HPF (<20); Urine Micro Reflex YN NO BILL MICROSCOPIC; Urine Mucus Slight /HPF (None Seen); Urine RBC <5 /HPF (None Seen); Urine WBC <5 /HPF (<5)
[2024-10-07 18:59] LABS: Albumin 3.1 g/dL (3.4-5.0); Albumin/Globulin Ratio 0.9 (1.1-1.8); Anion Gap 8.6 mEq/L (5.0-15.0); Bilirubin Direct 0.6 mg/dL (0-0.2); Bilirubin Indirect, Calculated 0.4 mg/dL (0.2-0.8); Globulin 3.3 g/dL (2.3-3.5); Magnesium 1.9 mg/dL (1.6-2.4); Potassium 4.6 mEq/L (3.5-5.1); Protein, Total 6.4 g/dL (6.4-8.2); Troponin High Sensitivity 21.8 pg/mL (<58.9)
[2024-10-07 19:01] LABS: Specific Gravity 1.007 (1.005-1.030); Urine Bilirubin NEGATIVE (Negative); Urine Blood Negative (Negative); Urine Clarity Clear (Clear); Urine Color Light-Yellow (Yellow); Urine Glucose NEGATIVE (Negative); Urine Ketones NEGATIVE (Negative); Urine Nitrite NEGATIVE (Negative); Urine Protein NEGATIVE (Negative); Urine Urobilinogen Normal (Normal)
--- NOTE | 2024-10-07 19:17 | RAD REPORT ---
EXAMINATION: US BILATERAL LOWER EXTREMITY VENOUS DOPPLER CLINICAL INDICATION: SWELLING TECHNIQUE: Complete bilateral duplex sonography of the BILATERAL lower extremity veins was performed. The examination included compression for vein patency, color Doppler imaging and flow augmentation in response to distal compression of the distal external iliac, common femoral, femoral, popliteal, t ibial, and great and small saphenous veins. COMPARISON: No prior exam. FINDINGS: Duplex sonography testing of the veins of the BILATERAL lower extremity was performed. Color flow blair ging shows all veins to be compressible with [id number] color filling. Pulsatile and phasic flow is present within all lower extremity deep and superficial veins examined. IMPRESSION: There is no deep vein or superficial vein thrombosis.
--- NOTE | 2024-10-07 19:24 | RAD REPORT ---
EXAMINATION: ULTRASOUND DUPLEX OF SCROTUM AND TESTICLES CLINICAL INDICATION: Male, 84 years, SWELLING TECHNIQUE: Duplex scan of the scrotal contents was performed including real-time color and spectral D oppler ultrasonography with arterial inflow and venous outflow. COMPARISON: No prior exam. FINDINGS: RIGHT TESTICLE AND EPIDIDYMIS: The right testicle is normal in size, measuring 4.0 x 3.1 x 2.7 cm. Normal, homogeneous echotexture with no focal lesion seen. The right epididymis is normal. Color Doppler flow in the right testicle is normal. LEFT TESTICLE AND EPIDIDYMIS: The left testicle is normal in size, measuring 3.7 x 3.0 x 2.7 cm. Normal, homogeneous echotexture with no focal lesion seen. The left epididymis is normal. Color Doppler flow in the left testicle is normal. ADDITIONAL FINDINGS: Thickened scrotal wall with small hydrocele bilaterally. IMPRESSION: No acute abnormalities detected. Scrotal wall thickening noted, correlate clinically.
[2024-10-07 20:29] LABS: Platelet Estimate DECR; White Blood Cell Scan OK (OK)
[2024-10-07 20:30] LABS: Anisocytosis 1+; Blood Morphology Comment NOTED (NOT SEEN); Poikilocytosis 1+
--- NOTE | 2024-10-07 20:50 | ER ---
Nurse's Notes [facility] Name: Jose David Rangel Age: 84 yrs Sex: Male : 1940 Arrival Date: 10/07/2024 Time: 14:52 Bed 13 Private MD: Diagnosis: Acute kidney failure, unspecified Presentation: 10/07 15:36 Chief complaint: Spouse and/or significant other states: difficulty urinating onset cm10 today. last voided 1 hr ago. pt also has swelling to testicles and penis. Coronavirus screen: Client denies travel out of the [place] in the last 14 days. Ebola Screen: No symptoms or risks identified at this time. Initial Sepsis Screen: Does the patient meet any 2 criteria? No. Patient's initial sepsis screen is negative. Does the patient have a suspected source of infection? No. Patient's initial sepsis screen is negative. Risk Assessment: Do you want to hurt yourself or someone else? Patient reports no desire to harm self or others. Onset of symptoms was October 07, 2024. 15:36 Method Of Arrival: Wheelchair cm10 15:36 Acuity: ANALILIA 3 cm10 Triage Assessment: 15:41 General: Appears in no apparent distress. comfortable, Behavior is calm, cooperative. cm10 Neuro: No deficits noted. Level of Consciousness is awake, alert, obeys commands, Oriented to person, place, time, situation, Appropriate for age. Respiratory: No deficits noted. Airway is patent Respiratory effort is even, unlabored, Respiratory pattern is regular, symmetrical. Historical: - Allergies: 15:38 Codeine; cm10 - Home Meds: 15:38 tamsulosin 0.4 mg Oral capsule daily [Active]; bumetanide 2 mg oral tablet 1 tab every cm10 other day [Active]; omeprazole 20 mg Oral Tablet daily [Active]; carvedilol 25 mg Oral tab 1 tab 2 times per day [Active]; Entresto 49-51 mg oral tablet 1 tab 2 times per day [Active]; potassium chloride 20 mEq Oral tablet, extended release 2 tabs 2 times per day [Active]; amiodarone 200 mg Oral tab 0.5 tabs 2 times per day [Active]; pravastatin 80 mg Oral tab 1 tab daily [Active]; - PMHx: 15:38 Atrial fibrillation; Congestive heart failure; Hyperlipidemia; Hypertension; Myocardial cm10 infarction; - PSHx: 15:38 Ankle; Appendectomy; CABG; colonscopy; defibrillator; cm10 - Immunization history:: Adult Immunizations up to date. - Infectious Disease History:: Denies. - Social history:: Smoking status: Patient denies any tobacco usage or history of. Screenin:35 [facility] ED Fall Risk Assessment (Adult) History of falling in the last 3 months, ph including since admission No falls in past 3 months (0 pts) Confusion or Disorientation No (0 pts) Intoxicated or Sedated No (0 pts) Impaired Gait No (0 pts) Mobility Assist Device Used No (0 pt) Altered Elimination No (0 pt) Score/Fall Risk Level 0 - 2 = Low Risk Oriented to surroundings, Maintained a safe environment, Hourly rounding (assess needs \T\ fall precautionary measures) done. Abuse screen: Denies threats or abuse. Denies injuries from another. Nutritional screening: No deficits noted. Tuberculosis screening: No symptoms or risk factors identified. Assessment: 18:35 General: Appears in no apparent distress. comfortable, slender, well groomed, Behavior ph is calm, cooperative, appropriate for age, Denies fever, feeling ill. Pain: Denies pain. Neuro: Level of Consciousness is awake, alert, obeys commands, Oriented to person, place, time, situation. Cardiovascular: Denies chest pain, fatigue, lightheadedness, shortness of breath, Patient's skin is warm and dry. Edema is 2+ to pubic area, left midcalf, left ankle, right midcalf and right ankle. Respiratory: Airway is patent Respiratory effort is even, unlabored. Derm: Skin is pink, warm \T\ dry. 19:00 Reassessment: Patient appears in no apparent distress at this time. Patient and/or kj2 family updated on plan of care and expected duration. Pain level reassessed. Patient is alert, oriented x 3, equal unlabored respirations, skin warm/dry/pink. 20:00 Reassessment: Patient appears in no apparent distress at this time. Patient and/or kj2 family updated on plan of care and expected duration. Pain level reassessed. Patient is alert, oriented x 3, equal unlabored respirations, skin warm/dry/pink. 21:00 Reassessment: Patient appears in no apparent distress at this time. Patient and/or kj2 family updated on plan of care and expected duration. Pain level reassessed. Patient is alert, oriented x 3, equal unlabored respirations, skin warm/dry/pink. 22:00 Reassessment: Patient appears in no apparent distress at this time. Patient and/or kj2 family updated on plan of care and expected duration. Pain level reassessed. Patient is alert, oriented x 3, equal unlabored respirations, skin warm/dry/pink. 22:48 Reassessment: Patient appears in no apparent distress at this time. Patient and/or kj2 family updated on plan of care and expected duration. Pain level reassessed. Patient is alert, oriented x 3, equal unlabored respirations, skin warm/dry/pink. Vital Signs: 15:36 BP 102 / 48; Pulse 68; Resp 16; Temp 98.6(TE); Pulse Ox 100% on R/A; Weight 68.04 kg; cm10 Height 5 ft. 3 in. ; Pain 8/10; 20:00 BP 95 / 52; Pulse 68; Resp 20; Pulse Ox 95% on R/A; kj2 21:00 BP 91 / 52; Pulse 68; Resp 18; Pulse Ox 95% on R/A; kj2 22:48 BP 95 / 51; Pulse 63; Resp 20; Pulse Ox 94% on R/A; kj2 15:36 Body Mass Index 26.57 (68.04 kg, 160.02 cm) cm10 15:36 Pain Scale: Adult cm10 ED Course: 14:54 Patient arrived in ED. ra3 15:08 Everton Cordero PA is PHCP. cp 15:08 Gabriela Nazario MD is Attending Physician. cp 15:38 Triage completed. cm10 15:41 Arm band placed on right wrist. Patient placed in waiting room. cm10 16:27 Queta Ferrera, RN is Primary Nurse. ph 17:46 XRAY Chest (1 view) In Process Unspecified. EDMS 18:35 Basic Metabolic Panel Sent. ph 18:35 CBC with Diff Sent. ph 18:35 LFT's Sent. ph 18:35 Magnesium Sent. ph 18:35 NT PRO-BNP Sent. ph 18:35 PT-INR Sent. ph 18:35 Troponin HS Sent. ph 18:36 Patient has correct armband on for positive identification. Bed in low position. Call ph light in reach. Side rails up X 1. traffic monitor specialist on. Pulse ox on. NIBP on. Door closed. Noise minimized. Warm blanket given. 18:36 No provider procedures requiring assistance completed. Initial lab(s) drawn, by me, ph sent to lab. EKG done, by ED staff, reviewed by Everton DAMICO. Inserted saline lock: 22 gauge in left antecubital area, using aseptic technique. Blood collected. Flushed with 10 mL NS. 19:00 Report received from MINNA Birch. kj2 19:14 US Extremity Venous W Compression Benny In Process Unspecified. EDMS 19:14 US Scrotum Testicles In Process Unspecified. EDMS 20:48 Alfonso Alas MD is Hospitalizing Provider. cp 22:42 Assisted to bathroom. sa1 22:50 Provided Education on: need for admission. kj2 22:51 Patient admitted, IV remains in place. kj2 Administered Medications: No medications were administered Medication: 18:36 VIS not applicable for this client. ph Outcome: 20:49 Decision to Hospitalize by Provider. cp 22:51 Admitted to Med/surg accompanied by tech, via stretcher, room 212, kj2 22:51 Condition: stable 22:51 Instructed on discharge instructions, follow up and referral plans. Demonstrated understanding of instructions, 23:08 Patient left the ED. kj2 Signatures: Dispatcher [employer] EDSD Queta Ferrera, RN Everton Johnston ph, PA PA cp Christin Valdez, RN RN 10 Cony Macario 3 [facility] Nica Linares, RN RN kj2
--- NOTE | 2024-10-07 20:50 | EDPHYS ---
Physician Documentation [facility] Name: Jose David Rangel Age: 84 yrs Sex: Male : 1940 Arrival Date: 10/07/2024 Time: 14:52 Bed 13 Private MD: ED Physician Gabriela Nazario HPI: 10/07 17:15 This 84 yrs old Male presents to ER via Wheelchair with complaints of Urinary Retention.cp 17:15 The patient presents with urinary symptoms, difficulty urinating and decreased urine cp output. Onset: The symptoms/episode began/occurred today. Associated signs and symptoms: Pertinent positives: increasing swelling of legs and scrotum and abdomen, Pertinent negatives: abdominal pain, diarrhea, fever, vomiting. Severity of symptoms: in the emergency department the symptoms are unchanged, despite home interventions. Historical: - Allergies: 15:38 Codeine; cm10 - Home Meds: 15:38 tamsulosin 0.4 mg Oral capsule daily [Active]; bumetanide 2 mg oral tablet 1 tab every cm10 other day [Active]; omeprazole 20 mg Oral Tablet daily [Active]; carvedilol 25 mg Oral tab 1 tab 2 times per day [Active]; Entresto 49-51 mg oral tablet 1 tab 2 times per day [Active]; potassium chloride 20 mEq Oral tablet, extended release 2 tabs 2 times per day [Active]; amiodarone 200 mg Oral tab 0.5 tabs 2 times per day [Active]; pravastatin 80 mg Oral tab 1 tab daily [Active]; - PMHx: 15:38 Atrial fibrillation; Congestive heart failure; Hyperlipidemia; Hypertension; Myocardial cm10 infarction; - PSHx: 15:38 Ankle; Appendectomy; CABG; colonscopy; defibrillator; cm10 - Immunization history:: Adult Immunizations up to date. - Infectious Disease History:: Denies. - Social history:: Smoking status: Patient denies any tobacco usage or history of. ROS: 17:20 Constitutional: Negative for body aches, chills, fever, poor PO intake, cp 17:20 Eyes: Negative for injury, pain, redness, and discharge, cp 17:20 Cardiovascular: Positive for edema, Negative for chest pain, palpitations, 17:20 Respiratory: Positive for shortness of breath, on exertion. 17:20 Abdomen/GI: Negative for vomiting, diarrhea, constipation, 17:20 : Positive for decreased urine output and difficulty urinating, Negative for hematuria, 17:20 Neuro: Negative for altered mental status, dizziness, headache, weakness, 17:20 All other systems are negative, Exam: 17:25 Head/Face: Normocephalic, atraumatic. cp 17:25 Constitutional: The patient appears in no acute distress, alert, awake, non-diaphoretic, non-toxic, well developed, well nourished, uncomfortable, 17:25 Eyes: Periorbital structures: appear normal, Conjunctiva: normal, no exudate, no cp injection, Sclera: no appreciated abnormality, Lids and lashes: appear normal, bilaterally, 17:25 ENT: External ear(s): are unremarkable, Nose: is normal, Mouth: Lips: moist, Oral mucosa: pink and intact, moist, Posterior pharynx: Airway: no evidence of obstruction, patent, 17:25 Chest/axilla: Inspection: normal, 17:25 Cardiovascular: Rate: normal, Edema: ankle edema, that is moderate, JVD: is not appreciated, 17:25 Respiratory: the patient does not display signs of respiratory distress, Respirations: shallow respirations, that is mild, Breath sounds: decreased breath sounds, that are mild, throughout, 17:25 Abdomen/GI: Inspection: distension, that is mild, Bowel sounds: active, all quadrants, Palpation: abdomen is soft and non-tender, in all quadrants, 17:25 : Male external genitalia: swelling, scrotal, that is moderate, 17:25 Skin: cellulitis, is not appreciated, no rash present. 17:25 Neuro: Orientation: to person, place \T\ time. Mentation: is normal, Vital Signs: 15:36 BP 102 / 48; Pulse 68; Resp 16; Temp 98.6(TE); Pulse Ox 100% on R/A; Weight 68.04 kg; cm10 Height 5 ft. 3 in. ; Pain 8/10; 20:00 BP 95 / 52; Pulse 68; Resp 20; Pulse Ox 95% on R/A; kj2 21:00 BP 91 / 52; Pulse 68; Resp 18; Pulse Ox 95% on R/A; kj2 22:48 BP 95 / 51; Pulse 63; Resp 20; Pulse Ox 94% on R/A; kj2 15:36 Body Mass Index 26.57 (68.04 kg, 160.02 cm) cm10 15:36 Pain Scale: Adult cm10 MDM: 15:42 Medical Screening Exam initiated cp 20:50 Data reviewed: vital signs, nurses notes, lab test result(s), EKG, radiologic studies, cp plain films, and as a result, I will admit patient. 20:50 Differential diagnosis: UTI, urinary retention, prostatitis, urethritis, chf, pulmonary cp edema. I considered the following discharge prescriptions or medication management in the emergency department Medications were administered in the Emergency Department. See MAR. Independent interpretation of the following test(s) in the Emergency Department EKG: See my EKG interpretation above. Care significantly affected by the following chronic conditions: Congestive Heart Failure, Chronic Kidney Disease. Counseling: I had a detailed discussion with the patient and/or guardian regarding the historical points, exam findings, and any diagnostic results supporting the discharge/admit diagnosis, lab results, radiology results, the need for further work-up and treatment in the hospital. 10/07 17:15 Order name: Urinalysis W/Microscopic; Complete Time: 19:57 10/07 19:57 Interpretation: Normal except: HYAL 10-20. 10/07 17:15 Order name: Basic Metabolic Panel; Complete Time: 19:57 10/07 19:57 Interpretation: Normal except: CL 109; BUN 48; CRE 2.20; GFR 29. 10/07 17:15 Order name: CBC with Diff; Complete Time: 20:34 10/07 19:57 Interpretation: Normal except: WBC 4.20; RBC 3.16; HGB 11.3; HCT 34.3; MCV 108.6; MCH cp 35.9; PLT 19; RDW 16.4; LYM% 14.2; MN% 18.7; LYMA 0.6. 10/07 17:15 Order name: LFT's; Complete Time: 19:57 10/07 17:15 Order name: Magnesium; Complete Time: 19:57 10/07 17:15 Order name: NT PRO-BNP; Complete Time: 19:57 10/07 19:58 Interpretation: Reviewed. 10/07 17:15 Order name: PT-INR; Complete Time: 19:57 10/07 17:15 Order name: Troponin HS; Complete Time: 19:57 cp 10/07 20:30 Order name: CBC Smear Scan; Complete Time: 20:34 EDOR 10/07 21:18 Order name: Urinalysis w/ reflexes EDOR 10/07 21:18 Order name: CBC with Automated Diff EDOR 10/07 21:18 Order name: Comprehensive Metabolic Panel EDOR 10/07 21:18 Order name: Magnesium EDOR 10/07 21:18 Order name: NT PRO-BNP EDOR 10/07 21:18 Order name: Phosphorus EDOR 10/07 21:18 Order name: Thyroid Stimulating Hormone EDOR 10/07 17:15 Order name: XRAY Chest (1 view); Complete Time: 19:57 cp 10/07 18:06 Order name: US Extremity Venous W Compression Benny; Complete Time: 19:57 cp 10/07 18:06 Order name: US Scrotum Testicles; Complete Time: 19:57 cp 10/07 20:07 Order name: US Rp Exam Complete 10/07 21:19 Order name: Echo with Doppler EDOR 10/07 22:02 Order name: US EDOR 10/07 21:18 Order name: CONS Physician Consult [facility] 10/07 17:15 Order name: Cardiac monitoring; Complete Time: 18:35 cp 10/07 17:15 Order name: EKG - Nurse/Tech; Complete Time: 18:35 10/07 17:15 Order name: IV Saline Lock; Complete Time: 18:35 10/07 17:15 Order name: Labs collected and sent; Complete Time: 18:35 10/07 17:15 Order name: O2 Per Protocol; Complete Time: 18:35 10/07 17:15 Order name: O2 Sat Monitoring; Complete Time: 18:35 10/07 19:58 Order name: Vital Signs 10/07 19:59 Order name: Blood Pressure Recheck 10/07 20:07 Order name: Bladder Scanner: post void cp Administered Medications: No medications were administered Disposition Summary: 10/07/24 20:49 Hospitalization Ordered Notes: Hospitalization Status: Inpatient Admission cp Provider: Alfonso Alas cp Location: Telemetry/MedSurg (Inpatient) cp Condition: Stable cp Problem: an acute exacerbation cp Symptoms: have improved cp Bed/Room Type: Standard cp Room Assignment: [facility](10/07/24 21:50) hw Diagnosis - Acute kidney failure, unspecified cp Forms: - Medication Reconciliation Form cp - SBAR form cp - Leadership Thank You Letter cp Addendum: 10/08/2024 23:47 Co-signature as Attending Physician, Gabriela Nazario MD I reviewed the patient's care s d2 provided by the Advanced Practice Provider and agree with the diagnosis and treatment plan. Signatures: Dispatcher [employer] EDMS Everton Cordero PA PA Gabriela Pereira MD MD sd2 Christin Valdez RN RN cm10 Mayela De La Torre Corrections: (The following items were deleted from the chart) 10/07 17:15 17:15 Urinalysis W/Microscopic+U.LAB.BRZ ordered. EDMS EDMS 17:15 17:15 BASIC METABOLIC PANEL+C.LAB.BRZ ordered. EDMS EDMS 17:15 17:15 CBC+H.LAB.BRZ ordered. EDMS EDMS 17:15 17:15 HEPATIC FUNCTION+C.LAB.BRZ ordered. EDMS EDMS 17:15 17:15 MAGNESIUM+C.LAB.BRZ ordered. EDMS EDMS 17:15 17:15 PROBNP+C.LAB.BRZ ordered. EDMS EDMS 17:15 17:15 PROTIME (+INR)+COAG.LAB.BRZ ordered. EDMS EDMS 17:15 17:15 Troponin High Sensitivity+C.LAB.BRZ ordered. EDMS EDMS 17:15 17:15 Chest Single View+RAD.RAD.BRZ ordered. EDMS EDMS 17:57 17:20 This 84 yrs old Male presents to ER via Wheelchair with complaints of Urinary cp Retention. cp 18:07 18:07 Scrotum Testicles+US.RAD.BRZ ordered. EDMS EDMS 21:50 20:49 cp hw
[2024-10-07] MEDS: BUMETANIDE 1 MG/4 ML VIAL ONE (21:21)
--- NOTE | 2024-10-07 21:23 | P.HP ---
Certification for Inpatient With expected LOS: <2 Midnights <Tanisha Cramer - Last Filed: 10/07/24 21:18> Patient admitted to: Inpatient With expected LOS: >2 Midnights <Kevin Alas - Last Filed: 10/08/24 00:03> Patient History Date of Service: 10/07/24 Reason for admission: CHF exacerbation History of Present Illness: 84-year-old man with a past medical history significant for BPH, CHF, HTN, HDL, and A-fib s/p CABG & ICD placement scented to the emergency room complaining of shortness of breath and chest pain x 1 day. Patient describes the chest pain as substernal, without radiation, and of an aching quality. Also, the patient states he has a history of CHF exacerbations, and his last exacerbation was 05/05. The patient states he has never been admitted to the ICU or intubated. He is a former smoker who quit in 1973. Additionally, the patient complains of a productive cough and swelling of his bilateral lower extremities, abdomen, and scrotal region. He is not on home oxygen. The patient states he has not attempted anything to alleviate his symptoms, and states nothing worsens. He denies fever, and urinary symptoms. Home medications list reviewed: Yes - Past Medical/Surgical History Diabetic: No -: Hypertension -: Hyperlipidemia -: Congestive heart failure -: Atrial fibrillation -: Defibrillator -: CAD -: skin cancer -: renal failure -: BPH -: CABG -: Colonoscopy -: Appendectomy -: Defibrillator -: Ankle surgery - Family History Father -: Hypertension - Social History Smoking Status: Former smoker (Quit in 1973) Alcohol use: No CD- Drugs: No Caffeine use: No <Tanisha Cramer - Last Filed: 10/07/24 21:18> Date of Service: 10/08/24 Home medications list reviewed: Yes - Past Medical/Surgical History Past Medical History: Reviewed- Non-Contributory Past Surgical History: Reviewed- Non-Contributory - Family History Family History: Reviewed- Non-Contributory - Social History Smoking Status: Former smoker <Kevin Alas - Last Filed: 10/08/24 00:03> Allergies codeine Allergy (Verified 07/19/24 08:46) RASH, ABD CRAMPS Home Medications: Pravastatin [Pravachol*] 80 mg PO DAILY 05/09/24 Tamsulosin [Flomax*] 0.4 mg PO BEDTIME 05/09/24 carvediloL [Coreg] 25 mg PO DAILY 05/09/24 Amiodarone HCl 100 mg PO BID #60 tab 05/13/24 Albuterol Inhaler [Ventolin Inhaler*] 1 puff IH PRN PRN 07/19/24 Bumetanide [Bumex] 2 mg PO DAILY 07/19/24 Potassium Chloride 20 meq PO BID 07/19/24 Sacubitril/Valsartan [Entresto 49 mg-51 mg Tablet] 1 tab PO BID 07/19/24 Review of Systems Respiratory: Cough (productive), Shortness of Breath, SOB with Excertion Cardiovascular: Chest Pain, Edema (bilateral lower extremity, abdomen, and scrotal region) Gastrointestinal: Distention <,Tanisha Q - Last Filed: 10/07/24 21:18> 10-point ROS is otherwise unremarkable <Kevin Alas - Last Filed: 10/08/24 00:03> Physical Examination - Vital Signs Temperature: 97.1 F Blood Pressure: 98/50 Pulse: 71 Respirations: 18 Pulse Ox (%): 97 (On room air) - Physical Exam General: Alert, Oriented x3 HEENT: Atraumatic, Normocephalic Neck: JVD not distended Respiratory: Crackles/rales (Bilaterally) Cardiovascular: Regular rate/rhythm, No gallops, No rubs, No murmurs, Edema Gastrointestinal: Normal bowel sounds, No tenderness, Distended Musculoskeletal: No erythema, No tenderness, No warmth, Swelling (Bilateral lower extremities) Neurological: Normal speech, Normal strength at 5/5 x4 extr, Sensation intact - Studies Laboratory Data (last 24 hrs) 10/07/24 10/07/24 10/07/24 18:30 18:30 18:30 WBC 4.20 L Hgb 11.3 L Hct 34.3 L Plt Count 19 L PT 14.6 H INR 1.31 Sodium 139 Potassium 4.6 BUN 48 H Creatinine 2.20 H Glucose 106 Magnesium 1.9 Total Bilirubin 1.0 AST 15 ALT 17 Alkaline Phosphatase 75 <Cramer,Tanisha Q - Last Filed: 12/26/24 21:18> - Physical Exam Integumentary: No rashes Lymphatics: No axilla or inguinal lymphadenopathy - Studies Laboratory Data (last 24 hrs) 10/07/24 10/07/24 10/07/24 18:30 18:30 18:30 WBC 4.20 L Hgb 11.3 L Hct 34.3 L Plt Count 19 L PT 14.6 H INR 1.31 Sodium 139 Potassium 4.6 BUN 48 H Creatinine 2.20 H Glucose 106 Magnesium 1.9 Total Bilirubin 1.0 AST 15 ALT 17 Alkaline Phosphatase 75 <Kevin Alas - Last Filed: 10/08/24 00:03> Assessment and Plan - Problems (Diagnosis) (1) CHF exacerbation Current Visit: Yes Status: Acute (2) Low platelet count Current Visit: Yes Status: Acute (3) BPH (benign prostatic hyperplasia) Current Visit: Yes Status: Acute (4) HTN (hypertension) Current Visit: Yes Status: Acute (5) Dyslipidemia (high LDL; low HDL) Current Visit: Yes Status: Acute (6) Atrial fibrillation Current Visit: No Status: Acute - Plan CHF exacerbation: Admit to floor Cardiology consulted IV Lasix ordered Telemetry ordered Echocardiogram ordered BNP and other labs ordered to trend CXR showed mild CHF Scrotal ultrasound revealed thickened scrotal wall and bilateral small hydroceles Ultrasound of bilateral lower extremities revealed no DVT Low platelet count: Chronically low, currently 19 Repeat CBC in early a.m. Holding heparin and Eliquis BPH: Flomax at bedtime HTN: Holding home medications at this time, patient's blood pressure currently is 98/50 HDL: Continue with home medication statin at bedtime A-fib: Continue with Entresto Home medication Telemetry ordered - Advance Directives Does patient have a Living Will: No Does patient have a Durable POA for Healthcare: No <Tanisha Cramer - Last Filed: 10/07/24 21:18> - Plan Patient was seen and examined and findings were noted Chief complaint and history independently verified and also along with RIDDHI Agree with the assessment and plan from the RIDDHI Acute on chronic CHF possibly systolic/diastolic Monitor closely on telemetry Started on aggressive diuresis X-ray findings consistent with CHF Oxygen supplementation as needed Continue home medications Titrate as needed Will obtain an echocardiogram Cardiology consult Thrombocytopenia noted Monitor platelet count Watch closely for any bleeding Antihypertensives titrated Discussed in detail with the patient and the family at the bedside GI/DVT prophylaxis Advanced directive full code Total clinical care time used was 48 minutes Discharge Plan: Home Plan to discharge in: Greater than 2 days - Code Status/Comfort Care Code Status: Full Code Time Spent Managing Pts Care (In Minutes): 40 <Kevin Alas - Last Filed: 10/08/24 00:03>
--- NOTE | 2024-10-07 22:01 | RAD REPORT ---
EXAMINATION: US RENAL ULTRASOUND CLINICAL INDICATION: kidney failure TECHNIQUE: Real-time ultrasonography of the abdomen was performed. COMPARISON: No prior exam. FINDINGS: RIGHT KIDNEY: Right renal length measurement: 9.7 x 4.9 x 4.9 cm. No hydronephrosis. Echogenic kidney noted. LEFT KIDNEY: Left renal length measurement: 10.0 x 4.9 x 4.4 cm. No hydronephrosis. Echogenic kidney noted. Benign cortical cysts. Largest cyst measuring 19 mm. URINARY BLADDER: Incompletely distended without gross abnormality detected. ADDITIONAL FINDINGS: Trace ascites. IMPRESSION: Echogenic kidneys bilaterally compatible with medical renal disease.
[2024-10-07 23:14] VITALS: BMI 24.6
[2024-10-08] MEDS: FUROSEMIDE 40 MG/4 ML VIAL IV SCH (00:13)
[2024-10-08 05:01] LABS: Absolute Eosinophils 0.1 K/uL (0-0.5); Absolute Lymphocytes (CBC) 0.6 K/uL (0.7-4.9); Absolute Monocytes 0.7 K/uL (0.1-1.3); Absolute Neutrophil 2.1 K/uL (1.8-8.0); Basophils % 0.4 % (0-1.3); Eosinophils % 3.7 % (0-4.4); Hematocrit 32.1 % (39.6-49.0); Hemoglobin 10.7 g/dL (13.6-17.9); Lymphocytes % 15.9 % (15.3-44.8); MCH 36.1 pg (27.0-35.0); MCHC 33.2 g/dL (32.0-36.0); MCV 108.8 fL (80-100); MPV 9.9 fL (7.6-11.3); Monocytes % 20.7 % (3.3-12.3); Neutrophils % 59.3 % (41.7-73.7); Nucleated Red Blood Cells % 0.2 % (0-0); RBC Red Blood Cell Count 2.95 M/uL (4.33-5.43)
[2024-10-08 05:06] LABS: Platelets 18 thou/uL (152-406)
[2024-10-08 05:21] LABS: AST/SGOT 13 U/L (15-37); Albumin 2.8 g/dL (3.4-5.0); Albumin/Globulin Ratio 0.9 (1.1-1.8); Alkaline Phosphatase 64 U/L (45-117); BUN Blood Urea Nitrogen 46 mg/dL (7-18); Bicarbonate 23 mEq/L (21-32); Glomerular Filtration Rate 30 ml/min (=/>90); Glucose Level 103 mg/dL (74-106); Magnesium 1.8 mg/dL (1.6-2.4); NT PRO-BNP 3684 pg/mL (<450); Phosphorus 3.1 mg/dL (2.5-4.9); Protein, Total 5.8 g/dL (6.4-8.2); Sodium Level 141 mEq/L (136-145)
[2024-10-08 05:23] LABS: ALT/SGPT < 14 U/L (16-61)
--- NOTE | 2024-10-08 08:07 | RAD REPORT ---
EXAMINATION: CT ABDOMEN AND PELVIS WITHOUT CONTRAST CLINICAL INDICATION: Male, 84 years old.abdominal pain TECHNIQUE: CT abdomen and pelvis was performed, without IV contrast, as per department protocol. Axia l, sagittal and coronal reconstructions were obtained. One or more of the following dose reduction techniques were used: Automated exposure control, adjustment of the mA and/or kV according to the pat ient size, and/or iterative reconstruction. Unless otherwise specified, incidental findings do not require dedicated imaging follow-up. [id number]. IV CONTRAST: Not administered. COMPARISON: 07/03/2020 FINDINGS: The lack of intravenous contrast limits the sensitivity of this exam for evaluation of solid visceral organs, vascular structures, and retroperitoneum. LOWER CHEST: Small bilateral pleural effusions and underlying atelectasis. Pacemaker lead. Calcificat ions of the left ventricular apex likely from remote myocardial infarct. Coronary calcifications. LIVER: Mildly nodular liver contour. No focal mass. GALLBLADDER/BILE DUCTS: Cholelithiasis. No CT evidence of acute cholecystitis.? PANCREAS: Pancreatic atrophy but no mass. SPLEEN: Splenomegaly. ADRENALS: Adrenal thickening but no mass. KIDNEYS AND URETERS: Low-density left renal lesions which are most consistent with cysts. No hydronep hrosis. No stones identified. URINARY BLADDER: Mild nonspecific circumferential bladder wall thickening. GASTROINTESTINAL TRACT: Wall thickening at the ascending colon likely related to underlying fluid sta tus. No bowel obstruction. PERITONEUM: Mild abdominopelvic free fluid. ABDOMINAL AORTA AND OTHER VESSELS: Heavily calcified abdominal aorta without aneurysm. REPRODUCTIVE ORGANS: No pathologic process. MUSCULOSKELETAL: Multilevel degenerative changes are present in the spine. No acute fracture. ADDITIONAL FINDINGS: Body wall edema. Pronounced scrotal edema. IMPRESSION: Anasarca including bilateral pleural effusions, ascites, body wall edema, and pronounced scrotal pastor a. Mild thickening at the ascending colon is likely related to underlying fluid status. No definite acute process otherwise identified. Incidental findings as noted above.
[2024-10-08] MEDS: METHYLPREDNISOLONE 125 MG INJ IV ONE (08:24)
[2024-10-08] MEDS: SACUBITRIL/VALSARTAN 49/51 MG TAB PO SCH (08:25)
[2024-10-08 11:58] LABS: Absolute Eosinophils 0.1 K/uL (0-0.5); Absolute Lymphocytes (CBC) 0.5 K/uL (0.7-4.9); Absolute Monocytes 0.6 K/uL (0.1-1.3); Absolute Neutrophil 2.5 K/uL (1.8-8.0); Basophils % 0.3 % (0-1.3); Eosinophils % 1.8 % (0-4.4); Hematocrit 33.7 % (39.6-49.0); Hemoglobin 11.1 g/dL (13.6-17.9); Lymphocytes % 13.8 % (15.3-44.8); MCH 35.7 pg (27.0-35.0); MCHC 32.9 g/dL (32.0-36.0); MCV 108.6 fL (80-100); MPV 11.1 fL (7.6-11.3); Monocytes % 16.5 % (3.3-12.3); Neutrophils % 67.6 % (41.7-73.7); Nucleated Red Blood Cells % 0.1 % (0-0); Platelets 23 thou/uL (152-406); Red Cell Distribution Width 15.9 % (12.1-15.2)
[2024-10-08 12:11] LABS: AST/SGOT 14 U/L (15-37); Albumin 2.9 g/dL (3.4-5.0); Albumin/Globulin Ratio 0.9 (1.1-1.8); Alkaline Phosphatase 75 U/L (45-117); Anion Gap 9.4 mEq/L (5.0-15.0); BUN Blood Urea Nitrogen 50 mg/dL (7-18); Bicarbonate 24 mEq/L (21-32); Globulin 3.2 g/dL (2.3-3.5); Glomerular Filtration Rate 29 ml/min (=/>90); Glucose Level 137 mg/dL (74-106); Potassium 4.4 mEq/L (3.5-5.1); Protein, Total 6.1 g/dL (6.4-8.2); Sodium Level 137 mEq/L (136-145)
[2024-10-08 12:12] LABS: ALT/SGPT < 14 U/L (16-61)
[2024-10-08] MEDS: CYANOCOBALAMIN 1000MCG/ML INJ IM ONE (13:15)
--- NOTE | 2024-10-08 13:36 | EKG ---
Test Date: 2024-10-07 Test Time: 18:39:57 Portfolio Accountant: VARUN MEASUREMENT RESULTS: Intervals: Rate: 63 LA: QRSD: 116 QT: 446 QTc: 456 [place]: P: LA: QRS: 117 T: -33 INTERPRETIVE STATEMENTS: Atrial flutter with variable AV block Anterolateral infarct, age undetermined Abnormal ECG Compared to ECG 05/09/2024 08:31:13 Sinus rhythm no longer present ST (T wave) deviation no longer present Possible ischemia no longer present Myocardial infarct finding still present Electronically Signed On 10-08-24 13:35:43 [employer] by Osbaldo Wong
[2024-10-08] MEDS: ALBUMIN HUMAN 25% 100 ML IV ONE (16:37)
--- NOTE | 2024-10-08 20:06 | P.PN ---
Subjective Date of Service: 10/08/24 Chief Complaint: CHF exacerbation Admitted for acute heart failure, does not look fluid volume overloaded, no respiratory distress, thrombocytopenia, no active bleeding noted <Jazzmine Mustafa - Last Filed: 10/08/24 20:07> Date of Service: 10/08/24 <Jose Chen - Last Filed: 10/11/24 02:23> Review of Systems 10-point ROS is otherwise unremarkable <Jazzimne Mustafa - Last Filed: 10/08/24 20:07> Physical Examination - Vital Signs Temperature: 97.5 F Blood Pressure: 100/61 Pulse: 68 Respirations: 16 Pulse Ox (%): 93 - Physical Exam General: Alert, In no apparent distress, Oriented x3 HEENT: Atraumatic, Normocephalic, PERRLA Neck: Supple, 2+ carotid pulse no bruit Respiratory: Normal air movement, Diminished Cardiovascular: Normal pulses, Regular rate/rhythm, Normal S1 S2 Capillary refill: <2 Seconds Gastrointestinal: Normal bowel sounds, Other (No rebound tenderness), Tenderness Musculoskeletal: No clubbing, No swelling Integumentary: No breakdown, No significant lesion Neurological: Normal gait, Normal speech, Normal strength at 5/5 x4 extr, Cranial nerves 3-12 intact - Studies Laboratory Data (last 24 hrs) 10/07/24 18:30 WBC 4.20 L Hgb 11.3 L Hct 34.3 L Plt Count 19 L <Jazzmine Mustafa - Last Filed: 10/08/24 20:07> Assessment And Plan - Plan Acute on chronic heart failure with reduced ejection fraction Anasarca noted on CT Bilateral pleural effusions Pulmonary hypertension History of A-fib atrial fibrillation Admit to floor MedSurg on telemetry Cardiology consulted IV Lasix, albumin ordered Telemetry ordered Echocardiogram ordered BNP and other labs ordered to trend CXR showed mild CHF Scrotal ultrasound revealed thickened scrotal wall and bilateral small hydroceles Ultrasound of bilateral lower extremities revealed no DVT Continue with Entresto Home medication Telemetry ordered Echocardiogram 05/09/2024 MODERATLY DEPRESSED LEFT VENTRICULAR EJECTION FRACTION 35-40%. 2. MODERATE GLOBAL HYPOKINESIS. 3. MODERATE (MITRAL REGURGITATION / AORTIC INSUFFICIENCY). 4. MODERATE TO SEVERE TRICUSPID REGURGITATION. 5. SEVERE PULMONARY HYPERTENSION WITH RIGHT VENTRICULAR SYSTOLIC PRESSURE GREATER THAN 60mmHg Currently on room air thrombocytopenia Current Visit: Yes Status: Acute Chronically low, currently 19, follows with oncology outpatient Repeat CBC in early a.m. Holding heparin and Eliquis Solu-Medrol given x 1 Type and cross, JESUS with CKD in the setting of prerenal CHF Gentle diuresis, trend kidney function Albumin given abdominal pain Current Visit: No Status: Acute CT ABDOMEN IMPRESSION: Anasarca including bilateral pleural effusions, ascites, body wall edema, and pronounced scrotal edema. Mild thickening at the ascending colon is likely related to underlying fluid status. No definite acute process otherwise identified. Incidental findings as noted above. HTN (hypertension) Dyslipidemia (high LDL; low HDL) Continue with home medication statin at bedtime BPH (benign prostatic hyperplasia) Current Visit: Yes Status: Acute Flomax at bedtime - Advance Directives Does patient have a Living Will: No Does patient have a Durable POA for Healthcare: No Time with patient 35 minutes Discharge Plan: Home - Code Status/Comfort Care Code Status: Full Code Critical Care: No Time Spent Managing PTS Care (In Minutes): 35 <Jazzmine Mustafa - Last Filed: 10/08/24 20:07> Date of Service: 10/08/24 Patient was seen and examined. Events of the last 24 hours have been noted. Spoke with with RIDDHI regarding patient's clinical picture after evaluating and examining the patient independently. I performed a substantial part of the MDM during this patient's care today. I personally made or approved the documented management plan and acknowledge its risk of complications. I agree with the findings and documentation provided in the RIDDHI's notes. Patient with anasarca; most likely related thirst patient. Possibly intravascularly depleted as renal function is elevated. Possible hypoperfusion. Hold off on Entresto. Discuss with Cardiology. <Jose Chen - Last Filed: 10/11/24 02:23>
[2024-10-08] MEDS: ATORVASTATIN 10 MG TAB PO SCH (20:11)
[2024-10-08] MEDS: TAMSULOSIN 0.4 MG SR CAP PO SCH (20:11)
[2024-10-09] MEDS: ALBUMIN HUMAN 25% 100 ML IV ONE (11:59)
[2024-10-09] MEDS: HYDROCORTISONE SUC 100 MG INJ IV ONE (11:59)
[2024-10-09] MEDS: WATER FOR INJ,STERILE 10 ML IV ONE (12:00)
--- NOTE | 2024-10-09 13:03 | P.CNS ---
Date of Consult: 10/09/24 Reason for Consult: JESUS Chief Complaint: CHF exacerbation History of Present Illness: 84-year-old man with a past medical history significant for BPH, CHF, HTN, HDL, and A-fib s/p CABG & ICD placement.. who presented due to legs and abd swelling that has been going for few days , pt was taking Bumex every other day at home .. upon my evaluation , pt feels comfortable lying flat on room air , no in respiratory distress , no N/V , no CP or abd pain , but still feels abd bloating .. edema got improved . Allergies codeine Allergy (Verified 07/19/24 08:46) RASH, ABD CRAMPS Home Medications: Pravastatin [Pravachol*] 80 mg PO DAILY 05/09/24 Tamsulosin [Flomax*] 0.4 mg PO BEDTIME 05/09/24 carvediloL [Coreg] 25 mg PO DAILY 05/09/24 Amiodarone HCl 100 mg PO BID #60 tab 05/13/24 Albuterol Inhaler [Ventolin Inhaler*] 1 puff IH PRN PRN 07/19/24 Bumetanide [Bumex] 2 mg PO DAILY 07/19/24 Potassium Chloride 20 meq PO BID 07/19/24 Sacubitril/Valsartan [Entresto 49 mg-51 mg Tablet] 1 tab PO BID 07/19/24 - Past Medical/Surgical History Diabetic: No -: Hypertension -: Hyperlipidemia -: Congestive heart failure -: Atrial fibrillation -: Defibrillator -: CAD -: skin cancer -: renal failure -: BPH -: CABG -: Colonoscopy -: Appendectomy -: Defibrillator -: Ankle surgery - Family History Father Medical History: Hypertension - Social History Smoking Status: Former smoker Alcohol use: No CD- Drugs: No Caffeine use: No Place of Residence: Home Review of Systems Unremarkable Cardiovascular: Edema Physical Examination Temp Pulse Resp BP Pulse Ox 97.5 F 69 12 112/60 90 L 10/09/24 12:00 10/09/24 12:00 10/09/24 12:00 10/09/24 12:00 10/09/24 12:00 General: Alert, In no apparent distress, Oriented x3, Cooperative HEENT: Atraumatic Respiratory: Clear to auscultation bilaterally, Normal air movement Cardiovascular: Edema Gastrointestinal: Normal bowel sounds, Soft and benign Conclusions/Impression: JESUS on CKD , not far away from the baseline , likely due to CR , hypoperfusion , relatively low BP , urine is clean pt mentioned good UOP with IV lasix 20 mg and Abumin , can give another lasix 20 mg tonight , can resume BUmex from tomorrow would monitor UOP , will check renal US to R/o any obstruction borderline HYpotensive : can hold on Entreso Hypervoelmic : lasix as above CHF
[2024-10-09] MEDS: FUROSEMIDE 20 MG/ 2ML VIAL IV ONE (13:05)
[2024-10-09] MEDS: MIDODRINE HCL 5 MG TABLET PO SCH (13:05)
[2024-10-10 06:52] LABS: Absolute Lymphocytes (CBC) 0.8 K/uL (0.7-4.9); Absolute Monocytes 3.9 K/uL (0.1-1.3); Absolute Neutrophil 5.5 K/uL (1.8-8.0); Basophils % 0.2 % (0-1.3); Eosinophils % 0.2 % (0-4.4); Hematocrit 36.6 % (39.6-49.0); Hemoglobin 11.9 g/dL (13.6-17.9); Lymphocytes % 8.2 % (15.3-44.8); MCH 35.6 pg (27.0-35.0); MCHC 32.6 g/dL (32.0-36.0); MPV 11.7 fL (7.6-11.3); Neutrophils % 53.4 % (41.7-73.7); Nucleated Red Blood Cells % 0.2 % (0-0); Platelets 24 thou/uL (152-406); RBC Red Blood Cell Count 3.35 M/uL (4.33-5.43); Red Cell Distribution Width 15.9 % (12.1-15.2)
[2024-10-10 07:03] LABS: AST/SGOT 17 U/L (15-37); Albumin 3.3 g/dL (3.4-5.0); Albumin/Globulin Ratio 1.1 (1.1-1.8); Alkaline Phosphatase 63 U/L (45-117); Anion Gap 15.5 mEq/L (5.0-15.0); BUN Blood Urea Nitrogen 72 mg/dL (7-18); Bicarbonate 19 mEq/L (21-32); Bilirubin Total 1.6 mg/dL (0.2-1.0); Globulin 3.1 g/dL (2.3-3.5); Glomerular Filtration Rate 20 ml/min (=/>90); Glucose Level 109 mg/dL (74-106); Magnesium 1.9 mg/dL (1.6-2.4); Potassium 4.5 mEq/L (3.5-5.1); Protein, Total 6.4 g/dL (6.4-8.2); Sodium Level 135 mEq/L (136-145)
[2024-10-10 07:04] LABS: ALT/SGPT < 14 U/L (16-61)
--- NOTE | 2024-10-10 07:07 | P.PN ---
Date of Service: 10/09/24 <Jazzmine Mustafa - Last Filed: 10/10/24 07:07> Subjective patient feeling somewhat better. Respiratory status has improved. Still some edema and working on diuresis. Repeat BUN/creatinine. Physical Examination - Vital Signs Reviewed - Physical Exam General: Alert, In no apparent distress, Oriented x3 Respiratory: Normal air movement, Diminished Cardiovascular: Normal pulses, Regular rate/rhythm, Normal S1 S2 Gastrointestinal: Normal bowel sounds, Other (No rebound tenderness), Tenderness Musculoskeletal: No clubbing, No swelling Integumentary: No breakdown, No significant lesion Neurological: No focal deficits Assessment And Plan - Assessment/Plan Acute on chronic heart failure with reduced ejection fraction Anasarca noted on CT Bilateral pleural effusions Pulmonary hypertension History of A-fib atrial fibrillation Patient is doing better. Diuresed effectively. Still has extra fluid on him which is 3rd space. Will continue with albumin Lasix drip. Monitor volume status closely. Anticipate discharge in a.m.. Thrombocytopenia Platelet stable. Continue to monitor. Abdominal pain Current Visit: No Status: Acute Cc to him with those abnormal wound findings so for the anasarca. HTN (hypertension) Dyslipidemia (high LDL; low HDL) Continue with home medication statin at bedtime BPH (benign prostatic hyperplasia) Current Visit: Yes Status: Acute Flomax at bedtime - Advance Directives Does patient have a Living Will: No Does patient have a Durable POA for Healthcare: No Time with patient 35 minutes Discharge Plan: Home - Code Status/Comfort Care Code Status: Full Code Critical Care: No Time Spent Managing PTS Care (In Minutes): 35 <Jazzmine Mustafa - Last Filed: 10/08/24 20:07> Date of Service: 10/08/24 Patient was seen and examined. Events of the last 24 hours have been noted. Spoke with with RIDDHI regarding patient's clinical picture after evaluating and examining the patient independently. I performed a substantial part of the MDM during this patient's care today. I personally made or approved the documented management plan and acknowledge its risk of complications. I agree with the findings and documentation provided in the RIDDHI's notes. Patient with anasarca; most likely related thirst patient. Possibly intravascularly depleted as renal function is elevated. Possible hypoperfusion. Hold off on Entresto. Discuss with Cardiology. <Jose Chen - Last Filed: 10/11/24 02:23> <Jose Chen - Last Filed: 10/11/24 02:30>
--- NOTE | 2024-10-10 07:08 | P.PN ---
Date of Service: 10/10/24 Subjective seen while resting in bed, no reported shortness of breath,93% RA Physical Examination - Vital Signs Reviewed - Physical Exam General: Alert, Oriented x3, afebrile Respiratory: Normal air movement, equal, unlabored Cardiovascular: Normal pulses, Regular rate/rhythm, Normal S1 S2 Gastrointestinal: Normal bowel sounds, Other (No rebound tenderness), Tenderness Musculoskeletal: No clubbing, No swelling Integumentary: No breakdown, No significant lesion Neurological: No focal deficits Assessment And Plan - Assessment/Plan Acute on chronic heart failure with reduced ejection fraction Anasarca noted on CT Bilateral pleural effusions Pulmonary hypertension History of A-fib atrial fibrillation Patient is doing better. aggressive diuresis Still has extra fluid on him which is 3rd space. cardiorenal syndrome trend BNP, kidney kunction, cardiorenal syndrome Will continue with albumin Lasix drip. Monitor volume status closely. Thrombocytopenia Platelet stable. Continue to monitor.improving, solumedrol given FU hem/onc after DC Abdominal pain Current Visit: No Status: Acute Cc to him with those abnormal wound findings so for the anasarca. HTN (hypertension) Dyslipidemia (high LDL; low HDL) Continue with home medication statin at bedtime BPH (benign prostatic hyperplasia) Current Visit: Yes Status: Acute Flomax at bedtime - Advance Directives Does patient have a Living Will: No Does patient have a Durable POA for Healthcare: No Time with patient 35 minutes Discharge Plan: Home - Code Status/Comfort Care Code Status: Full Code Critical Care: No Time Spent Managing PTS Care (In Minutes): 35 <Jazzmine Mustafa - Last Filed: 10/11/24 11:00> Chart has been reviewed. Events of the last 24 hours have been noted. Case discussed with RIDDHI. I performed a substantial part of the MDM during this patient's care today. I personally made or approved the documented management plan and acknowledge its risk of complications. I agree with the findings and documentation provided in the RIDDHI's notes Patient was seen by hematology. Patient will also be seen by nephrology. Adjusted renal medications. Will get further imaging studies to evaluate patient continue with physical therapy. Monitor platelet count. Monitor H&H. Patient will need to be monitored closely. <Jose Chen - Last Filed: 10/12/24 06:00>
[2024-10-10] MEDS: FUROSEMIDE 20 MG TABLET PO SCH (09:00)
[2024-10-10 10:19] LABS: Differential Total Cells Count 100; Lymphocytes 14 % (15-42); Segmented Neutrophils 60 % (40-80)
[2024-10-10 10:20] LABS: Anisocytosis 1+; Atypical Lymphocytes 17 %; Blood Morphology Comment NOTED (NOT SEEN); Macrocytosis 1+; Monocytes 8 % (0-10); Myelocytes 1 % (0-0); Platelet Estimate DECR
[2024-10-10] MEDS: ACETAMINOPHEN 325 MG TABLET PO PRN (11:16)
[2024-10-10] MEDS: ALBUMIN HUMAN 25% 100 ML IV SCH (15:46)
[2024-10-10] MEDS: FUROSEMIDE 40 MG/4 ML VIAL IV ONE ×2 (21:02→23:28)
[2024-10-10] MEDS: ALBUMIN HUMAN 25% 50 ML IV SCH ×2 (21:02→23:28)
--- NOTE | 2024-10-10 21:05 | CON ---
Date of Consultation: 10/10/2024 Reason For Consultation: CHF. History Of Present Illness: This is an 84-year-old male presented to the emergency room with shortne ss of breath, orthopnea, and lower extremity edema. Also, he gets on and off chest pain. No active chest pain, at this moment. Left-sided, no radiation, not related to exertion. Denies having any ac tive chest pain, at the present time. No nausea, vomiting, or diarrhea. No other complaints. Past Medical History: CHF, hypertension, dyslipidemia, atrial fibrillation, enlarged prostate. Past Surgical History: CABG and ICD placement. Medications: Refer to reconciliation sheet for detailed list. Allergies: CODEINE. Family History: No premature coronary artery disease or cancer. Social History: Does not smoke or drink. Does not use any drugs. Review of Systems: All systems reviewed and they were negative except as mentioned in the HPI. Physical Examination: Vital Signs: Reviewed. Head and Neck: Pupils are equal, reactive to light. Intact eye movements. No JVD. No cervical lym phadenopathy. Neck is supple. Thyroid is not enlarged. Lungs: Clear to auscultation bilaterally. No rhonchi, wheezing, or crackles. No accessory muscle u se. Heart: Irregular. No extra sounds. Abdomen: Soft, nontender. Bowel sounds positive. No organomegaly. No masses or hernia. No rigidi ty or rebound. Extremities: Trace edema bilaterally. No clubbing or cyanosis. Intact pulses. Skin: No rash. No nodule. Neurologic: Alert, awake, oriented x3. No acute focal deficit appreciated. Investigations: His creatinine has jumped to 3, BUN 72, hemoglobin is 11.9. Assessment And Recommendations: 1.Congestive heart failure exacerbation. At this moment, BUN and creatinine have jumped significant ly. Discontinue Lasix. He appears to be euvolemic and he might need gentle hydration especially if his blood pressure drops, and monitor BUN, creatinine, and electrolytes. 2.Acute on chronic renal failure with a jump in creatinine, likely due to overdiuresis. Recommend t o consult Nephrology. Stop Lasix for now and may be gentle hydration with half NS at 50 cc/hour over night and recheck his kidney function in the morning. 3.Systolic heart failure and last echo was in April. His ejection fraction is at 35% to 40%. This n eeds further evaluation. The patient has a bilingual customer service on an outpatient basis. 4.Chest pain with ejection fraction being on the low side. Recommend to obtain Lexiscan nuclear str ess test on him tomorrow and plan accordingly. /TAYLER Voice ID: [id number] Report ID: [id number]
--- NOTE | 2024-10-10 21:48 | RAD REPORT ---
EXAM: Chest Single View HISTORY: SOB COMPARISON: 10/07/2024 FINDINGS: LUNGS/PLEURA: Worsening bilateral interstitial and airspace disease. Small effusions likely present. MEDIASTINUM: The mediastinal silhouette is within normal limits. CARDIAC: Moderate cardiomegaly UPPER ABDOMEN: No significant abnormality. BONES: Sternotomy. No acute abnormality. LINES/TUBES/OTHER: Defibrillator present. IMPRESSION: Increasing pulmonary edema compared with 10/07/2024.
--- NOTE | 2024-10-11 10:53 | P.PN ---
Subjective Date of Service: 10/11/24 Chief Complaint: CHF exacerbation Subjective: No new changes Review of Systems 10-point ROS is otherwise unremarkable Physical Examination - Vital Signs Temperature: 97.4 F Blood Pressure: 123/57 Pulse: 63 Respirations: 20 Pulse Ox (%): 93 - Physical Exam General: Alert, In no apparent distress HEENT: Atraumatic, PERRLA, EOMI Neck: Supple, JVD not distended Respiratory: Clear to auscultation bilaterally, Normal air movement Cardiovascular: Regular rate/rhythm, Normal S1 S2, Edema Gastrointestinal: Normal bowel sounds, No tenderness Musculoskeletal: No tenderness Integumentary: No rashes Neurological: Normal speech, Normal tone, Normal affect Lymphatics: No axilla or inguinal lymphadenopathy - Studies Medications List Reviewed: Yes Assessment And Plan - Current Problems (Diagnosis) (1) Acute on chronic combined systolic and diastolic heart failure Current Visit: No Status: Acute Plan: Patient exam shows +2 BLE. would recommend Lasix 40 mg IV BID, starting now keep holding entresto due to worsening kidney function Monitor input and output closely Monitor and correct electrolytes lower coreg to 12.5 mg po BID due to soft BP. keep patient NPO after midnight for possible RHC in am if kidney function continue to worsen with diuresis (2) Atrial fibrillation Current Visit: No Status: Acute Plan: continue to hold anticoagulation for possible cath
[2024-10-11] MEDS ORDERED: REGADENOSON 0.4 MG/5 ML SYR IV ONE (10:57)
[2024-10-11] MEDS: LOPERAMIDE HCL 2 MG CAPSULE PO PRN (13:44)
--- NOTE | 2024-10-11 13:48 | P.PN ---
Subjective Date of Service: 10/11/24 Chief Complaint: CHF exacerbation Subjective: New changes He is complaining of large watery diarrhea x 2 overnight, nonbloody, no fever. Denied any nausea and vomiting, tolerating oral diet well, denied any chest pain or shortness of breath Review of Systems Other: Consitutional; fever(-), chills (-), rigor(-), night sweat(-), unintentional weight loss(-), malaise (-) HEENT; diplopia (-), rhinorrhea (-), epistaxis (-), otorrhea (-), otalgia (-) Respiratory; shortness of breath (-), wheezing (-), cough (-), sputum (-), pleuritic chest pain (-) Cardiovascular; chest pain (-), peripheral edema (-), paroxysmal nocturnal dyspnea (-), orthopnea (-) Gastrointestinal; nausea (-), vomiting (-), abdominal pain (-), diarrhea (+), constipation (-), melena (-), hematochezia (-) Genitourinary; urinary frequency (-), dysuria (-), urgency (-), flank pain (-), gross hematuria (-), incontinence (-) Skin; rash (-), pruritus (-) EVENT HOST; headache (-), paresthesia (-), numbness (-), paralysis (-) Physical Examination - Vital Signs Temperature: 97.6 F Blood Pressure: 116/67 Pulse: 75 Respirations: 20 Pulse Ox (%): 94 - Physical Exam Other Physical/Emotional Findings: - Physical Exam. General: Not acutely ill looking, in no apparent distress,. HEENT: Normocephalic, atraumatic, nonicteric sclera, nonanemic conjunctive. Neck: Supple, without JVD or goiter or thyroid mass. Respiratory: Normal breathing effort, clear to auscultation bilaterally, no crackles no wheezing or rhonchi. Cardiovascular: Regular rate and rhythm, S1, S2 normal, no murmur no gallop. Gastrointestinal: Normal bowel sounds, nondistended, nontender, No ascites, , No masses, no hepatosplenomegaly. Extremities : No clubbing, No peripheral edema, full range of motion, no deformity, no muscle atrophy, Guerra catheter containing romero-colored urine. Integumentary: No rashes, petechia, suspected lesions. Lymphatics: No axilla or cervical lymphadenopathy. Neurology; alert awake oriented x3, no focal neurologic deficit, normal affection . mood and behavior. - Studies Medications List Reviewed: Yes Assessment And Plan - Plan 84-year-old man with a past medical history significant for BPH, CHF, HTN, HDL, and A-fib s/p CABG & ICD placement scented to the emergency room complaining of shortness of breath and chest pain x 1 day. #1 acute exacerbation of heart failure with reduced ejection fraction status post AICD/PPM status post CABG The proBNP over 1000, chest x-ray shows pulmonary edema on admission, furosemide infusion changed to bolus, urine output 1.2 L over 24-hour, #2 JESUS on CKD BUN/creatinine 72/3.05, which is acceptable after aggressive diuresis, bicarb 19, normokalemia #3 acute diarrhea Will order C. difficile antigen, supportive treatment with Imodium as needed #4 acute urinary retention secondary to BPH Keep Guerra catheter in, tamsulosin #5 atrial fibrillation status post AICD/permanent pacemaker Heart rate at target, blood pressure reasonably controlled on amiodarone and carvedilol, I will continue current regimen Disposition; plan to discharge home in a few days
[2024-10-11 15:27] LABS: C.diff Antigen/Toxin Ag neg : Tox neg (NEG : NEG); CDIFF INTERNAL NEG CONTROL White Background (WHITE BKGD); STOOL CONSISTENCY Liquid/Semi-Solid
--- NOTE | 2024-10-11 21:03 | P.PN ---
Date of Service: 10/11/24 Vital Signs Temp Pulse Resp BP Pulse Ox 98.4 F 98 H 20 122/75 94 10/11/24 16:00 10/11/24 16:00 10/11/24 16:00 10/11/24 16:00 10/11/24 16:00 Medications Acetaminophen (Acetaminophen 325 Mg Tablet) 650 mg PO Q4HP PRN PRN Reason: Pain scale 5-7 (Moderate) Last Admin: 10/10/24 11:16 Dose: 650 mg Amiodarone HCl (Amiodarone Hcl 200 Mg Tab) 100 mg PO BID SAKSHI Atorvastatin Calcium (Atorvastatin 10 Mg Tab) 10 mg PO BEDTIME SAKSHI Last Admin: 10/10/24 21:13 Dose: 10 mg Carvedilol (Carvedilol 25 Mg Tab) 25 mg PO DAILY SAKSHI Loperamide HCl (Loperamide Hcl 2 Mg Capsule) 2 mg PO UD PRN PRN Reason: DIARRHEA Last Admin: 10/11/24 13:44 Dose: 2 mg Midodrine (Midodrine Hcl 5 Mg Tablet) 5 mg PO TID SAKSHI Last Admin: 10/11/24 13:44 Dose: 5 mg Tamsulosin HCl (Tamsulosin 0.4 Mg Sr Cap) 0.4 mg PO BEDTIME SAKSHI Last Admin: 10/10/24 21:13 Dose: 0.4 mg Assessment/ Plan: Nephrology No dyspnea No chest pain Nausea No acute events overnight Vitals, medications, blood work and imaging reviewed in the chart NAD. MMM. NCAT. Normal Respiratory Effort. S1S2. ND Abd. No C/C. LE Edema 1+. No rash. AAO. Normal speech. Guerra Dark Stage II JESUS may be due to diuresis CKD III -No NSAIDs HTN with CKD/ CHF -Continue Coreg Systolic Diastolic CHF, A/C -Lasix as ordered Anemia in chronic illness Macrocytosis Thrombocytopenia -Monitor CBC BPH with LUTS -Continue tamsulosin Case reviewed with Dr. Montano
[2024-10-11] MEDS: AMIODARONE HCL 200 MG TAB PO SCH (23:58)
[2024-10-12] MEDS: ONDANSETRON 4 MG/2 ML VIAL IV PRN (01:20)
[2024-10-12 06:08] LABS: Absolute Lymphocytes (CBC) 0.5 K/uL (0.7-4.9); Absolute Neutrophil 5.9 K/uL (1.8-8.0); Hemoglobin 11.5 g/dL (13.6-17.9); MCH 36.1 pg (27.0-35.0); MCHC 33.8 g/dL (32.0-36.0); MCV 106.9 fL (80-100); Monocytes % 23.7 % (3.3-12.3); Neutrophils % 70.3 % (41.7-73.7); Nucleated Red Blood Cells % 0.3 % (0-0); Platelets 28 thou/uL (152-406); RBC Red Blood Cell Count 3.19 M/uL (4.33-5.43); Red Cell Distribution Width 15.8 % (12.1-15.2)
[2024-10-12 06:25] LABS: Albumin 3.2 g/dL (3.4-5.0); Phosphorus 5.5 mg/dL (2.5-4.9); Uric Acid 10.6 mg/dL (3.5-7.2)
--- NOTE | 2024-10-12 07:11 | ECHO ---
HEIGHT: 5 ft 3 in WEIGHT: 139 lb 0 oz DATE OF STUDY: 10/08/[address]: Tanisha Cramer PA-C 2-DIMENSIONAL: YES M.MODE: YES DOPPLER: YES COLOR FLOW: YES TDS: NO PORTABLE: YES DEFINITY: NO BUBBLE STUDY: NO DIAGNOSIS: CONGESTIVE HEART FAILURE CARDIAC HISTORY: CATHERIZATION:YES SURGERY: NO PROSTHETIC VALVE: NO PACEMAKER: YES MEASUREMENTS (cm) DIASTOLIC (NORMALS) SYSTOLIC (NORMALS) IVSd 1.0 (0.6-1.2) LA Diam 3.5 (1.9-4.0) LVEF 35-40% LVIDd 4.9 (3.5-5.7) LVIDs 4.1 (2.0-3.5) %FS 16% LVPWd 1.2 (0.6-1.2) Ao Diam 3.4 (2.0-3.7) 2 DIMENSIONAL ASSESSMENT: RIGHT ATRIUM: NORMAL LEFT ATRIUM: NORMAL RIGHT VENTRICLE: PACEMAKER WIRE LEFT VENTRICLE: DEPRESSED EF TRICUSPID VALVE: SEVERE TRICUSPID REGURGITATION MITRAL VALVE: MILD MITRAL REGURGITATION PULMONIC VALVE: NORMAL AORTIC VALVE: MILD AORTIC INSUFFICIENCY PERICARDIAL EFFUSION: NONE AORTIC ROOT: NORMAL LEFT VENTRICULAR WALL MOTION: MODERATE GLOBAL HYPOKINESIS. DOPPLER/COLOR FLOW: SEE BELOW. COMMENTS: 1. MODERATELY DEPRESSED LEFT VENTRICULAR EJECTION FRACTION 35-40%. 2. MODERATE GLOBAL HYPOKINESIS. 3. MILD MITRAL AND AORTIC REGURGITATION. 4. SEVERE TRICUSPID REGURGITATION. 5. SEVERELY DEPRESSED DILATED INFERIOR VENA CAVA, INDICATION OF HIGH RIGHT ATRIAL PRESSURES. 6. POOR STUDY. TECHNOLOGIST: PO MONAHAN
[2024-10-12] MEDS: carvediloL 25 MG TAB PO SCH ×2 (09:00→15:41)
[2024-10-12] MEDS ORDERED: HOME MED 1 EA UNK (Bumetanide [Bumex] 2 MG Tablet) PO SCH (09:00)
--- NOTE | 2024-10-12 10:30 | P.PN ---
Subjective Date of Service: 10/12/24 Chief Complaint: CHF exacerbation Subjective: Improving He is still complaining of atery diarrhea nonbloody, no fever. Denied any nausea and vomiting, tolerating oral diet well, denied any chest pain or shortness of breath Review of Systems Other: Consitutional; fever(-), chills (-), rigor(-), night sweat(-), unintentional weight loss(-), malaise (-) HEENT; diplopia (-), rhinorrhea (-), epistaxis (-), otorrhea (-), otalgia (-) Respiratory; shortness of breath (-), wheezing (-), cough (-), sputum (-), pleuritic chest pain (-) Cardiovascular; chest pain (-), peripheral edema (-), paroxysmal nocturnal dyspnea (-), orthopnea (-) Gastrointestinal; nausea (-), vomiting (-), abdominal pain (-), diarrhea (+), constipation (-), melena (-), hematochezia (-) Genitourinary; urinary frequency (-), dysuria (-), urgency (-), flank pain (-), gross hematuria (-), incontinence (-) Skin; rash (-), 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 General: Not acutely ill looking, in no apparent distress,. HEENT: Normocephalic, atraumatic, nonicteric sclera, nonanemic conjunctive. Neck: Supple, without JVD or goiter or thyroid mass. Respiratory: Normal breathing effort, clear to auscultation bilaterally, no crackles no wheezing or rhonchi. Cardiovascular: Regular rate and rhythm, S1, S2 normal, no murmur no gallop. Gastrointestinal: Normal bowel sounds, nondistended, nontender, No ascites, , No masses, no hepatosplenomegaly. Extremities : No clubbing, No peripheral edema, full range of motion, no deformity, no muscle atrophy, Guerra catheter containing romero-colored urine. Integumentary: No rashes, petechia, suspected lesions. Lymphatics: No axilla or cervical lymphadenopathy. Neurology; alert awake oriented x3, no focal neurologic deficit, normal affection . mood and behavior. - Studies Medications List Reviewed: Yes Assessment And Plan - Plan 84-year-old man with a past medical history significant for BPH, CHF, HTN, HDL, and A-fib s/p CABG & ICD placement scented to the emergency room complaining of shortness of breath and chest pain x 1 day. #1 acute exacerbation of heart failure with reduced ejection fraction status post AICD/PPM status post CABG The proBNP over 1000, chest x-ray shows pulmonary edema on admission, off furosemide infusion changed to , urine output 1.3 L over 24-hour, I will resume Bumex 2 mg once a day, cardiology note appreciated, scheduled for cardiac cath today #2 JESUS on CKD BUN/creatinine stable 72/3., which is acceptable after aggressive diuresis, bicarb 19, normokalemia #3 acute diarrhea C. difficile antigen negative,, supportive treatment with Imodium as needed #4 acute urinary retention secondary to BPH Keep Guerra catheter in, tamsulosin #5 atrial fibrillation status post AICD/permanent pacemaker Heart rate at target, blood pressure reasonably controlled on amiodarone and carvedilol, I will continue current regimen Disposition; plan to discharge home in a couple of days
--- NOTE | 2024-10-12 10:53 | P.PN ---
Subjective Date of Service: 10/12/24 Chief Complaint: CHF exacerbation Subjective: No new changes, No C/O voiced, Tolerating diet, Ambulating, Improving Review of Systems 10-point ROS is otherwise unremarkable Physical Examination - Vital Signs Temperature: 97.4 F Blood Pressure: 103/63 Pulse: 87 Respirations: 16 Pulse Ox (%): 94 - Physical Exam General: Alert, In no apparent distress HEENT: Atraumatic, PERRLA, EOMI Neck: Supple, JVD not distended Respiratory: Clear to auscultation bilaterally, Normal air movement Cardiovascular: Regular rate/rhythm, Normal S1 S2 Gastrointestinal: Normal bowel sounds, No tenderness Musculoskeletal: No tenderness Integumentary: No rashes Neurological: Normal speech, Normal tone, Normal affect Lymphatics: No axilla or inguinal lymphadenopathy Other Physical/Emotional Findings: - Physical Exam. General: Not acutely ill looking, in no apparent distress,. HEENT: Normocephalic, atraumatic, nonicteric sclera, nonanemic conjunctive. Neck: Supple, without JVD or goiter or thyroid mass. Respiratory: Normal breathing effort, clear to auscultation bilaterally, no crackles no wheezing or rhonchi. Cardiovascular: Regular rate and rhythm, S1, S2 normal, no murmur no gallop. Gastrointestinal: Normal bowel sounds, nondistended, nontender, No ascites, , No masses, no hepatosplenomegaly. Extremities : No clubbing, No peripheral edema, full range of motion, no deformity, no muscle atrophy, Guerra catheter containing romero-colored urine. Integumentary: No rashes, petechia, suspected lesions. Lymphatics: No axilla or cervical lymphadenopathy. Neurology; alert awake oriented x3, no focal neurologic deficit, normal affection . mood and behavior. - Studies Medications List Reviewed: Yes Assessment And Plan - Current Problems (Diagnosis) (1) Acute on chronic combined systolic and diastolic heart failure Current Visit: No Status: Acute Plan: Patient exam shows +2 BLE. would recommend to continue Lasix 40 mg IV BID keep holding entresto due to worsening kidney function Monitor input and output closely Monitor and correct electrolytes lower coreg to 12.5 mg po BID due to soft BP. will hold on right heart cath as patient kidney function is improving with diuresis. (2) Atrial fibrillation Current Visit: No Status: Acute Plan: on amidoarone 100 mg po BID cOREG 25 MG PO bid Will need to be started on Eliquis 2.5 mg po BID on discharge.
[2024-10-12] MEDS: BUMETANIDE 1 MG TABLET PO SCH (11:22)
[2024-10-12] MEDS: MIDODRINE HCL 5 MG TABLET PO SCH (15:39)
--- NOTE | 2024-10-12 19:22 | P.PN ---
Date of Service: 10/12/24 Vital Signs Temp Pulse Resp BP Pulse Ox 97.5 F 82 20 113/55 L 92 10/12/24 16:00 10/12/24 16:00 10/12/24 16:00 10/12/24 16:00 10/12/24 16:00 Medications Acetaminophen (Acetaminophen 325 Mg Tablet) 650 mg PO Q4HP PRN PRN Reason: Pain scale 5-7 (Moderate) Last Admin: 10/10/24 11:16 Dose: 650 mg Amiodarone HCl (Amiodarone Hcl 200 Mg Tab) 100 mg PO BID [facility] Atorvastatin Calcium (Atorvastatin 10 Mg Tab) 10 mg PO BEDTIME [facility] Last Admin: 10/11/24 21:00 Dose: 10 mg Bumetanide (Bumetanide 1 Mg Tablet) 2 mg PO DAILY [facility] Last Admin: 10/12/24 11:22 Dose: 2 mg Carvedilol (Carvedilol 25 Mg Tab) 25 mg PO BID [facility] Last Admin: 10/12/24 15:41 Dose: 25 mg Loperamide HCl (Loperamide Hcl 2 Mg Capsule) 2 mg PO UD PRN PRN Reason: DIARRHEA Last Admin: 10/11/24 13:44 Dose: 2 mg Midodrine (Midodrine Hcl 5 Mg Tablet) 5 mg PO TID [facility] Last Admin: 10/12/24 15:39 Dose: 5 mg Ondansetron HCl (Ondansetron 4 Mg/2 Ml Vial) 4 mg IV Q6H PRN PRN Reason: NAUSEA / VOMITING Last Admin: 10/12/24 01:20 Dose: 4 mg Tamsulosin HCl (Tamsulosin 0.4 Mg Sr Cap) 0.4 mg PO BEDTIME [facility] Last Admin: 10/10/24 21:13 Dose: 0.4 mg Assessment/ Plan: Nephrology No dyspnea No chest pain Nausea resolved No acute events overnight Vitals, medications, blood work and imaging reviewed in the chart NAD. MMM. NCAT. Normal Respiratory Effort. S1S2. ND Abd. No C/C. LE Edema 1+. No rash. AAO. Normal speech. Guerra Dark Stage II JESUS may be due to diuresis CKD III -No NSAIDs Metabolic Acidosis -Start oral bicarb HTN with CKD/ CHF -Continue Coreg Systolic Diastolic CHF, A/C -Lasix as ordered Anemia in chronic illness Macrocytosis Thrombocytopenia -Monitor CBC BPH with LUTS -Continue tamsulosin Case reviewed with Dr. Montano
[2024-10-12] MEDS: AMIODARONE HCL 200 MG TAB PO SCH (21:54)
[2024-10-12] MEDS: SODIUM BICARB 325 MG TAB PO SCH (21:57)
--- NOTE | 2024-10-13 07:47 | RAD REPORT ---
EXAMINATION: ONE VIEW CHEST XR CLINICAL INDICATION: Follow-up on pulmonary edema after diuresis TECHNIQUE: Frontal chest projection is submitted. Examination is limited by patient positioning and t echnique. COMPARISON: 10/10/2024 FINDINGS: [id number] pulmonary edema. This appears essentially stable since comparison study. The heart i s moderately enlarged. Single-lead pacer/defibrillator device. No displaced fractures identified. Sternotomy wires. IMPRESSION: [id number] CHF versus volume overload pattern, unchanged since comparative study.
--- NOTE | 2024-10-13 11:26 | P.PN ---
Subjective Date of Service: 10/13/24 Chief Complaint: CHF exacerbation Subjective: No new changes He is demented and a poor historian, the nurse at bedside to report he does not have any more diarrhea, he is pulling on his Guerra catheter. No clinical bleeding such as hematuria or melena or hematochezia or gum bleeding. Review of Systems Other: Consitutional; fever(-), chills (-), rigor(-), night sweat(-), unintentional weight loss(-), malaise (-) HEENT; diplopia (-), rhinorrhea (-), epistaxis (-), otorrhea (-), otalgia (-) Respiratory; shortness of breath (-), wheezing (-), cough (-), sputum (-), pleuritic chest pain (-) Cardiovascular; chest pain (-), peripheral edema (-), paroxysmal nocturnal dyspnea (-), orthopnea (-) Gastrointestinal; nausea (-), vomiting (-), abdominal pain (-), diarrhea (-), constipation (-), melena (-), hematochezia (-) Genitourinary; urinary frequency (-), dysuria (-), urgency (-), flank pain (-), gross hematuria (-), incontinence (-) Skin; rash (-), 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 General: Not acutely ill looking, in no apparent distress,. HEENT: Normocephalic, atraumatic, nonicteric sclera, nonanemic conjunctive. Neck: Supple, without JVD or goiter or thyroid mass. Respiratory: Normal breathing effort, clear to auscultation bilaterally, no crackles no wheezing or rhonchi. Cardiovascular: Irregularly irregular heartbeat, S1, S2 normal, no murmur no gallop. Gastrointestinal: Normal bowel sounds, nondistended, nontender, No ascites, , No masses, no hepatosplenomegaly. Extremities : No clubbing, No peripheral edema, full range of motion, no de formity, no muscle atrophy, Guerra catheter containing romero-colored urine. Integumentary: No rashes, petechia, suspected lesions. Lymphatics: No axilla or cervical lymphadenopathy. Neurology; alert awake oriented x3, no focal neurologic deficit, normal affection . mood and behavior. - Studies Medications List Reviewed: Yes Assessment And Plan - Plan 84-year-old man with a past medical history significant for dementia, BPH, CHF, HTN, HDL, and A-fib s/p CABG & ICD placement scented to the emergency room complaining of shortness of breath and chest pain x 1 day. #1 acute exacerbation of heart failure with reduced ejection fraction status post AICD/PPM status post CABG The proBNP over 1000, chest x-ray showed pulmonary edema on admission, off furosemide infusion, follow-up x-ray shows no significant improvement of pulmonary edema, I will continue Bumex 2 mg once a day, cardiology note appreci ated, scheduled for cardiac cath when his renal function improves #2 JESUS on CKD BUN/creatinine stable 72/3., which is acceptable after aggressive diuresis, bicarb 19, normokalemia #3 acute diarrhea Resolved, C. difficile antigen negative,, supportive treatment with Imodium as needed #4 acute urinary retention secondary to BPH Keep Guerra catheter in, tamsulosin #5 permanent atrial fibrillation status post AICD/permanent pacemaker Heart rate at target, blood pressure reasonably controlled on amiodarone and carvedilol, I will continue current regimen #6 chronic severe thrombocytopenia of unclear cause Platelet stable around 20K, no clinical bleeding, no transfusion indicated Disposition; plan to discharge home in a few days with or without coronary angiogram
--- NOTE | 2024-10-13 16:20 | P.PN ---
Nephrology note (S) Pt known to me from clinic consultation this summer but lost to f/u since, renal function tests have worsened over the past few mo/days, pt denies dyspnea at rest, not needing O2, has had diarrhea in recent days without abd pain. Vitals, medications, blood work and imaging reviewed in the chart Exam NAD. Not needing O2, non tachypnec Normal Respiratory Effort. b/l air entry. Non tachy, regular, cardiac murmur present. Soft, mild distention, NT, rendon present 2+ distal edema b/l, shins non tender. Awake, alert, non focal S1S2. A/P) Stage II JESUS 2nd to Type 1/2 CRS on underlying CKD NOS, with echogenic kidneys reported on u/s. -Cr level has been rising in past mo/days, worsened function since eval in clinic in March. Cont diuretics and will have to see how his kidneys ultimately turn around with decongestive therapy but will need to monitor closely as with lower BP, other, there is risk for renal hypoperfusion. Dilated ischemic CMP. Systolic Diastolic CHF, A/C. Acute pulm edema. Dilated IVC reported, elevated RA pressure noted on TTE -Escalate Bumex to BID, monitor UOP closely. Keep off Entresto due to soft BP and unable to add other GDMT currently due to JESUS Hyperuricemia without mention of gout -In the setting of his renal impairment, chronic diuretic use, other. Will monitor closely. BPH with LUTS, bladder wall thickening noted on CT imaging -Maintain rendon for now for accurate I/O with escalated diuretics
[2024-10-13] MEDS: BUMETANIDE 1 MG TABLET PO SCH (18:06)
[2024-10-14 05:48] LABS: Hemoglobin 11.7 g/dL (13.6-17.9); MCH 36.7 pg (27.0-35.0); MCHC 34.3 g/dL (32.0-36.0); MCV 106.8 fL (80-100); MPV 9.4 fL (7.6-11.3); Platelets 42 thou/uL (152-406); RBC Red Blood Cell Count 3.18 M/uL (4.33-5.43); Red Cell Distribution Width 15.6 % (12.1-15.2)
[2024-10-14 06:16] LABS: Anion Gap 11.8 mEq/L (5.0-15.0); Potassium 2.8 mEq/L (3.5-5.1)
[2024-10-14 07:27] LABS: White Blood Cell Scan OK (OK)
[2024-10-14 07:28] LABS: Blood Morphology Comment NOTED (NOT SEEN); Macrocytosis 1+; Platelet Estimate DECR
[2024-10-14] MEDS: KCL 20 MEQ/100 mL IVPB 20 MEQ/100 ML BAG IV SCH (07:36)
[2024-10-14] MEDS: AMIODARONE HCL 200 MG TAB PO SCH (09:00)
--- NOTE | 2024-10-14 10:43 | P.PN ---
Date of Service: 10/14/24 Vital Signs Temp Pulse Resp BP Pulse Ox 98.0 F 74 20 101/52 L 93 10/14/24 08:00 10/14/24 09:22 10/14/24 08:00 10/14/24 09:22 10/14/24 08:00 Medications Acetaminophen (Acetaminophen 325 Mg Tablet) 650 mg PO Q4HP PRN PRN Reason: Pain scale 5-7 (Moderate) Last Admin: 10/13/24 16:10 Dose: 650 mg Amiodarone HCl (Amiodarone Hcl 200 Mg Tab) 100 mg PO DAILY [facility] Last Admin: 10/14/24 09:00 Dose: Not Given Atorvastatin Calcium (Atorvastatin 10 Mg Tab) 10 mg PO BEDTIME [facility] Last Admin: 10/13/24 21:19 Dose: 10 mg Bumetanide (Bumetanide 1 Mg Tablet) 2 mg PO BIDL [facility] Last Admin: 10/14/24 09:00 Dose: Not Given Potassium Chloride (Kcl 20 Meq/100 Ml Ivpb (Premix)) 20 meq in 100 mls @ 50 mls/hr IV Q2H [facility]; Protocol Stop: 10/14/24 13:59 Last Admin: 10/14/24 09:45 Dose: 100 mls Loperamide HCl (Loperamide Hcl 2 Mg Capsule) 2 mg PO UD PRN PRN Reason: DIARRHEA Last Admin: 10/13/24 15:51 Dose: 2 mg Metoprolol Tartrate (Metoprolol Tar 25 Mg Tab) 25 mg PO BID 6AM 6PM [facility] Midodrine (Midodrine Hcl 5 Mg Tablet) 5 mg PO TID [facility] Last Admin: 10/14/24 09:00 Dose: Not Given Ondansetron HCl (Ondansetron 4 Mg/2 Ml Vial) 4 mg IV Q6H PRN PRN Reason: NAUSEA / VOMITING Last Admin: 10/12/24 01:20 Dose: 4 mg Tamsulosin HCl (Tamsulosin 0.4 Mg Sr Cap) 0.4 mg PO BEDTIME [facility] Last Admin: 10/13/24 21:19 Dose: 0.4 mg Assessment/ Plan: Nephrology No dyspnea No chest pain No acute events overnight Vitals, medications, blood work and imaging reviewed in the chart NAD. MMM. NCAT. Normal Respiratory Effort. S1S2. ND Abd. No C/C. LE Edema 1+. No rash. AAO. Normal speech. Guerra Dark EXAMINATION: ONE VIEW CHEST XR CLINICAL INDICATION: Follow-up on pulmonary edema after diuresis TECHNIQUE: Frontal chest projection is submitted. Examination is limited by patient positioning and technique. COMPARISON: 10/10/2024 FINDINGS: [id number] pulmonary edema. This appears essentially stable since comparison study. The heart is moderately enlarged. Single-lead pacer/defibrillator device. No displaced fractures identified. Sternotomy wires. IMPRESSION: [id number] CHF versus volume overload pattern, unchanged since comparative study. Stage II JESUS likely CRS CKD III -No NSAIDs Hypokalemia -Replete as ordered -Start Spironolactone as tolerated Metabolic Acidosis resolved -DC oral bicarb HTN with CKD/ CHFcomplicated by hypotension -Change Coreg to Metoprolol due to hypotension -Continue Midodrine Systolic Diastolic CHF, A/C -Continue Bumex -Start Spironolactone as tolerated Anemia in chronic illness Macrocytosis Thrombocytopenia -Monitor CBC BPH with LUTS -Continue tamsulosin Hospitalist and Client Program Manager notes reviewed
--- NOTE | 2024-10-14 11:00 | P.PN ---
Subjective Date of Service: 10/14/24 Chief Complaint: CHF exacerbation Subjective: No new changes, No C/O voiced, Tolerating diet, Ambulating, Improving Review of Systems 10-point ROS is otherwise unremarkable Physical Examination - Vital Signs Temperature: 98.0 F Blood Pressure: 101/52 Pulse: 74 Respirations: 20 Pulse Ox (%): 93 - Physical Exam General: Alert, In no apparent distress HEENT: Atraumatic, PERRLA, EOMI Neck: Supple, JVD not distended Respiratory: Clear to auscultation bilaterally, Normal air movement Cardiovascular: Regular rate/rhythm, Normal S1 S2 Gastrointestinal: Normal bowel sounds, No tenderness Musculoskeletal: No tenderness Integumentary: No rashes Neurological: Normal speech, Normal tone, Normal affect Lymphatics: No axilla or inguinal lymphadenopathy Other Physical/Emotional Findings: - Physical Exam. General: Not acutely ill looking, in no apparent distress,. HEENT: Normocephalic, atraumatic, nonicteric sclera, nonanemic conjunctive. Neck: Supple, without JVD or goiter or thyroid mass. Respiratory: Normal breathing effort, clear to auscultation bilaterally, no crackles no wheezing or rhonchi. Cardiovascular: Irregularly irregular heartbeat, S1, S2 normal, no murmur no gallop. Gastrointestinal: Normal bowel sounds, nondistended, nontender, No ascites, , No masses, no hepatosplenomegaly. Extremities : No clubbing, No peripheral edema, full range of motion, no d eformity, no muscle atrophy, Guerra catheter containing romero-colored urine. Integumentary: No rashes, petechia, suspected lesions. Lymphatics: No axilla or cervical lymphadenopathy. Neurology; alert awake oriented x3, no focal neurologic deficit, normal affection . mood and behavior. - Studies Medications List Reviewed: Yes Assessment And Plan - Current Problems (Diagnosis) (1) Acute on chronic combined systolic and diastolic heart failure Current Visit: No Status: Acute Plan: Patient exam shows +2 BLE. continue Bumex 2 mg po BID keep holding entresto due to worsening kidney function Monitor input and output closely Monitor and correct electrolytes lower lopressor to 12.5 mg po BID (Hold if BP is less than 100 or HR less than 50) No plan for coronary angiogram due to patient CKD or right heart cath as kidney function is improving during hospital stay (2) Atrial fibrillation Current Visit: No Status: Acute Plan: on amidoarone 100 mg po BID lower lopressor to 12.5 mg po BID (Hold if BP is less than 100 or HR less than 50) start Eliquis 2.5 mg po BID
[2024-10-14] MEDS: POTASSIUM 25 MEQ EFFERV TAB PO ONE ×2 (11:05→12:45)
[2024-10-14] MEDS: SPIRONOLACTONE 25 MG TABLET PO SCH (11:44)
--- NOTE | 2024-10-14 12:07 | P.PN ---
Subjective Date of Service: 10/14/24 Chief Complaint: CHF exacerbation Subjective: No new changes Outpatient state that he is doing fine, no complaint. Denied any dizziness or chest pain.. Review of Systems Other: Consitutional; fever(-), chills (-), rigor(-), night sweat(-), unintentional weight loss(-), malaise (-) HEENT; diplopia (-), rhinorrhea (-), epistaxis (-), otorrhea (-), otalgia (-) Respiratory; shortness of breath (-), wheezing (-), cough (-), sputum (-), pleuritic chest pain (-) Cardiovascular; chest pain (-), peripheral edema (-), paroxysmal nocturnal dyspnea (-), orthopnea (-) Gastrointestinal; nausea (-), vomiting (-), abdominal pain (-), diarrhea (-), constipation (-), melena (-), hematochezia (-) Genitourinary; urinary frequency (-), dysuria (-), urgency (-), flank pain (-), gross hematuria (-), incontinence (-) Skin; rash (-), 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 General: Emaciated, not acutely ill looking, in no apparent distress,. HEENT: Normocephalic, atraumatic, nonicteric sclera, nonanemic conjunctive. Neck: Supple, without JVD or goiter or thyroid mass. Respiratory: Normal breathing effort, clear to auscultation bilaterally, no crackles no wheezing or rhonchi. Cardiovascular: Irregularly irregular heartbeat, S1, S2 normal, no murmur no gallop. Gastrointestinal: Normal bowel sounds, nondistended, nontender, No ascites, , No masses, no hepatosplenomegaly. Extremities : No clubbing, No peripheral edema, full range of motion, no deformity, no muscle atrophy, Guerra catheter containing romero-colored urine. Integumentary: No rashes, petechia, suspected lesions. Lymphatics: No axilla or cervical lymphadenopathy. Neurology; alert awake oriented x3, no focal neurologic deficit, normal affection . mood and behavior. - Studies Medications List Reviewed: Yes Assessment And Plan - Plan 84-year-old man with a past medical history significant for dementia, BPH, CHF, HTN, HDL, and A-fib s/p CABG & ICD placement scented to the emergency room complaining of shortness of breath and chest pain x 1 day. #1 acute exacerbation of heart failure with reduced ejection fraction status post AICD/PPM status post CABG The proBNP over 1000, chest x-ray showed pulmonary edema on admission, off furosemide infusion, follow-up x-ray shows no significant improvement of pu lmonary edema, I will continue Bumex 2 mg once a day, cardiology note appreciated, no plan for cardiac cath #2 JESUS on CKD BUN/creatinine stable around 70/3., which is acceptable after aggressive diur esis, bicarb 19, normokalemia #3 acute diarrhea Resolved, C. difficile antigen negative,, supportive treatment with Imodium as needed #4 acute urinary retention secondary to BPH Keep Guerra catheter in, tamsulosin #5 permanent atrial fibrillation status post AICD/permanent pacemaker Heart rate at target, asymptomatic borderline hypotension, I will cut down amiodarone to 100 mg once a day, carvedilol stable to 12.5 mg twice daily #6 chronic severe thrombocytopenia of unclear cause Platelet stable around 42K, no clinical bleeding, no transfusion indicated Disposition; plan to discharge home tomorrow if his blood pressure and heart rate is stable after adjustment of his medication today.
[2024-10-14] MEDS: METOPROLOL TAR 25 MG TAB PO SCH (17:04)
[2024-10-14] MEDS ORDERED: METOPROLOL TAR 25 MG TAB PO SCH ×2 (18:00)
[2024-10-14] MEDS ORDERED: carvediloL 12.5 MG TAB PO SCH (18:00)
[2024-10-15 04:50] VITALS: O2SAT 94
[2024-10-15 05:21] LABS: Anion Gap 7.5 mEq/L (5.0-15.0); Magnesium 1.7 mg/dL (1.6-2.4); Phosphorus 2.1 mg/dL (2.5-4.9); Potassium 3.5 mEq/L (3.5-5.1)
[2024-10-15] MEDS: POTASSIUM CL SA 10 MEQ TAB PO ONE ×2 (07:38→07:57)
[2024-10-15] MEDS: POTASS/SODIUM PHOSPHATE 1 PKT POWD.PACK ONE (07:38)
[2024-10-15] MEDS: SPIRONOLACTONE 25 MG TABLET PO SCH (07:54)
[2024-10-15] MEDS: MAGNESIUM SULFATE 1 gm IVPB 1 GM/100 ML BAG IV ONE (07:57)
[2024-10-15] MEDS: POTASS/SODIUM PHOSPHATE 1 PKT POWD.PACK PO SCH (07:57)
[2024-10-15 07:58] VITALS: BP 110/49
[2024-10-15 08:38] VITALS: TEMP 99.1
--- NOTE | 2024-10-15 09:52 | P.DS ---
Admission Date: 10/07/24 Discharge Date: 10/15/24 Disposition: ROUTINE DISCHARGE Discharge Condition: GOOD Reason for Admission: CHF exacerbation Brief History of Present Illness: 84-year-old man with a past medical history significant for dementia, BPH, CHF, HTN, HDL, and A-fib s/p CABG & ICD placement was brought to the emergency room complaining of shortness of breath and chest pain x 1 day. Hospital Course: He was treated with furosemide infusion and oral diuretics, sodium bicarbonate and Guerra catheter placement. He gradually improved, his renal function stabilized, cardiology initially planning to coronary angiogram once his kidney function improved but decided not to perform any tests including coronary angiogram and manage him conservatively. He is contraindicated to anticoagulation for severe chronic thrombocytopenia. He did not require any platelet or PRBC transfusion, there was no clinical bleeding during hospitalization. It is advised to keep his Guerra catheter in after discharge and follow-up with urologist for BPH with bladder outlet obstruction symptoms. He is being discharged home with his . 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 #1 acute exacerbation of heart failure with reduced ejection fraction status post AICD/PPM and CABG The proBNP over 1000, chest x-ray showed pulmonary edema on admission, follow-up x-ray showed stable pulmonary edema, continued on Bumex 2 mg once a day, unable to initiate guideline directed therapy for borderline hypotension, cardiology note appreciated, no plan for cardiac cath #2 JESUS on CKD BUN/creatinine stable around 70/3., which is acceptable after aggressive diuresis, bicarb 19, normokalemia #3 acute diarrhea Resolved, C. difficile antigen negative,, supportive treatment with Imodium as needed #4 acute urinary retention secondary to bladder outlet obstruction with BPH Keep Guerra catheter in, tamsulosin, finasteride #5 permanent atrial fibrillation status post AICD/permanent pacemaker Heart rate at target, asymptomatic borderline hypotension, amiodarone dose decreased to 100 mL once a day, change from carvedilol to metoprolol 12.5 mg twice daily #6 chronic severe thrombocytopenia of unclear cause Platelet stable around 20-42K, no clinical bleeding, no transfusion indicated Vital Signs/Physical Exam: Temp Pulse Resp BP Pulse Ox 99.1 F 75 19 110/49 L 94 10/15/24 08:00 10/15/24 08:00 10/15/24 08:00 10/15/24 08:00 10/15/24 08:00 Other Physical/Emotional Findings: - Physical Exam. General: Emaciated, not acutely ill looking, in no apparent distress,. HEENT: Normocephalic, atraumatic, nonicteric sclera, nonanemic conjunctive. Neck: Supple, without JVD or goiter or thyroid mass. Respiratory: Normal breathing effort, clear to auscultation bilaterally, no crackles no wheezing or rhonchi. Cardiovascular: Irregularly irregular heartbeat, S1, S2 normal, no murmur no gallop. Gastrointestinal: Normal bowel sounds, nondistended, nontender, No ascites, , No masses, no hepatosplenomegaly. Extremities : No clubbing, No peripheral edema, full range of motion, no deformity, no muscle atrophy, Guerra catheter containing romero-colored urine. Integumentary: No rashes, petechia, suspected lesions. Lymphatics: No axilla or cervical lymphadenopathy. Neurology; alert awake oriented x2, answer simple question and follow verbal commands , no focal neurologic deficit, normal affection . mood and behavior. Laboratory Data at Discharge: WBC 6.90 thou/uL (4.3-10.9) 10/14/24 05:30 Hgb 11.7 g/dL (13.6-17.9) L 10/14/24 05:30 Hct 34.0 % (39.6-49.0) L 10/14/24 05:30 Plt Count 42 thou/uL (152-406) L 10/14/24 05:30 PT 14.6 SECONDS (9.4-12.5) H 10/07/24 18:30 INR 1.31 10/07/24 18:30 Sodium 139 mEq/L (136-145) 10/15/24 04:52 Potassium 3.5 mEq/L (3.5-5.1) D 10/15/24 04:52 BUN 55 mg/dL (7-18) H 10/15/24 04:52 Creatinine 1.83 mg/dL (0.70-1.30) H 10/15/24 04:52 Glucose 114 mg/dL (74-106) H 10/15/24 04:52 Uric Acid 10.6 mg/dL (3.5-7.2) H 10/12/24 05:11 Phosphorus 2.1 mg/dL (2.5-4.9) L 10/15/24 04:52 Magnesium 1.7 mg/dL (1.6-2.4) 10/15/24 04:52 Total Bilirubin 1.6 mg/dL (0.2-1.0) H 10/10/24 06:37 AST 17 U/L (15-37) 10/10/24 06:37 ALT < 14 U/L (16-61) L 10/10/24 06:37 Alkaline Phosphatase 63 U/L (45-117) 10/10/24 06:37 Home Medications: Pravastatin [Pravachol*] 80 mg PO BEDTIME 05/09/24 Tamsulosin [Flomax*] 0.4 mg PO BEDTIME 05/09/24 Amiodarone HCl [Cordarone*] 100 mg PO DAILY #15 tab 10/15/24 Bumetanide [Bumex] 2 mg PO DAILY #30 10/15/24 Finasteride [Proscar*] 5 mg PO BEDTIME #30 tab 10/15/24 Metoprolol Tartrate [Lopressor*] 12.5 mg PO BID 6AM 6PM #15 tab 10/15/24 Spironolactone [Aldactone*] 12.5 mg PO DAILY #15 tab 10/15/24 New Medications: Spironolactone [Aldactone*] 12.5 mg PO DAILY #15 tab Bumetanide [Bumex] 2 mg PO DAILY #30 Amiodarone HCl [Cordarone*] 100 mg PO DAILY #15 tab Metoprolol Tartrate [Lopressor*] 12.5 mg PO BID 6AM 6PM #15 tab Finasteride [Proscar*] 5 mg PO BEDTIME #30 tab Diet: Renal Activity: Ad ita Followup: Dorie Turpin NP [Primary Care Provider] - Morales Molina [ACTIVE - CAN ADMIT] -
[2024-10-15] MEDS ORDERED: FINASTERIDE 5 MG TAB PO SCH (21:00)
== END 2024-10-15 10:49 | disposition home or self-care (01) | DRG 291 ==
LOC: ER 14:52 → ERHOLD 21:11 → 2ND 22:42
PROVIDERS: ADMIT Hospitalist; ATTEND Internal Medicine
PROC: 0T9B70Z Drainage of Bladder with Drainage Device, Via Natural or Artificial Opening (ICD-10-PCS; principal; 2024-10-10)
DX: I13.0 Hypertensive heart and chronic kidney disease with heart failure and stage 1 through stage 4 chronic kidney disease, or unspecified chronic kidney disease (principal); I50.23 Acute on chronic systolic (congestive) heart failure; N17.9 Acute kidney failure, unspecified; E87.20 Acidosis, unspecified; I48.21 Permanent atrial fibrillation; N18.30 Chronic kidney disease, stage 3 unspecified; D63.1 Anemia in chronic kidney disease; E78.5 Hyperlipidemia, unspecified; D69.6 Thrombocytopenia, unspecified; E87.6 Hypokalemia; I27.20 Pulmonary hypertension, unspecified; D75.89 Other specified diseases of blood and blood-forming organs; N40.1 Benign prostatic hyperplasia with lower urinary tract symptoms; R33.8 Other retention of urine; R19.7 Diarrhea, unspecified; I25.2 Old myocardial infarction; Z88.5 Allergy status to narcotic agent; Z95.1 Presence of aortocoronary bypass graft; Z79.02 Long term (current) use of antithrombotics/antiplatelets; Z90.49 Acquired absence of other specified parts of digestive tract; Z79.899 Other long term (current) drug therapy; Z87.891 Personal history of nicotine dependence; Z85.828 Personal history of other malignant neoplasm of skin; Z95.810 Presence of automatic (implantable) cardiac defibrillator
CPT/HCPCS: 36415; 71045; 74176; 76770; 76870; 80048; 80053; 80069; 80076; 81001; 82550; 82607; 83735; 83880; 84100; 84132; 84439; 84443; 84481; 84484; 84550; 85025; 85027; 85610; 86850; 86900; 86901; 87324; 93005; 93306; 93970; 94760; 99285; J1720; J1940; J2405; J2785; J2919; J3420; J3475; J3480; P9047